=== PATIENT | male | born 1960 | race Caucasian/White ===

== ENCOUNTER 2023-12-05 14:05 | Inpatient (IN) | payer OTHER, SELFPAY ==
[2023-12-05] VITALS (11 sets, daily range): BP systolic 82–163; BP diastolic 60–145; BMI 33.0
--- NOTE | 2023-12-05 12:46 | ED.GENMED ---
History of Present Illness
General
Chief Complaint: Skin Problem
Source: patient, records and spouse
Time Seen by Provider: 12/05/23 12:28
Travel History
Have you had any contact with someone who has COVID-19?: No
Do you have any symptoms of coronavirus? Fever > 100 degrees, chills, cough, shortness of breath, sore throat, loss of taste or smell, muscle aches, or headache?: No
History of Present Illness
History of Present Illness:
63-year-old male presented to the ER via EMS from [facility] for evaluation of left wrist erythema, edema, discharge that is reportedly not responding to IV vancomycin for which patient is currently being treated for a septic joint with bacteremia.
Patient has a PICC line in the same left upper extremity as he also had infection within the right wrist but the right wrist is reportedly getting much better. Patient's Vanco trough reportedly came back at 25 today. is concerned because the
last few days patient is also started to hallucinate stating that he is oftentimes stating that he is at home and sometimes with some babbling speech. Patient has been at [facility] for over 30 days and this is not typical of him. Patient has no
concerns at this time, denying any fevers, pain or any other concerns.
Past History
Past History
ED Past Medical History: Arrthythmia, CHF, IDDM, Psychiatric (depression) and Other (chronic back pain. chronic opioid use)
ED Past Surgical History: Orthopedic and Other
Social History
Tobacco: Non-smoker
Alcohol: None
Drug: None
Personal:
Living: with family
Employment: Employed
Family History
Family History: Other (Noncontributory)
Review of Systems
Review of Systems
All Other Systems: ROS reviewed and negative except as documented in HPI and ROS
Phy Exam
Physical Exam
Physical Exam:
GENERAL: Alert , in no apparent distress
EYE: conjunctiva clear
Head: Normocephalic atraumatic
NECK: Supple,
ENT: mmm.
LUNGS: no acute respiratory distress
NEUROLOGICAL: Alert and oriented
SKIN: Warm and dry, left wrist has significant erythema along the dorsum of the hand over the metacarpals extending into the distal to mid forearm on the left. There is a small area of dehisced wound where there is blood-tinged serosanguineous
drainage. Patient has a left wrist drop and difficulty extending fingers which he reports is baseline since his surgeries.
MUSCULOSKELETAL: well perfused. Easily palpable radial pulse. Cap refill less than 2 seconds.
PSYCH: Normal and appropriate interaction.
Scores
Heart Failure Risk
Heart Failure Risk Score: Not Applicable
Heart Score for Chest Pain Patients
STEMI patient?: Not applicable
Withdrawal Assessment of Alcohol
Withdrawal Assessment Completed?: Not applicable
Course
Orders/Labs/Results
Orders:
Orders
12/05/23 12:37
Basic Metabolic Panel Urgent
Complete Blood Count/With Diff Urgent
Comprehensive Metabolic Panel Urgent
ESR [Erythrocyte Sed Rate] Urgent
CR Chest - 2 Views Urgent
Comment:
Reason For Exam: PICC placement check
12/05/23 12:40
Consult Infectious Disease [INFECTIOUS DISEASE CONSULT] Urgent
Consulting Provider: Mirian Yeager
Was physician already notified: Yes
CRP [C-Reactive Protein] Urgent
12/05/23 12:42
CR Wrist - Left Min 3 Views Urgent
Comment:
Reason For Exam: recent septic joint, worsening erythema
12/05/23 12:45
Blood Culture Q30M
JUSTIN Source: Blood/Venous
Specimen Description:
12/05/23 13:15
Blood Culture Q30M
JUSTIN Source: Blood/Venous
Specimen Description:
12/05/23 13:37
CT Head W/o Iv Contrast Urgent
Comment:
Reason For Exam: confusion
12/05/23 13:39
Admit/Transfer Patient As Directed
Co-Sign Provider:
Level of Care: Inpatient admission
Assign to:: Medical/Surgical
Physician / Group: Jack Shaw
Diagnosis: Left wrise osteomyelitis, hallucination
Reason for Hospitalization: Left wrise osteomyelitis, hallucination
Expected length of stay greater than two midnights?: Yes
ELOS- Estimated Length of Stay in days: 3
I certify the patient meets the requirements for IP care: Yes
12/05/23 13:43
Code Status As Directed
Resuscitation Status: Full Code
12/05/23 13:47
Non Vasc Upper Ext Left US [US Non Vasc UPPER Ext LT] Urgent
Comment:
Reason For Exam: possible septic joint
Vital Signs
Initial and Last Documented VS:
Initial Vital Signs
BP
102/66
12/05/23 12:10
Last Documented Vital Signs
Temp Pulse Resp BP Pulse Ox
98.5 F 66 16 114/69 96
12/05/23 12:22 12/05/23 12:22 12/05/23 12:22 12/05/23 13:00 12/05/23 12:36
MDM/Problems Addressed
Differential Diagnosis Includes:
Recurring left wrist cellulitis, septic joint, abscess, postop inflammatory changes
MDM/Problems Addressed:
Patient presenting to the emergency department for evaluation of continued and worsening left wrist erythema and edema despite being on multiple antibiotics for recent septic joint. Patient has undergone multiple surgeries with debridement and has
been on IV antibiotics for an extended period of time. He was sent to the emergency department to be evaluated by infectious disease to help facilitate further care as his current antibiotic regimen does not seem to be working. Will notify both
infectious disease as well as orthopedic team. I do anticipate need for admission.
Chronic conditions affecting care: DM
*Radiology
Radiology exam reviewed: radiology read reviewed
*Pulse Oximetry
Patient hypoxic: no
*Critical Care Note
Total Time (30-74mins, 75-104mins- exclusive of procedures): Not Applicable
Patient Management
Discussion with other providers: Hospitalist and Program Checker
Escalation/DeEscalation of care consider admission/obs:
12/05/2023 1250 PM: I spoke with both infectious disease as well as orthopedics. ID will evaluate the patient. Orthopedics is in agreement with workup thus far but is requesting us to add on an x-ray of the wrist. They will be in consult as well.
Hospitalist is aware and accepts patient for continued evaluation and treatment. I did receive another notification from orthopedics requesting an ultrasound as patient did not do well with MRIs last time he was here.
ED Attending Note
-
Portions of this chart may have been created with voice recognition software.� Occasional wrong word or��sound alike� substitutions may have occurred due to the inherent limitations of voice recognition software.
Discharge Plan
Departure
Patient Disposition: Admit
Date of Disposition: 12/05/23
Time of Disposition: 13:15
Presentation/result/management discussed w/ accepting MD/DO: Hospitalist
Discharge Problem:
Septic arthritis of wrist, left
Interventions
Interventions:
*Risk Screen - Suicide Last Done: 12/05/23 12:22
*General Assessment Last Done: 12/05/23 12:22
*Neglect/Abuse Screening Last Done: 12/05/23 12:22
ED- Fall Risk Assessment Last Done: 12/05/23 12:31
*ED COVID-19 Vaccine History Last Done: 12/05/23 12:22
ED-Skin Assessment Last Done: 12/05/23 12:31
--- NOTE | 2023-12-05 13:38 | PHANOTE ---
called [facility], no paperwork found with patient , used paperwork for patient on 11/15/23
--- NOTE | 2023-12-05 13:48 | HPS.HSE ---
Family Physician
-
Family Physician: Ck Ledezma
Chief Complaint
-
Left wrist swelling, hallucination
History of Present Illness
Patient is 64-year-old male with past medical history of chronic diastolic congestive heart failure, history of severe RA with recurrent flare, paroxysmal atrial fibrillation on Eliquis, chronic pain and narcotic dependence, essential hypertension,
hyperlipidemia, neuropathy, history of lumbar spinal surgery, MSSA bacteremia, recent bilateral wrist septic arthritis requiring washout and on IV antibiotics was sent to ER from [facility] after patient was noted to having recurrence of left
wrist swelling. Patient initially had right wrist erythema/swelling/pain which did not improve with usual steroid injections. Patient required I&D washout of the joint and concern of septic arthritis. Patient also had developed new left wrist
septic arthritis for which patient underwent washout. Postprocedure patient was maintained on IV antibiotics. Unfortunately this did not improve and patient required repeat washout on 11/15. At this point patient in rehab and on vancomycin and
Levaquin through 12/12. Unfortunately patient started having recurrent left wrist swelling, patient had an outpatient ultrasound of the area which showed possible small fluid collection. No reported fever episode.
On top of that patient started to having episodes of hallucination yesterday and was seeing kids in the room. Patient oriented to time place and person in ER. Per spouse patient nonambulatory for last 6 months, have lumbar spinal surgery in the
past and weakness from that.
Patient denies having chest pain/shortness of breath/abdominal pain/nausea/vomiting/diarrhea.
Medical History
Past Medical History
Past Medical History: Reports Other
Additional Past Medical History:
chronic diastolic congestive heart failure, history of severe RA with recurrent flare, paroxysmal atrial fibrillation on Eliquis, chronic pain and narcotic dependence, essential hypertension, hyperlipidemia, neuropathy, history of lumbar spinal
surgery, MSSA bacteremia, recent bilateral wrist septic arthritis
Past Surgical History: Reports Other
Social History
Tobacco: Former Smoker
Alcohol: None
Personal:
Living: Other ([facility])
Family History
Family History: Not pertinent
Allergies / Home Medications
Allergies reflects when Allergies were last updated in [employer].
Home Medications with original date entered in [employer]
Allergy/Medication List:
Allergies
Allergy/AdvReac Type Severity Reaction Status Date / Time
cefazolin Allergy Intermediate Rash; Verified 12/05/23 12:30
Leukocytoclastic
vasculitis
ertapenem Allergy Hives Verified 12/05/23 12:30
grass pollen Allergy Itchy Verified 12/05/23 12:30
eyes,
headaches
house dust Allergy nose gets Verified 12/05/23 12:30
stuffed
up/sinus
problems
mold Allergy nose gets Verified 12/05/23 12:30
stuffed
up/sinus
problems
levofloxacin [From Levaquin] AdvReac Pharmacy Verified 12/05/23 12:30
to Review
Home Medications
bupropion HCl 75 mg tablet 75 mg PO BID Mental Health/Anxiety 05/01/22
folic acid 1 mg tablet 2 mg PO DAILY Supplement 05/15/23
gabapentin 100 mg capsule 200 mg PO HS Pain 05/15/23
apixaban 5 mg tablet (Eliquis) 5 mg PO BID 30 days #60 tabs 05/18/23
famotidine 20 mg tablet 20 mg PO DAILY Gastrointestinal Issue 10/14/23
polyethylene glycol 3350 17 gram oral powder packet (Miralax) 17 g PO DAILY Constipation 10/15/23
bacitracin zinc 500 unit/gram topical ointment 1 applic topical DAILY #1 g 10/23/23
acetaminophen 325 mg tablet (Tylenol) 650 mg PO Q4HPRN PRN mild pain 11/14/23
amiodarone 200 mg tablet (Pacerone) 200 mg PO DAILY 11/14/23
bisacodyl 10 mg rectal suppository (Dulcolax (bisacodyl)) 10 mg WV DAILY PRN constipation 11/14/23
guaifenesin 600 mg tablet, extended release 12 hr (Mucinex) 600 mg PO BID 11/14/23
ibuprofen 600 mg tablet 600 mg PO DAILYPRN PRN moderate pain 11/14/23
insulin lispro 100 unit/mL subcutaneous pen (Humalog KwikPen (U-100) Insulin) 1 sliding scale dose SC DIRECTED 11/14/23
magnesium hydroxide 400 mg/5 mL oral suspension (Milk of Magnesia) 30 ml PO DAILY PRN if no bm by 4th day 11/14/23
melatonin 5 mg tablet 5 mg PO HS 11/14/23
sodium phosphates 19 gram-7 gram/118 mL enema (Fleet Enema) 118 ml WV DAILY PRN constipation 11/14/23
acetaminophen 500 mg tablet (Tylenol Extra Strength) 1,000 mg PO TID 12/05/23
alteplase 2 mg intra-catheter solution (Cathflo Activase) 2 mg intra-catheter DAILYPRN PRN iv use 12/05/23
furosemide 40 mg tablet (Lasix) 40 mg PO DAILY 12/05/23
levofloxacin 750 mg tablet 750 mg PO DAILY 12/05/23
metoprolol tartrate 50 mg tablet (Lopressor) 50 mg PO Q12H 12/05/23
oxycodone 5 mg tablet 5 mg PO Q8HPRN PRN moderate pain 12/05/23
prednisone 5 mg tablet 5 mg PO DAILY 12/05/23
sennosides 8.6 mg tablet (senna) 8.6 mg PO DAILY 12/05/23
venlafaxine 75 mg tablet 75 mg PO HSPRN PRN anixety 12/05/23
Review of Systems
-
A 12 point ROS was completed and negative except as noted: Yes
Physical Exam
Vital Signs
Vital Signs
Temp Pulse Resp BP Pulse Ox
98.5 F 66 16 114/69 96
12/05/23 12:22 12/05/23 12:22 12/05/23 12:22 12/05/23 13:12/05/23 12:36
Physical Exam
General: Appears in Distress
HEENT: Oxygen
Respiratory: Clear
Cardiac: S1/S2 and Regular Rhythm; No Tachycardia
GI: Soft, Non Tender, Non Distended and Normal Bowel Sounds
Musculoskeletal: No Edema and Other (Left wrist dorsal surface suture, wound dehiscence)
Neuro: AO x 3 and No Motor Deficits
Psych: Calm
Data Reviewed
-
Diagnostic Radiology: Image Personally Visualized and interpreted and Discussed with Family
Lab Data: Labs Reviewed by me and Discussed with Family
Impression/Plan
-
1. Left wrist osteomyelitis
Left wrist cellulins and soft tissue infection
-Patient have underwent I&D/washout of left wrist on 11/01 and 11/15 by orthopedic service
-Pathology was sampled from the OR showing osteomyelitis
-Patient has been maintained on IV vancomycin and Levaquin through PICC line in left arm, last dose 12/12/2023
-Left wrist erythymatous/tender to touch with minimal wound dehiscence
-Orthopedics and ID have been consulted for further help
-Further imaging based on Ortho recommendation.
-Hold on ID eval before resumption of IV abx, family concerned abx causing halluciation. Possible levaquin playing role
2. Acute TME
Hallucination episode
-Patient on multiple medication which can give encephalopathy. This includes oxycodone/gabapentin/venlafaxine/bupropion/Levaquin
-Hold oxycodone and gabapentin, provide Tylenol for pain control
-ID evaluation is requested and if need to change levaquin
-CT Head as some slurring of words
3. Parox afib
- rate controlled. hold eliquis till no surgical need
4. IDDM
- continue metformin HS, ISS added
5. Chronic diastolic CHF
- no signs of exacerbation, cotninue home dose lasix
history of severe RA with recurrent flare
Chronic steroid use
chronic pain and narcotic dependence
essential hypertension
hyperlipidemia
neuropathy
history of lumbar spinal surgery
h/o MSSA bacteremia
recent bilateral wrist septic arthritis
DVT PPX - scd
Full code
Total time spent : 78 mins
I personally saw and examined the patient.
I have reviewed all diagnostic interpretations and treatment plans as written.
Time includes patient management by me, time spent at the patients bedside, time to review lab and imaging results, discussing patient care, documentation in the medical record, and time spent with the family or caregiver and discussing care plan
with RN/Consultants.
--- NOTE | 2023-12-05 14:28 | CON.ID ---
Consultation
-
Date/Time Consultation Requested: 12/05/23 12:40
Date/Time Consultation Performed: 12/05/23 14:30
Requesting Provider: Skylar
Performing Provider: Dr Yeager
Reason for Consultation: osteomyelitis
Chief Complaint / Past History
Chief Complaint
Left wrist swelling, hallucination
History of Present Illness
Mr Camp is a 63 year old male with history of RA on remicaide/low dose prednisone, CHF who first presented here for bilateral hand pain 10/04/23 He had recently had steroid injections, he was found to be bacteremic with MSSA, had MAXX and underwent R
hand I&D 10/16, left hand I&D was recommended but refused by patient. He was discharged with a plan for 6 weeks of cefazolin. He was discharged. He signed himself out of a nursing facility and missed several doses of antibiotics subsequently he
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 He
underwent left wrist I&D first on 11/01 (culture negative) and again on 11/15 (with serratia) - notably with severe infection and new diagnosis of osteomyelitis. Given this new finding I extended the vancomycin course through 12/12. His OR culture
later resulted with Serratia which was a surprise - cefepime was added to the He was discharged to nursing facility. He then developed a relapse/progression of the nonblanching rash 11/22, mild eosinophilia with AEC 530, switched to ertapenem.
Then Dec 01 (about 1 week ago) I was in contact with the treating physician there - Latrell De Jesus - Dr Ramsey, he contacted me via tiger text and sent photos again with a nonblanching vasculitic type rash - it was not hives in my opinion - did not appear
raised, quite red and subcuticular appearing. A CBC was done and his AEC was 1.0 (eosinophilia) we switched patient to levofloxacin 750 mg and I recommended a steroid taper from pred 0.5 mg/kg/day as I thought it was a relapse of the
leukocytoclastic vasculitis. Patient fell out of bed on to the wrist. Patient refused the steroids (I wasnt notified, says he needed to complete the taper from rheum first thinks he was on pred 2.5 TID at that time), then patient began to get
combative and dose of levaquin was decreased to 500 mg however hallucination ongoing and he was referred to the ER. Increased L wrist swelling has been noted particularly today - new dehsicence/drainage. Patient denies having chest pain/shortness
of breath/abdominal pain/nausea/vomiting/diarrhea.
Since arrival here he has been afebrile, bp stable, wbc 9.1, hgb 9.7, plt 305, esr 70 down from 134, crp 118 from 85, cr 0.9, UDS pending, wrist XR: Extensive destruction and erosions within the distal forearm, wrist, and proximal hand compatible
with extensive osteomyelitis/septic arthropathy. There is extensive soft tissue edema within the dorsum of the wrist and hands with osseous debris present, including a dislocated carpal bone.
Past History
Additional Past Medical History:
chronic diastolic congestive heart failure, history of severe RA with recurrent flare, paroxysmal atrial fibrillation on Eliquis, chronic pain and narcotic dependence, essential hypertension, hyperlipidemia, neuropathy, history of lumbar spinal
surgery, MSSA bacteremia, recent bilateral wrist septic arthritis
Additional Past Surgical History:
as per hpi
Allergy History:
cefazolin Allergy (Intermediate, Verified 12/05/23 12:30)
Rash; Leukocytoclastic vasculitis
ertapenem Allergy (Verified 12/05/23 12:30)
Hives
grass pollen Allergy (Verified 12/05/23 12:30)
Itchy eyes, headaches
house dust Allergy (Verified 12/05/23 12:30)
nose gets stuffed up/sinus problems
mold Allergy (Verified 12/05/23 12:30)
nose gets stuffed up/sinus problems
Medications Reviewed: Yes
Social History
Tobacco: Former Smoker
Alcohol: None
Drug: None
Family History
Family History: Not Pertinent
Review of Systems
Review of Systems
General: Negative Fever or Chills
Vital Signs
Temp Pulse Resp BP Pulse Ox
98.5 F 66 16 114/69 96
12/05/23 12:22 12/05/23 12:22 12/05/23 12:22 12/05/23 13:00 12/05/23 12:36
Physical Exam
Physical Exam
Constitutional: No Acute Distress
Cardiovascular: Regular Rate and S1/S2; Negative Murmur or Rub
Pulmonary: Clear and Symmetric; Negative Wheezes, Rales or Rhonchi
Gastrointestinal: Soft, Non Tender, Non Distended and Normal Bowel Sounds
Skin: Warm and Dry; Negative Rash or Jaundice
Assessment / Plan
Osteomyelitis L wrist due to Serratia and possibly MSSA
Osteomyelitis R wrist due to
- osteomyelitis R wrist - MSSA - for 6 weeks of vancomycin initially planned through 12/12/23
- osteomyelitis of the L wrist - Serratia (MSSA likely as well) - for ertapenem through 01/01/24
- probable progression of L wrist osteomyelitis, possibly due to immunosuppression from remicade
- would obtain further imaging and consult Dr Carbajal
- ESR/CRP noted
- at this point can stop vancomycin
- PICC can be removed before discharge
- would start bactrim 1 DS tab BID through 01/01 - high bioavailability oral
- hold metformin while on bactrim
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
- recommend skin biopsy and pathology - ideally this would be reviewed by a dermatopathologist - probably best done by a funeral service apprentice if possible
- check Hep B/C serologies
- rheumatologic causes including uncontrolled RA can cause a small vessel vasculitis - note patient has RA and appears to have been off of treatment for some time - at least since September I believe (10/03/23?) - will also ask rheumatology to reassess
- took the liberty of ordering RF for the AM - could not locate CCP
- adverse drug therapy also a possible cause but would be very unusual for patient to react to so many diverse drug classes - likely its another cause. Note I had previously attributed this rash to cefazolin, would be unusual to also react to
ertapenem, and levofloxacin. Ongoing infection also a possible cause - note that he has been on aggressive treatment prior to this visit
- steroids also often used in these cases typically at a higher dose than patient currently on, would suggest that benefits likely outweigh the risks in this scenario, note that remicade typically given at 2 month intervals and last dose was about 2
months ago
- note that uncontrolled RA could also delay wound healing
Care Review
Plan reviewed with: Physician (Dr Shaw - history)
[2023-12-05 15:14] LABS: % Basophils 0.7 % (0-2); % Eosinophils 10.1 % (0-6); % Immature Granulocytes 0.6 % (0-0.5); % Lymphocytes 13.2 % (20.5-51.1); % Monocytes 13.3 % (1.7-9.3); % Neutrophils 62.1 % (42.2-75.2); Absolute Basophils 0.1 10^3/uL (0-0.2); Absolute Eosinophils 0.9 10^3/uL (0-0.7); Absolute Immature Granulocytes 0.1 10^3/uL (0-0.05); Absolute Lymphocytes 1.2 10^3/uL (1.2-3.4); Absolute Monocytes 1.2 10^3/uL (0.1-0.6); Absolute Neutrophils 5.6 10^3/uL (1.4-6.5); Hematocrit 30.4 % (39.0-52.0); Hemoglobin 9.7 g/dL (13.0-18.0); Mean Corp Hgb Conc. 31.9 g/dL (33.0-37.0); Mean Corpuscular Hgb 28.6 pg (27.0-31.0); Mean Corpuscular Volume 89.7 fL (80.0-94.0); Mean Platelet Volume 9.2 fL (7.4-10.4); Nucleated Red Blood Cells % 0 % (-); Platelet Count 305 10^3/uL (130-400); Red Blood Cell Count 3.39 10^6/uL (4.70-6.10); Red Cell Dist. Width 14.5 % (11.5-14.5); White Blood Cell Count 9.1 10^3/uL (4.8-10.8)
[2023-12-05 15:23] LABS: ALT (SGPT) 17 U/L (0-50); AST (SGOT) 34 U/L (17-59); Albumin 2.7 g/dl (3.5-5.0); Alkaline Phosphatase 120 U/L (38-126); Blood Urea Nitrogen 10 mg/dl (9-20); Calcium 8.2 mg/dl (8.4-10.2); Carbon Dioxide 33 mmol/L (22-30); Chloride 101 mmol/L (98-107); Estimated Creatinine Clearance 98 ml/min; Glucose 111 mg/dl (70-99); Potassium 4.1 mmol/L (3.5-5.1); Sodium 133 mmol/L (135-145); Total Bilirubin 0.5 mg/dl (0.2-1.3); Total Protein 5.6 g/dl (6.3-8.2); eGFR > 60.00
[2023-12-05 15:31] LABS: Erythrocyte Sed Rate 70 mm/hour (0-20)
[2023-12-05] MEDS: TYLENOL 1000 MG PO ×2 (17:31→21:36)
[2023-12-05] MEDS: LOPRESSOR 50 MG PO (21:36)
[2023-12-05] MEDS: EFFEXOR PO (21:39)
--- NOTE | 2023-12-05 21:43 | VATNOTE ---
PT READMITTED FROM SNF WITH 4FR SL L PICC INSERTED 10/19. DRSG INTACT. ENTIRE LUE GROSSLY SWOLLEN AND VERY RED, TENDER AND WARM TO THE TOUCH. L HAND WITH RECENT SUTURES S/P HAND SURGERY PER . PT NOT COMPLETELY ORIENTED AND INFORMATION OBTAINED
FROM AND CHART. PT SEEN BY ID TODAY. PT HAS NO CURRENT NEED FOR ANY IV ACCESS. WILL DEFER PICC REMOVAL/RD AND ANY OTHER CONSIDERATIONS TO MD IN AM. REPORTS DR JEFFERY TO SEE PT IN AM. PCN AWARE OF MY INTERVENTION AND PLAN OF CARE.
[2023-12-06] VITALS (11 sets, daily range): BP systolic 94–140; BP diastolic 56–83; BMI 33.0
[2023-12-06] MEDS: TYLENOL 650 MG PO (02:36)
[2023-12-06 04:57] LABS: Hematocrit 31.2 % (39.0-52.0); Hemoglobin 9.8 g/dL (13.0-18.0); Mean Corp Hgb Conc. 31.4 g/dL (33.0-37.0); Mean Corpuscular Hgb 28.7 pg (27.0-31.0); Mean Corpuscular Volume 91.5 fL (80.0-94.0); Mean Platelet Volume 9.4 fL (7.4-10.4); Platelet Count 285 10^3/uL (130-400); Red Blood Cell Count 3.41 10^6/uL (4.70-6.10); Red Cell Dist. Width 14.5 % (11.5-14.5); White Blood Cell Count 8.7 10^3/uL (4.8-10.8)
[2023-12-06 05:37] LABS: Blood Urea Nitrogen 9 mg/dl (9-20); Calcium 8.7 mg/dl (8.4-10.2); Carbon Dioxide 30 mmol/L (22-30); Chloride 100 mmol/L (98-107); Estimated Creatinine Clearance 111 ml/min; Glucose 101 mg/dl (70-99); Potassium 3.8 mmol/L (3.5-5.1); Sodium 135 mmol/L (135-145); eGFR > 60.00
--- NOTE | 2023-12-06 06:29 | W.PN.ADMCERT ---
Inpatient Certification Note
-
Post Hospital Care:
Post-hospital care is identified in collaboration with the attending/treatment team as well as the patient�s individual needs.
Post-hospital care determinations will be documented in the Case Management assessment and in subsequent notes.
--- NOTE | 2023-12-06 06:30 | W.PN.UPDATE ---
Update Note
Progress Note Update
Pt seen and chart reviewed
Persistent and severe infection Left wrist with changing bacteria as well
Very difficult to control
Has already had extensive bone debridement by me--the bone loss on xray is due to surgical debridement mostly
The only thing I can offer is repeat I and D procedures as needed
Recent U/S suggests another fluid collection so will take to OR today
Most likely will require wrist fusion at later date once infection is eradicated (as carpus/wrist bony anatomy compromised by infection), but amputation is still a remote possibility
Prognosis very guarded at this point
GGMD
[2023-12-06] MEDS: TYLENOL 1000 MG PO ×3 (08:57→22:35)
[2023-12-06] MEDS: LASIX 40 MG PO (08:58)
[2023-12-06] MEDS: LOPRESSOR 50 MG PO ×2 (08:58→22:45)
[2023-12-06] MEDS: PACERONE 200 MG PO (08:58)
[2023-12-06] MEDS: PEPCID 20 MG PO (08:58)
[2023-12-06] MEDS: FOLVITE 2 MG PO (08:58)
[2023-12-06] MEDS: EFFEXOR 75 MG PO (08:58)
--- NOTE | 2023-12-06 09:20 | VATNOTE ---
12/06 LEFT PICC D/C'ed PER ORDER. NEW IV START IN LEFT ARM FOR WASHOUT.
--- NOTE | 2023-12-06 10:44 | PTCARENOTE ---
pt refused prednisone this morning as well as miralax. pt is npo to go for washout this afternoon. pt restarted on wellbutrin since hallucinations have subsided.
--- NOTE | 2023-12-06 10:59 | CM ---
Reviewed the chart notes and spoke with the patient at the bedside. Per ortho, to OR today. The patient resides with his spouse in a one story home with one step to enter. The patient reports on DME is a shower seat. The patient is current with
VN. The patient has been to [facility] and [facility] in the past. The patient confirmed his pharmacy of choice is the [facility] [address]. The patient's discharge plans will depend on the patient's progress. CM continues to be available to
patient/family and is monitoring medical plan for needs at discharge.
Plan: Discharge plans will depend on the patient's progress.
[2023-12-06] MEDS: WELLBUTRIN REGULAR RELEASE 75 MG PO (11:08)
[2023-12-06] MEDS: BACTRIM DS 800 MG/160 MG 1 TABLET PO ×2 (11:08→22:45)
--- NOTE | 2023-12-06 13:09 | W.PN.HOSP.TC ---
Today's Communication/Plan
-
see note
Assessment / Plan
Assessment / Plan
1. Left wrist osteomyelitis
� � Left wrist cellulins and soft tissue infection
-Patient have underwent I&D/washout of left wrist on 11/01 and 11/15 by orthopedic service
-Pathology was sampled from the OR showing osteomyelitis
-Patient has been maintained on IV vancomycin and Levaquin through PICC line in left arm, last dose 12/12/2023
-Left wrist erythymatous/tender to touch with minimal wound dehiscence and moderate swelling.
-LUE US showing 2x0.7x1.7cm complex collection in dorsum of wrist suspicious of abscess
-Ortho planning to take patient for I&D
-ID recommended to switch to oral Bactrim therapy, PICC line has been discontinued.
2. Acute TME - improved
� � Hallucination episode
-Patient on multiple medication which can give encephalopathy.� This includes oxycodone/gabapentin/venlafaxine/bupropion/Levaquin
-Hold oxycodone and gabapentin, provide Tylenol for pain control
-ID evaluation is requested and if need to change levaquin
-CT Head as showing some cerebral atrophy
3. Parox afib
- rate controlled. hold eliquis till no surgical need
4. IDDM
- continue metformin HS, ISS added
5. Chronic diastolic CHF
- no signs of exacerbation, continue home dose lasix
6. Chronic back pain
-Toradol seems to help in the past, ordered
7. Nonblanching rash
-Involving both upper and lower extremity, very pronounced in lower extremity.
-No dermatology on-call today, general surgery gracefully will help with skin biopsy
-Patient will need to be follow-up with dermatology outpatient basis for recurrent rash
-on oral prednisone 5mg/d, to be continued
history of severe RA with recurrent flare
Chronic steroid use
chronic pain and narcotic dependence
essential hypertension
hyperlipidemia
neuropathy
history of lumbar spinal surgery
h/o MSSA bacteremia
recent bilateral wrist septic arthritis
DVT PPX - scd
Full code
Discussed care plan with GS an ID.
Total time spent : 53 mins
I personally saw and examined the patient.
I have reviewed all diagnostic interpretations and treatment plans as written.
Time includes patient management by me, time spent at the patients bedside, time to review lab and imaging results, discussing patient care, documentation in the medical record, and time spent with the family or caregiver and discussing care plan
with RN/Consultants.
Anticipated Discharge: > 48 hours
Subjective/Interval History
-
Date of Service: December 06, 2023
no complains overnight
having back pain
Objective Data
-
Labs:
Laboratory Results
12/06/23
04:34
WBC 8.7
Hgb 9.8 L
Hct 31.2 L
Plt Count 285
Sodium 135
Potassium 3.8
Chloride 100
Carbon Dioxide 30
BUN 9
Creatinine 0.8
Glucose 101 H
Calcium 8.7
Vital Signs:
Vital Signs
Temp Pulse Resp BP Pulse Ox
97.8 F 70 18 94/63 95
12/06/23 11:27 12/06/23 11:27 12/06/23 11:27 12/06/23 11:27 12/06/23 11:27
I&O
12/05/23 12/06/23 12/07/23
06:59 06:59 06:59
Intake Total 720 / 720
Balance 720 / 720
Review of Systems
-
All other systems: Reviewed and negative
Physical Exam
-
General: No Apparent Distress
HEENT: Moist Mucous Membranes
Respiratory: Clear to Auscultation
Cardiac: Regular Rhythm and S1/S2
GI: Soft and Nontender
Musculoskeletal: Other (left dorsal wrist localized swelling with tenderness)
Skin: Rash (nonblanching on bilateral LE)
Neuro: AO x 3 and No Motor Deficits
Psych: Calm
--- NOTE | 2023-12-06 13:44 | CON.GS ---
Consultation
-
Date/Time Consultation Requested: 12/06/2023 12:30 PM
Date/Time Consultation Performed: 12/06/2023
Requesting Provider: Hospitalist
Performing Provider: Stefanie
Reason for Consultation: Skin bx
Medical History
-
Chief Complaint: Left Wrist Swelling, Rash
History of Present Illness:
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
Past Medical History
Past Medical History: Other (Rheumatoid arthritis, CHF, paroxysmal atrial fibrillation, chronic pain, hypertension, hyperlipidemia, neuropathy, MSSA bacteremia, bilateral wrist septic arthritis)
Past Surgical History: Other (Lumbar spinal surgery, wrist procedures)
Social History
Tobacco: Former Smoker
Alcohol: None
Drug: None
Allergies / Home Medications
Allergy/AdvReac Type Severity Reaction Status Date / Time
cefazolin Allergy Intermediate Rash; Verified 12/05/23 12:30
Leukocytoclastic
vasculitis
ertapenem Allergy Hives Verified 12/05/23 12:30
grass pollen Allergy Itchy Verified 12/05/23 12:30
eyes,
headaches
house dust Allergy nose gets Verified 12/05/23 12:30
stuffed
up/sinus
problems
mold Allergy nose gets Verified 12/05/23 12:30
stuffed
up/sinus
problems
Medication Instructions Recorded Confirmed Type
bupropion HCl 75 mg tablet 75 mg PO BID Mental Health/Anxiety 05/01/22 12/05/23 History
folic acid 1 mg tablet 2 mg PO DAILY Supplement 05/15/23 12/05/23 History
gabapentin 100 mg capsule 200 mg PO HS Pain 05/15/23 12/05/23 History
apixaban 5 mg tablet (Eliquis) 5 mg PO BID 30 days #60 tabs 05/18/23 12/05/23 Rx
famotidine 20 mg tablet 20 mg PO DAILY Gastrointestinal 10/14/23 12/05/23 History
Issue
polyethylene glycol 3350 17 gram 17 g PO DAILY Constipation 10/15/23 12/05/23 History
oral powder packet (Miralax)
bacitracin zinc 500 unit/gram 1 applic topical DAILY #1 g 10/23/23 12/05/23 Rx
topical ointment
acetaminophen 325 mg tablet 650 mg PO Q4HPRN PRN mild pain 11/14/23 12/05/23 History
(Tylenol)
amiodarone 200 mg tablet (Pacerone) 200 mg PO DAILY 11/14/23 12/05/23 History
bisacodyl 10 mg rectal suppository 10 mg WA DAILY PRN constipation 11/14/23 12/05/23 History
(Dulcolax (bisacodyl))
guaifenesin 600 mg tablet, 600 mg PO BID 11/14/23 12/05/23 History
extended release 12 hr (Mucinex)
ibuprofen 600 mg tablet 600 mg PO DAILYPRN PRN moderate 11/14/23 12/05/23 History
pain
insulin lispro 100 unit/mL 1 sliding scale dose SC DIRECTED 11/14/23 12/05/23 History
subcutaneous pen (Humalog KwikPen
(U-100) Insulin)
magnesium hydroxide 400 mg/5 mL 30 ml PO DAILY PRN if no bm by 4th 11/14/23 12/05/23 History
oral suspension (Milk of Magnesia) day
melatonin 5 mg tablet 5 mg PO HS 11/14/23 12/05/23 History
sodium phosphates 19 gram-7 118 ml WA DAILY PRN constipation 11/14/23 12/05/23 History
gram/118 mL enema (Fleet Enema)
acetaminophen 500 mg tablet 1,000 mg PO TID Pain 12/05/23 12/05/23 History
(Tylenol Extra Strength)
alteplase 2 mg intra-catheter 2 mg intra-catheter DAILYPRN PRN 12/05/23 12/05/23 History
solution (Cathflo Activase) iv use
diphenhydramine HCl 25 mg capsule 25 mg PO BIDPRN PRN RASG 12/05/23 12/05/23 History
(Benadryl)
furosemide 40 mg tablet (Lasix) 40 mg PO DAILY 12/05/23 12/05/23 History
hydromorphone 2 mg tablet 2 mg PO Q6HPRN PRN SEVERE PAIN 12/05/23 12/05/23 History
levofloxacin 750 mg tablet 750 mg PO DAILY 12/05/23 12/05/23 History
metformin 500 mg tablet,extended 1,000 mg PO DAILY 12/05/23 12/05/23 History
release 24 hr
metoprolol tartrate 50 mg tablet 50 mg PO Q12H 12/05/23 12/05/23 History
(Lopressor)
ondansetron HCl 4 mg tablet 4 mg PO Q6HPRN PRN NAUSEA 12/05/23 12/05/23 History
oxycodone 5 mg tablet 5 mg PO Q8HPRN PRN moderate pain 12/05/23 12/05/23 History
prednisone 5 mg tablet 50 mg PO .TAPER 12/05/23 12/05/23 History
sennosides 8.6 mg tablet (senna) 8.6 mg PO DAILY 12/05/23 12/05/23 History
vancomycin 1.25 gram intravenous 1 g IV Q12H 12/05/23 12/05/23 History
solution
venlafaxine 75 mg tablet 75 mg PO BID 12/05/23 12/05/23 History
venlafaxine 75 mg tablet 75 mg PO HSPRN PRN anixety 12/05/23 12/05/23 History
Review of Systems
-
A 10 point review of systems was completed, and was negative except as per HPI.
Physical Exam
Vital Signs
Temp Pulse Resp BP Pulse Ox
97.8 F 70 18 94/63 95
12/06/23 11:27 12/06/23 11:27 12/06/23 11:27 12/06/23 11:27 12/06/23 11:27
12/05/23 12/06/23 12/07/23
06:59 06:59 06:59
Actual Weight 99.745 kg
Body Mass Index (BMI) 33.0
Lab Results
12/06/23 04:34
12/06/23 04:34
WBC 8.7 10^3/uL (4.8-10.8) 12/06/23 04:34
Hgb 9.8 g/dL (13.0-18.0) L 12/06/23 04:34
Hct 31.2 % (39.0-52.0) L 12/06/23 04:34
Plt Count 285 10^3/uL (130-400) 12/06/23 04:34
Abs Immat Gran (auto) 0.1 10^3/uL (0-0.05) H 12/05/23 14:50
Neutrophils % 62.1 % (42.2-75.2) 12/05/23 14:50
Assessment / Plan
-
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 Skin biopsy has been requested by infectious disease/hospitalist service.
Advised patient of this request. Discussed anticipated procedure in detail. Bedside punch biopsy with local anesthetic and primary closure of biopsy site. Advised regarding risk predominantly related to either bleeding, bruising and chronic wound
healing issues. Any of the patient's concerns or questions were addressed and verbal consent was provided.
At bedside the area of the right lower extremity was cleansed with alcohol swab.
3 mL 1% lidocaine was infiltrated for local field block.
Punch biopsy was obtained through full-thickness dermis into the subcutaneous fat layer.
Primary closure with interrupted 3-0 Prolene x2
Sterile gauze dressing applied
Specimen sent for routine pathology
[2023-12-06] MEDS: TORADOL 15 MG IV ×2 (14:34→21:54)
--- NOTE | 2023-12-06 15:20 | W.PN.RHM ---
Addendum entered and electronically signed by Ryder Wu MD 12/07/23 14:42:
See 12/07 encounter for my assessment and plan.
Ryder Wu MD, [facility]
[phone]
Original Note:
Today's Communication / Plan
-
Assessment/Plan
-
Recommend skin biospy, will await results.
Awaiting hepatis panel
Recommend to check ANCA panel
Dr Randall went to see patient, he was in [place] at the time so was unable to see her. She spoke with LAZARA Yeager about suspected vasculitis, she is okay with increasing prednisone.
Recommend increase to 20 mg prednisone BID.
Subjective Data
-
Pt is a 64 yo with hx of RA, CHF, afib,HTN, HLD, neuropathy, MSSA bacteremia, recent septic arthritis of b/l wrists with multiple washouts. Pt came to ER from [facility] with recurrence of left wrist swelling and pain. To review his history - pt came
to [facility] ED on 10/04 for b/l hand pain, found to be bacteremic with MSSA, underwent R hand I&D by Dr. Carbajal on 10/06, pt refused left hand I&D. He was discharged with plan of 6 weeks Cefazolin. Pt missed several doses of abx, then began to
have incerasing left wrist pain - he was evaluated by Dr. Carbajal and had washout on 11/01 culture negative and then again 11/15 (with Seeratia) and new dx of osteomyelitis. Pt on extended IV vanco course. During this time pt developed a
nonblanching rash on his extremities. Pt admitted yd due to fall onto wrist and increased pain and swelling again. Pt is to have another I&D by Dr. Carbajal this afternoon. Pt also having IV abx discontinued and is being switched to oral Bactrim.
Pupuric rash, non blanching suspected to be leukocytoclastic vasculitis.
Objective Data
-
Vital Signs
Temp Pulse Resp BP Pulse Ox
98.2 F 76 20 140/83 96
12/06/23 15:10 12/06/23 15:10 12/06/23 15:10 12/06/23 15:10 12/06/23 15:10
Microbiology Results
12/05/23 14:50 Blood/Venous Blood Culture - Preliminary
No Growth in 24 hours- Final report to follow
Laboratory Data
12/06/23 04:34
12/06/23 04:34
ESR 70 mm/hour (0-20) H 12/05/23 14:50
C-Reactive Protein 118.40 mg/L (0.0-10.00) H 12/05/23 14:50
Review of Systems
-
General: Chest Pain: No and Fatigue: Yes
Connective Tissue: Joint Pain: Yes and Joint Swelling: Yes
Crystal Arthritis: Left Wrist: Yes
Physical Exam
-
Constitutional: Alert and Oriented
Skin: Rash (Purpuric, non blanching macular rash scattered across all extremities, most notable at RLE. )
Lungs: Clear to Auscultation
Heart: Regular Rate & Rhythm
Extremities: Other (significant swelling at left wrist, with dressing intact. Tender with very limited motion)
Psych: Appropriate Behavior
--- NOTE | 2023-12-06 15:34 | W.PN.ID1 ---
Date of Service
Date of Service: December 06, 2023
Today's Communication
rheum to please consider steroids - believe dose for LCV may be helpful
doubt that antibiotics caused rash wide variety of classes has been tried and it would be very unusual for one patient to react to three disparate classes
bactrim
appreciate everyones input
Assessment / Plan
Osteomyelitis L wrist due to Serratia and possibly MSSA
Osteomyelitis R wrist due to MSSA - resolving
- osteomyelitis R wrist - MSSA - for 6 weeks of vancomycin initially planned through 12/12/23
- osteomyelitis of the L wrist - Serratia (MSSA likely as well) - for ertapenem through 01/01/24
- appreciate orthopedics input - please send cultures (aerobic and anaerobic) from the OR
- would start bactrim 1 DS tab BID through 01/01 - high bioavailability oral
- hold metformin while on bactrim
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
- recommend skin biopsy and pathology - appreciate gen surg input
- check Hep B/C serologies
- rheumatologic causes including uncontrolled RA can cause a small vessel vasculitis - note patient has RA and appears to have been off of treatment for some time - at least since September I believe (10/03/23)
- adverse drug therapy also a possible cause but would be very unusual for patient to react to so many diverse drug classes - likely its another cause. Note I had previously attributed this rash to cefazolin, would be unusual to also react to
ertapenem, and levofloxacin. Ongoing infection also a possible cause - note that he has been on aggressive treatment prior to this visit
- steroids also often used in these cases typically at a higher dose than patient currently on, would suggest that benefits likely outweigh the risks in this scenario, will defer to rheumatology
- note that uncontrolled RA could also delay wound healing
Chief Complaint
-: Other (rash, osteo)
Subjective / Review of Systems
afebrile
bp stable
rash tolerable
no leukocytosis
cr stable
no new complaints
for the OR this afternoon
Vital Signs / Physical Exam
Vital Signs
Vital Signs
Temp Pulse Resp BP Pulse Ox
98.2 F 76 20 140/83 96
12/06/23 15:10 12/06/23 15:10 12/06/23 15:10 12/06/23 15:10 12/06/23 15:10
Physical Exam
Constitutional: No Acute Distress
Cardiovascular: Regular Rate and S1/S2; Negative Murmur or Rub
Pulmonary: Clear and Symmetric; Negative Wheezes or Rales
Gastrointestinal: Soft, Non Tender, Non Distended and Normal Bowel Sounds
Skin: Warm, Dry and Rash (nonblanching); Negative Jaundice
Objective Data
Lab Data
Lab Results
12/06/23 04:34
12/06/23 04:34
ESR 70 mm/hour (0-20) H 12/05/23 14:50
Estimated Creat Clear 111 ml/min 12/06/23 04:34
Total Bilirubin 0.5 mg/dl (0.2-1.3) 12/05/23 14:50
AST 34 U/L (17-59) 12/05/23 14:50
ALT 17 U/L (0-50) 12/05/23 14:50
Alkaline Phosphatase 120 U/L (38-126) 12/05/23 14:50
C-Reactive Protein 118.40 mg/L (0.0-10.00) H 12/05/23 14:50
Most recent labs reviewed.
Micro Results:
12/05/23 14:50 Blood Culture - Preliminary
Blood/Venous No Growth in 24 hours- Final report to follow
12/05/23 18:03 MRSA Screen - Pending
Nose
12/05/23 18:03 Blood Culture - Pending
Blood/Venous
[2023-12-06 16:06] LABS: Rheumatoid Agglutinin Less Than 10 IU (<10 IU)
[2023-12-06 20:25] LABS: Hepatitis B Surface Antigen Negative (Negative)
[2023-12-06 20:43] LABS: Hepatitis B Core Ab, Total Negative (Negative); Hepatitis C Antibody Negative (Negative)
[2023-12-06 21:38] LABS: Glucose - Point of Care 113 mg/dl (70-99)
[2023-12-06] MEDS: SUBLIMAZE 25 MCG IV (21:54)
--- NOTE | 2023-12-06 22:21 | PTCARENOTE ---
Received pt from PACU. Pt AAOx3; dressing to left FA C/D/I. Pt able to move fingers without difficulty; no decreased sensation; cap refill <3 seconds. No c/o pain at this time. VSS. 100% on 2 L NC. Continuing post op vitals per protocol.
[2023-12-06] MEDS: EFFEXOR PO (22:36)
[2023-12-06] MEDS: WELLBUTRIN REGULAR RELEASE PO (22:37)
[2023-12-06 23:00] LABS: Hepatitis B Surface Antibody Indeterminate
[2023-12-07] VITALS (8 sets, daily range): BP systolic 107–129; BP diastolic 56–69; BMI 33.0
[2023-12-07] MEDS: DILAUDID 0.5 MG IV (00:22)
[2023-12-07] MEDS: TYLENOL 650 MG PO (02:37)
[2023-12-07 05:07] LABS: Hematocrit 30.3 % (39.0-52.0); Hemoglobin 9.5 g/dL (13.0-18.0); Mean Corp Hgb Conc. 31.4 g/dL (33.0-37.0); Mean Corpuscular Hgb 28.6 pg (27.0-31.0); Mean Corpuscular Volume 91.3 fL (80.0-94.0); Mean Platelet Volume 9.5 fL (7.4-10.4); Platelet Count 310 10^3/uL (130-400); Red Blood Cell Count 3.32 10^6/uL (4.70-6.10); Red Cell Dist. Width 14.6 % (11.5-14.5); White Blood Cell Count 9.9 10^3/uL (4.8-10.8)
[2023-12-07 05:31] LABS: Blood Urea Nitrogen 12 mg/dl (9-20); Calcium 8.2 mg/dl (8.4-10.2); Carbon Dioxide 30 mmol/L (22-30); Chloride 97 mmol/L (98-107); Estimated Creatinine Clearance 80 ml/min; Glucose 104 mg/dl (70-99); Potassium 3.7 mmol/L (3.5-5.1); Sodium 137 mmol/L (135-145); eGFR > 60.00
[2023-12-07] MEDS: PACERONE 200 MG PO (09:08)
[2023-12-07] MEDS: PEPCID 20 MG PO (09:08)
[2023-12-07] MEDS: EFFEXOR 75 MG PO ×2 (09:08→14:53)
[2023-12-07] MEDS: FOLVITE 2 MG PO (09:08)
[2023-12-07] MEDS: LOPRESSOR 50 MG PO ×2 (09:09→19:57)
[2023-12-07] MEDS: LASIX 40 MG PO (09:09)
[2023-12-07] MEDS: WELLBUTRIN REGULAR RELEASE 75 MG PO ×2 (09:09→14:53)
[2023-12-07] MEDS: TYLENOL 1000 MG PO ×2 (09:09→17:34)
[2023-12-07] MEDS: BACTRIM DS 800 MG/160 MG 1 TABLET PO (09:10)
--- NOTE | 2023-12-07 10:45 | CM ---
Reviewed the chart notes and spoke with the patient and his spouse at the bedside. The patient yesterday underwent extensive irrigation, debridement,and drainage by ortho. Per patient, waiting on cultures. Patient currently on po Bactrim. Will
need PT/OT evaluation for discharge planning. CM continues to be available to patient/family and is monitoring medical plan for needs at discharge.
Plan: Discharge plans will depend on the patient's progress. Back to SNF/rehab or home with VN services.
--- NOTE | 2023-12-07 13:50 | W.PN.RHM ---
Addendum entered and electronically signed by Ryder Wu MD 12/07/23 15:04:
I have seen the patient with Romi Gilbert PA-C and I agree with her assessment and plan with the following additions:
63 yo male with hx of seropositive RA, MSSA bacteremia c/b bilateral wrist septic arthritis, pAF on Eliquis, diastolic HF, HTN, HLD, lumbar spine surgery readmitted for left wrist pain/swelling c/f persistent infection. He has had washouts of both
upper extremities and has been on various antibiotic courses at his nursing facility including cefazolin, ertapenem, vancomycin and Levaquin. Currently being managed with bactrim monotherapy. Course notable for the development of LE cutaneous small
vessel vasculitis initially felt to be due to his antibiotics. He has reportedly had multiple flares of his skin despite switching drugs. Current hospital course notable for left upper extremity fluid collection for which he has been taken for
another washout. Labs notable for high inflammatory markers and eosinophilia. Rheumatology was consulted to aid with vasculitis management.
# Cutaneous Small Vessel Vasculitis
- with upper and LE involvement
- upper extremity rash in the hands and is on its own
- non-blanching palpable purpura
- currently off steroids
- differential is broad, unclear timeline but drug rxn is certainly possible, infection is also a consideration
- RF noted to be normal, low suspicion for rheumatoid vasculitis, this typically presents in patients with severe uncontrolled RA who have had the diagnosis for at least a decade or longer, also more commonly presents as a medium vessel vasculitis
although small vessel involvement is possible, also rheumatoid vasculitis is very rare
- will work up other autoimmune causes
- agree with skin biopsy, recommend sending it off for direct immunofluorescence, await results
- please send the following ANCA, CCP, C3, C4, cryoglobulins, SPEP, Immunoglobulins, repeat UA, Urine protein creatinine ratio, VÍCTOR
- no absolute indication for steroids at this time (patient also refusing)
# Septic Arthritis
- currently on bactrim
- discussed with ID, I am not opposed to reinitiation of steroids if we need to revisit one of the drug classes he has tried in order to adequately control his infection
# Eosinophilia
- non-specific, downtrending
We will continue to follow.
Ryder Wu MD, [facility]
[phone]
Original Note:
Today's Communication / Plan
-
Assessment/Plan
-
Awaiting skin bx results, performed on 12/06.
Will work up for small vessel vasculitis, less like due to rheumatoid, seems to be improving, we will await bx results.
Recommend to check ANCA panel, VÍCTOR, RF, CCP, complement3, complement 4, SPEP, immunoglobulins, cryoglobulins, urinalysis, urine protein creatinine ratio
Pt currently refusing steroids unless absolutely necessary, will hold off for now.
Continue Bactrim per ID
Subjective Data
-
Pt is a 63 yo with hx of RA, CHF, afib, HTN, HLD, neuropathy, MSSA bacteremia, recent septic arthritis of b/l wrists with multiple washouts, admitted 2 days ago due to fall onto left wrist and increased pain and swelling. He has had ongoing septic
arthritis at b/l wrists, with multiple washouts at left wrist. Pt had most recent washout at left wrist yesterday. During this time he has had waxing and waning nonblanching rash on his extremties. He had punch biopsy of rash on RLE yesterday. He is
currently on oral Bactrim, IV abx were d/c'd.
Objective Data
-
Vital Signs
Temp Pulse Resp BP Pulse Ox
98.3 F 71 19 110/56 93
12/07/23 07:16 12/07/23 07:16 12/07/23 07:16 12/07/23 07:16 12/07/23 07:16
Microbiology Results
12/06/23 20:55 Hand - Left Gram Stain - Preliminary
12/05/23 18:03 Nose MRSA Screen - Final
No Methicillin Resistant Staphylococcus aureus isolated.
12/05/23 18:03 Blood/Venous Blood Culture - Preliminary
No Growth in 24 hours- Final report to follow
12/05/23 14:50 Blood/Venous Blood Culture - Preliminary
No Growth in 24 hours- Final report to follow
Laboratory Data
12/07/23 04:01
12/07/23 04:01
ESR 70 mm/hour (0-20) H 12/05/23 14:50
C-Reactive Protein 118.40 mg/L (0.0-10.00) H 12/05/23 14:50
Rheumatoid Factor Less than 10 iu (<10 IU) 12/06/23 04:34
Review of Systems
-
General: Chest Pain: No, Shortness of Breath: No and Fatigue: Yes
Connective Tissue: Rash: Yes and Joint Pain: Yes
Physical Exam
-
Constitutional: Alert and Oriented
Skin: Rash (non blanching purpuric macular rash at all extremities, most condenses at RLE)
Lungs: Clear to Auscultation
Heart: Regular Rate & Rhythm
Psych: Appropriate Behavior
--- NOTE | 2023-12-07 14:08 | W.PN.HOSP.TC ---
Today's Communication/Plan
-
monitor hbg, recheck ordered
abx per ID
pt/family declined for steroids dose to be increased
Assessment / Plan
Assessment / Plan
1. Left wrist osteomyelitis
� � Left wrist cellulins and soft tissue infection
-Patient have underwent I&D/washout of left wrist on 11/01 and 11/15 by orthopedic service
-Pathology was sampled from the OR showing osteomyelitis
-Patient has been maintained on IV vancomycin and Levaquin through PICC line in left arm, last dose 12/12/2023
-Left wrist erythematous/tender to touch with minimal wound dehiscence and moderate swelling.
-LUE US showing 2x0.7x1.7cm complex collection in dorsum of wrist suspicious of abscess
-ID recommended to switch to oral Bactrim therapy, PICC line has been discontinued.
-s/p I&D by ortho service yesterday. Patient bumped into bed/something when getting back in bed, have bleeding from the incision site. discussed with orthopedic surgeon and who recommended continual a pressure bandage. Patient required removal of
extensor tendon and bone debridement causing a lot of oozing/bleeding underneath.
2. Acute TME - improved
� � Hallucination episode
-Patient on multiple medication which can give encephalopathy.� This includes oxycodone/gabapentin/venlafaxine/bupropion/Levaquin
-Hold oxycodone and gabapentin, provide Tylenol/tordaol for pain control
-CT Head as showing some cerebral atrophy
3. Parox afib
- rate controlled.
-hold eliquis with ongoing post op bleed
4. IDDM
- maintain on ISS
5. Chronic diastolic CHF
- no signs of exacerbation, continue home dose lasix
6. Chronic back pain
-Toradol seems to help in the past, ordered
7. Nonblanching rash
-Involving both upper and lower extremity, very pronounced in lower extremity.
-No dermatology on-call today, general surgery did beside skin biopsy.
-Patient will need to be follow-up with dermatology outpatient basis for recurrent rash
-on oral prednisone 5mg/d, rheumatology requested dose given to 20 mg twice daily although patient and family adamantly against it.
history of severe RA with recurrent flare
Chronic steroid use
chronic pain and narcotic dependence
essential hypertension
hyperlipidemia
neuropathy
history of lumbar spinal surgery
h/o MSSA bacteremia
recent bilateral wrist septic arthritis
DVT PPX - scd
Full code
Discussed care plan with ID and rheumatology
Total time spent : 53 mins
Anticipated Discharge: > 48 hours
Subjective/Interval History
-
Date of Service: December 07, 2023
bleeding through left hand incision site after possibly bumping it while moving from bathroom to bed
no other issues reported overnight
Objective Data
-
Labs:
Laboratory Results
12/07/23
04:01
WBC 9.9
Hgb 9.5 L
Hct 30.3 L
Plt Count 310
Sodium 137
Potassium 3.7
Chloride 97 L
Carbon Dioxide 30
BUN 12
Creatinine 1.1
Glucose 104 H
Calcium 8.2 L
Vital Signs:
Vital Signs
Temp Pulse Resp BP Pulse Ox
98.3 F 71 19 110/56 93
12/07/23 07:16 12/07/23 07:16 12/07/23 07:16 12/07/23 07:16 12/07/23 07:16
I&O
12/06/23 12/07/23 12/08/23
06:59 06:59 06:59
Intake Total 720 / 720 220 / 220
Output Total 250 / 250
Balance 720 / 720 -30 / -30
Review of Systems
-
All other systems: Reviewed and negative
Musculoskeletal: Denies Joint Pain, Arthralgias or Myalgias
Physical Exam
-
General: Negative Respiratory Distress or Appears in Distress
HEENT: Negative Oxygen
Musculoskeletal: Other (Left wrist dorsal surface surgical site with bleeding from the incision)
Neuro: Awake, Oriented and No Motor Deficits
--- NOTE | 2023-12-07 16:46 | W.PN.ID1 ---
Date of Service
Date of Service: December 07, 2023
Today's Communication
restart ertapenem given extent of infection and opinion that there is no need to treat vasculitis per rheum
Assessment / Plan
Osteomyelitis L wrist due to Serratia and possibly MSSA
Osteomyelitis R wrist due to MSSA - resolving
- osteomyelitis R wrist - MSSA - for 6 weeks of vancomycin initially planned through 12/12/23
- osteomyelitis of the L wrist - Serratia (MSSA likely as well) - for ertapenem through 01/01/24
- follow OR cultures
- appreciate orthopedics input
- restart ertapenem
- would start bactrim 1 DS tab BID through 01/01 - high bioavailability oral
- hold metformin while on bactrim
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
- awaiting skin biopsy
- Hep B/C serologies previously vaccinated for hep B, hep C negative
- adverse drug reaction also a possible cause but would be very unusual for patient to react to so many diverse drug classes - likely its another cause. Note I had previously attributed this rash to cefazolin, would be unusual to also react to
ertapenem, and levofloxacin. Ongoing infection also a possible cause - note that he has been on aggressive treatment prior to this visit
- appreciate rheum input
Chief Complaint
-: Other (rash, osteo)
Subjective / Review of Systems
afebrile
bp stable
extensive debridement required in the OR
fair amount of bleeding ongoing when I evaluated the patient - discussed with Dr Carbajal who is directing managment
wound cultures in progress
discussed at length with Dr Wu - vasculitis not thought to require treatment at this time - no evidence of end organ damage
Vital Signs / Physical Exam
Vital Signs
Vital Signs
Temp Pulse Resp BP Pulse Ox
98.3 F 71 19 124/67 97
12/07/23 15:34 12/07/23 15:34 12/07/23 15:34 12/07/23 15:34 12/07/23 15:34
Physical Exam
Constitutional: No Acute Distress
Cardiovascular: Regular Rate and S1/S2; Negative Murmur or Rub
Pulmonary: Clear and Symmetric; Negative Wheezes or Rales
Gastrointestinal: Soft, Non Tender, Non Distended and Normal Bowel Sounds
Extremities: Other (pressure dressing in place - there is still some bleeding ongoing)
Skin: Warm and Dry; Negative Rash or Jaundice
Objective Data
Lab Data
Lab Results
12/07/23 04:01
ESR 70 mm/hour (0-20) H 12/05/23 14:50
Estimated Creat Clear 80 ml/min 12/07/23 04:01
Total Bilirubin 0.5 mg/dl (0.2-1.3) 12/05/23 14:50
AST 34 U/L (17-59) 12/05/23 14:50
ALT 17 U/L (0-50) 12/05/23 14:50
Alkaline Phosphatase 120 U/L (38-126) 12/05/23 14:50
C-Reactive Protein 118.40 mg/L (0.0-10.00) H 12/05/23 14:50
Most recent labs reviewed.
Micro Results:
12/05/23 14:50 Blood Culture - Preliminary
Blood/Venous No Growth in 48 hours- Final report to follow
12/06/23 20:55 Wound Culture - Pending
Hand - Left Gram Stain - Preliminary
12/05/23 18:03 MRSA Screen - Final
Nose No Methicillin Resistant Staphylococcus aureus isolated.
12/06/23 20:55 Anaerobic Culture - Pending
Wound-Deep
12/05/23 18:03 Blood Culture - Preliminary
Blood/Venous No Growth in 24 hours- Final report to follow
[2023-12-07 17:12] LABS: Hematocrit 28.8 % (39.0-52.0); Hemoglobin 9.3 g/dL (13.0-18.0); Mean Corp Hgb Conc. 32.3 g/dL (33.0-37.0); Mean Corpuscular Hgb 29.3 pg (27.0-31.0); Mean Corpuscular Volume 90.9 fL (80.0-94.0); Mean Platelet Volume 9.2 fL (7.4-10.4); Platelet Count 349 10^3/uL (130-400); Red Blood Cell Count 3.17 10^6/uL (4.70-6.10); Red Cell Dist. Width 14.6 % (11.5-14.5); White Blood Cell Count 12.3 10^3/uL (4.8-10.8)
[2023-12-07] MEDS: TRANEXAMIC ACID 100 IV (17:33)
[2023-12-07] MEDS: INVANZ 60 MG IV (19:38)
--- NOTE | 2023-12-07 19:43 | PTCARENOTE ---
Pt's dressing to L arm changed multiple times during shift due to bleeding from incision site. MD and ortho aware. Arm kept elevated, Pt denies pain/discomfort. Tranexamic Acid and labs ordered.
[2023-12-07] MEDS: ZOFRAN 4 MG IV (21:16)
[2023-12-07] MEDS: TORADOL 15 MG IV (21:21)
[2023-12-07] MEDS: TYLENOL PO (22:53)
[2023-12-08] MEDS: ZOFRAN 4 MG IV ×2 (04:49→11:09)
[2023-12-08] MEDS: EFFEXOR 75 MG PO ×2 (05:00→12:43)
[2023-12-08] MEDS: WELLBUTRIN REGULAR RELEASE 75 MG PO ×2 (05:00→12:43)
[2023-12-08 06:00] VITALS: BMI 32.0
[2023-12-08 07:00] VITALS: BP 97/67
[2023-12-08 08:05] LABS: Hematocrit 25.1 % (39.0-52.0); Hemoglobin 8.1 g/dL (13.0-18.0); Mean Corp Hgb Conc. 32.3 g/dL (33.0-37.0); Mean Platelet Volume 9.6 fL (7.4-10.4); Platelet Count 298 10^3/uL (130-400); Red Blood Cell Count 2.79 10^6/uL (4.70-6.10); Red Cell Dist. Width 14.6 % (11.5-14.5); White Blood Cell Count 10.6 10^3/uL (4.8-10.8)
[2023-12-08 08:29] LABS: Blood Urea Nitrogen 16 mg/dl (9-20); Calcium 8.1 mg/dl (8.4-10.2); Carbon Dioxide 27 mmol/L (22-30); Chloride 97 mmol/L (98-107); Estimated Creatinine Clearance 73 ml/min; Glucose 98 mg/dl (70-99); Potassium 3.9 mmol/L (3.5-5.1); Sodium 133 mmol/L (135-145); eGFR > 60.00
[2023-12-08] MEDS: LASIX PO (08:54)
[2023-12-08] MEDS: PACERONE 200 MG PO (08:55)
[2023-12-08] MEDS: LOPRESSOR PO (08:55)
[2023-12-08] MEDS: TYLENOL 1000 MG PO ×3 (08:56→20:47)
[2023-12-08] MEDS: FOLVITE 2 MG PO (08:56)
[2023-12-08] MEDS: PEPCID 20 MG PO (08:56)
--- NOTE | 2023-12-08 08:58 | PTCARENOTE ---
during morning medication pass this patient refused the prednisone and lasix for his 0800 dose. per parameters metoprolol was held this morning. pt bp was 97/67. See MAR for proper documentation
--- NOTE | 2023-12-08 09:47 | W.PN.ID1 ---
Date of Service
Date of Service: December 08, 2023
Today's Communication
Continue Ertapenem.
Assessment / Plan
Osteomyelitis L wrist due to Serratia and possibly MSSA
Osteomyelitis R wrist due to MSSA - resolving
- osteomyelitis R wrist - MSSA - for 6 weeks of vancomycin initially planned through 12/12/23
- osteomyelitis of the L wrist - Serratia (MSSA likely as well) - for ertapenem through 01/01/24
- follow OR cultures - pending
- appreciate orthopedics input
- Continue ertapenem (d2)
- s/p bactrim 1 DS tab BID (12/06 to 12/07) -> held while metformin
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
- awaiting skin biopsy
- Hep B/C serologies previously vaccinated for hep B, hep C negative
- Per Dr. Yeager: adverse drug reaction also a possible cause but would be very unusual for patient to react to so many diverse drug classes - likely its another cause. Note had previously attributed this rash to cefazolin, would be unusual to
also react to ertapenem, and levofloxacin. Ongoing infection also a possible cause - note that he has been on aggressive treatment prior to this visit
- appreciate rheum input
Chief Complaint
-: Other (rash, osteo)
Subjective / Review of Systems
at bedside.
Rash much improved.
Vital Signs / Physical Exam
Vital Signs
Vital Signs
Temp Pulse Resp BP Pulse Ox
98.1 F 82 18 97/67 97
12/08/23 07:00 12/08/23 07:00 12/08/23 07:00 12/08/23 08:55 12/08/23 07:00
Physical Exam
Constitutional: No Acute Distress and Comfortable
Cardiovascular: Regular Rate and S1/S2
Pulmonary: Clear
Gastrointestinal: Soft, Non Tender and Non Distended
Skin: Rash (Few scattered red purplish lesions on BLE. No rash on posterior torso or chest)
Neurological: AO x 3
Objective Data
Lab Data
Lab Results
12/08/23 06:59
12/08/23 06:59
ESR 70 mm/hour (0-20) H 12/05/23 14:50
Estimated Creat Clear 73 ml/min 12/08/23 06:59
Total Bilirubin 0.5 mg/dl (0.2-1.3) 12/05/23 14:50
AST 34 U/L (17-59) 12/05/23 14:50
ALT 17 U/L (0-50) 12/05/23 14:50
Alkaline Phosphatase 120 U/L (38-126) 12/05/23 14:50
C-Reactive Protein 118.40 mg/L (0.0-10.00) H 12/05/23 14:50
Most recent labs reviewed.
Micro Results:
12/05/23 18:03 Blood Culture - Preliminary
Blood/Venous No Growth in 48 hours- Final report to follow
12/05/23 14:50 Blood Culture - Preliminary
Blood/Venous No Growth in 48 hours- Final report to follow
12/06/23 20:55 Wound Culture - Pending
Hand - Left Gram Stain - Preliminary
12/05/23 18:03 MRSA Screen - Final
Nose No Methicillin Resistant Staphylococcus aureus isolated.
12/06/23 20:55 Anaerobic Culture - Pending
Wound-Deep
--- NOTE | 2023-12-08 13:12 | W.PN.UPDATE ---
Update Note
Progress Note Update
Bleeding has minimized
No acute vessel bleed but mainly oozing from raw bone surfaces
Once infection eradicated my plan is to fuse his wrist with ? tendon grafting
Continue present care/antibiotics
Will see as outpt after DC
Please contact me if any questions or concerns
Thanks
GGMD
[2023-12-08 15:00] VITALS: BP 108/57
--- NOTE | 2023-12-08 16:12 | W.PN.HOSP.TC ---
Today's Communication/Plan
-
Continue device Sunday
Possible resumption of Eliquis in 24 to 48 hours
Follow-up skin pathology report
Assessment / Plan
Assessment / Plan
1. Left wrist osteomyelitis
� � Left wrist cellulins and soft tissue infection
Acute blood loss anemia
-Patient have underwent I&D/washout of left wrist on 11/01 and 11/15 by orthopedic service
-Pathology was sampled from the OR showing osteomyelitis
-Patient has been maintained on IV vancomycin and Levaquin through PICC line in left arm, last dose 12/12/2023
-Left wrist erythematous/tender to touch with minimal wound dehiscence and moderate swelling.
-LUE US showing 2x0.7x1.7cm complex collection in dorsum of wrist suspicious of abscess
12/07 s/p I&D by ortho service on 12/06. Patient bumped hand into bed/something when getting back in bed, have bleeding from the incision site. discussed with orthopedic surgeon and who recommended continual a pressure bandage. Patient required
removal of extensor tendon and bone debridement causing a lot of oozing/bleeding underneath. -Patient continued to bleed through all day. Required to be given IV tranexamic acid 1 g infusion.
12/08 hemoglobin has dropped 8.1 today from blood loss from left arm yesterday. Pressure bandage in place and bleeding is stopped at this point. Continue monitoring.
-ID also recommend initially Bactrim therapy although after discussion about finding of IntraOp, patient has been transitioned to ertapenem.
2. Acute TME - improved
� � Hallucination episode
-Patient on multiple medication which can give encephalopathy.� This includes oxycodone/gabapentin/venlafaxine/bupropion/Levaquin
-Hold oxycodone and gabapentin, provide Tylenol/tordaol for pain control
-CT Head as showing some cerebral atrophy
3. Parox afib
-rate controlled.
-Possibly can be resumed back on Eliquis in next 24 hours if no further bleeding issue
4. IDDM
- maintain on ISS
5. Chronic diastolic CHF
- no signs of exacerbation, continue home dose lasix
6. Chronic back pain
-Toradol seems to help in the past, ordered
7. Nonblanching rash
-Involving both upper and lower extremity, very pronounced in lower extremity.
-No dermatology on-call today, general surgery did beside skin biopsy.
-Patient will need to be follow-up with dermatology outpatient basis for recurrent rash
-on oral prednisone 5mg/d, rheumatology requested dose given to 20 mg twice daily although patient and family adamantly against it.
history of severe RA with recurrent flare
Chronic steroid use
chronic pain and narcotic dependence
essential hypertension
hyperlipidemia
neuropathy
history of lumbar spinal surgery
h/o MSSA bacteremia
recent bilateral wrist septic arthritis
DVT PPX - scd
Full code
Anticipated Discharge: 24 - 48 hours
Subjective/Interval History
-
Date of Service: December 08, 2023
bleeding from left wrist has stopped
not reporting any pain/discomfort in arm
Objective Data
-
Labs:
Laboratory Results
12/08/23
06:59
WBC 10.6
Hgb 8.1 L
Hct 25.1 L
Plt Count 298
Sodium 133 L
Potassium 3.9
Chloride 97 L
Carbon Dioxide 27
BUN 16
Creatinine 1.2
Glucose 98
Calcium 8.1 L
Vital Signs:
Vital Signs
Temp Pulse Resp BP Pulse Ox
98.2 F 82 16 108/57 95
12/08/23 15:00 12/08/23 15:00 12/08/23 15:00 12/08/23 15:00 12/08/23 15:00
I&O
12/07/23 12/08/23 12/09/23
06:59 06:59 06:59
Intake Total 220 / 220 1300 / 1300
Output Total 250 / 250 200 / 200
Balance -30 / -30 1100 / 1100
Review of Systems
-
Respiratory: Reports No Symptoms
Cardiac: Reports No Symptoms
Abdomen/GI: Reports No Symptoms
Physical Exam
-
General: Negative Respiratory Distress or Appears in Distress
HEENT: Negative Oxygen
Musculoskeletal: Other (Left wrist pressure dressing in place)
Neuro: Awake, Oriented and No Motor Deficits
[2023-12-08] MEDS: MIRALAX 17 GRAMS PO (16:58)
[2023-12-08] MEDS: INVANZ 60 MG IV (17:00)
--- NOTE | 2023-12-08 17:31 | PTCARENOTE ---
hand re-wrapped by this nurse at 1700. large amount of sanguinous drainage assessed on dressing. hand wrapped and carter bandage placed. see worklist for charting. pt verbalized not having a bm since 12/05. miralax given to help with BM
[2023-12-08 19:05] VITALS: BP 115/71
[2023-12-08] MEDS: LOPRESSOR 50 MG PO (20:47)
[2023-12-08 23:45] VITALS: BP 98/64
[2023-12-09] VITALS (9 sets, daily range): BP systolic 96–133; BP diastolic 55–70
[2023-12-09] MEDS: TORADOL 15 MG IV ×2 (04:03→21:33)
[2023-12-09] MEDS: WELLBUTRIN REGULAR RELEASE 75 MG PO ×2 (05:17→13:38)
[2023-12-09] MEDS: EFFEXOR 75 MG PO ×2 (05:17→13:38)
[2023-12-09 08:35] LABS: Hematocrit 23.3 % (39.0-52.0); Hemoglobin 7.3 g/dL (13.0-18.0); Mean Corp Hgb Conc. 31.3 g/dL (33.0-37.0); Mean Corpuscular Hgb 28.7 pg (27.0-31.0); Mean Corpuscular Volume 91.7 fL (80.0-94.0); Mean Platelet Volume 9.5 fL (7.4-10.4); Platelet Count 267 10^3/uL (130-400); Red Blood Cell Count 2.54 10^6/uL (4.70-6.10); Red Cell Dist. Width 14.6 % (11.5-14.5); White Blood Cell Count 9.2 10^3/uL (4.8-10.8)
[2023-12-09] MEDS: TYLENOL 1000 MG PO ×2 (08:56→20:31)
[2023-12-09] MEDS: LASIX PO (08:56)
[2023-12-09] MEDS: PEPCID 20 MG PO (08:57)
[2023-12-09] MEDS: PACERONE 200 MG PO (08:57)
[2023-12-09] MEDS: MIRALAX 17 GRAMS PO (08:57)
[2023-12-09] MEDS: FOLVITE 2 MG PO (08:57)
[2023-12-09] MEDS: LOPRESSOR 50 MG PO ×2 (08:57→20:32)
[2023-12-09 09:00] LABS: Blood Urea Nitrogen 14 mg/dl (9-20); Calcium 7.9 mg/dl (8.4-10.2); Carbon Dioxide 29 mmol/L (22-30); Chloride 99 mmol/L (98-107); Estimated Creatinine Clearance 79 ml/min; Glucose 102 mg/dl (70-99); Sodium 131 mmol/L (135-145); eGFR > 60.00
--- NOTE | 2023-12-09 10:00 | W.PN.ID1 ---
Date of Service
Date of Service: December 09, 2023
Today's Communication
Continue ertapenem.
Assessment / Plan
Osteomyelitis L wrist due to Serratia and possibly MSSA
Osteomyelitis R wrist due to MSSA - resolving
- osteomyelitis R wrist - MSSA - for 6 weeks of vancomycin initially planned through 12/12/23
- osteomyelitis of the L wrist - Serratia (MSSA likely as well) - for ertapenem through 01/01/24
- follow OR cultures - neg to date
- appreciate orthopedics input
- Continue ertapenem (d3)
- s/p bactrim 1 DS tab BID (12/06 to 12/07) -> held while metformin
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
- awaiting skin biopsy
- Hep B/C serologies previously vaccinated for hep B, hep C negative
- Per Dr. Yeager: adverse drug reaction also a possible cause but would be very unusual for patient to react to so many diverse drug classes - likely its another cause. Note had previously attributed this rash to cefazolin, would be unusual to
also react to ertapenem, and levofloxacin. Ongoing infection also a possible cause - note that he has been on aggressive treatment prior to this visit
- appreciate rheum input
Chief Complaint
-: Other (rash, osteo)
Subjective / Review of Systems
Rash continues to improve.
Vital Signs / Physical Exam
Vital Signs
Vital Signs
Temp Pulse Resp BP Pulse Ox
97.9 F 78 20 108/66 96
12/09/23 08:00 12/09/23 08:00 12/09/23 08:00 12/09/23 08:57 12/09/23 08:00
Physical Exam
Constitutional: No Acute Distress
Cardiovascular: Regular Rate and S1/S2
Pulmonary: Clear
Gastrointestinal: Soft, Non Tender and Non Distended
Skin: Rash (Resolving rash LE)
Neurological: AO x 3
Objective Data
Lab Data
Lab Results
12/09/23 07:31
12/09/23 07:31
ESR 70 mm/hour (0-20) H 12/05/23 14:50
Estimated Creat Clear 79 ml/min 12/09/23 07:31
Total Bilirubin 0.5 mg/dl (0.2-1.3) 12/05/23 14:50
AST 34 U/L (17-59) 12/05/23 14:50
ALT 17 U/L (0-50) 12/05/23 14:50
Alkaline Phosphatase 120 U/L (38-126) 12/05/23 14:50
C-Reactive Protein 118.40 mg/L (0.0-10.00) H 12/05/23 14:50
Most recent labs reviewed.
Micro Results:
12/05/23 18:03 Blood Culture - Preliminary
Blood/Venous No Growth in 72 hours- Final report to follow
12/05/23 14:50 Blood Culture - Preliminary
Blood/Venous No Growth in 72 hours- Final report to follow
12/06/23 20:55 Wound Culture - Preliminary
Hand - Left No growth
Gram Stain - Preliminary
12/06/23 20:55 Anaerobic Culture - Preliminary
Wound-Deep Culture pending. Anaerobic cultures are examined after 3
days incubation. Additional information to follow.
12/05/23 18:03 MRSA Screen - Final
Nose No Methicillin Resistant Staphylococcus aureus isolated.
--- NOTE | 2023-12-09 10:17 | PTCARENOTE ---
pt hgb dropped from 8.1 to 7.3 pt ordered blood but refused transfusion when MD made morning rounds. pt to receive IV iron this afternoon in place of blood. pt verbalizing nauseousness, prn zofran given. see MAR
[2023-12-09] MEDS: ZOFRAN 4 MG IV ×2 (10:21→17:11)
--- NOTE | 2023-12-09 13:00 | W.PN.HOSP.TC ---
Addendum entered and electronically signed by Jack Shaw MD 12/09/23 17:59:
Wound dehiscence causing bleeding at left wrist
1 more prbc ordered
urgent check for pt/inr/cbc ordered
orthopedic sercice notified
Original Note:
Today's Communication/Plan
-
1 u prbc ordered
abx per ID
resuming eliquis
Assessment / Plan
Assessment / Plan
1. Left wrist osteomyelitis
� � Left wrist cellulins and soft tissue infection
Acute blood loss anemia
-Patient have underwent I&D/washout of left wrist on 11/01 and 11/15 by orthopedic service
-Pathology was sampled from the OR showing osteomyelitis
-Maintained on IV vancomycin and Levaquin through PICC line in left arm, last dose 12/12/2023
-Left wrist erythematous/tender to touch with minimal wound dehiscence and moderate swelling.
-LUE US showing 2x0.7x1.7cm complex collection in dorsum of wrist suspicious of abscess
12/07 s/p I&D by ortho service on 12/06. Patient bumped hand into bed/something when getting back in bed, have bleeding from the incision site. discussed with orthopedic surgeon and who recommended continual a pressure bandage. Patient required
removal of extensor tendon and bone debridement causing a lot
oozing/bleeding underneath. -Patient continued to bleed through all day. Required to be given IV tranexamic acid 1 g infusion.
12/08 hemoglobin has dropped 8.1 today from blood loss from left arm yesterday. Pressure bandage in place and bleeding is stopped at this point. Continue monitoring. ID also recommend initially Bactrim therapy although after discussion about
finding of IntraOp, patient has been transitioned to ertapenem.
12/09 Hbg 7.3, giving 1 u prbc, blood consent obtained.
2. Acute TME - improved
� � Hallucination episode
-Patient on multiple medication which can give encephalopathy.� This includes oxycodone/gabapentin/venlafaxine/bupropion/Levaquin
-Hold oxycodone and gabapentin, provide Tylenol/tordaol for pain control
-CT Head as showing some cerebral atrophy
3. Paroxysmal afib
-rate controlled.
-resume eliquis
4. IDDM
- maintain on ISS
5. Chronic diastolic CHF
- no signs of exacerbation, continue home dose lasix
6. Chronic back pain
-Toradol seems to help in the past, ordered
7. Nonblanching rash - Improving
-Involving both upper and lower extremity, very pronounced in lower extremity.
-No dermatology on-call today, general surgery did beside skin biopsy.
-Patient will need to be follow-up with dermatology outpatient basis for recurrent rash
-on oral prednisone 5mg/d, rheumatology requested dose given to 20 mg twice daily although patient and family adamantly against it.
8. Hyponatremia
-new drift down, fluid restriction
history of severe RA with recurrent flare
Chronic steroid use
chronic pain and narcotic dependence
essential hypertension
hyperlipidemia
neuropathy
history of lumbar spinal surgery
h/o MSSA bacteremia
recent bilateral wrist septic arthritis
DVT PPX - scd
Full code
Anticipated Discharge: 24 - 48 hours
Subjective/Interval History
-
Date of Service: December 09, 2023
Afebrile overnight
No excessive pain in LUE
no dizziness/chest pain/sob
Objective Data
-
Labs:
Laboratory Results
12/09/23
07:31
WBC 9.2
Hgb 7.3 L
Hct 23.3 L
Plt Count 267
Sodium 131 L
Potassium 4.0
Chloride 99
Carbon Dioxide 29
BUN 14
Creatinine 1.1
Glucose 102 H
Calcium 7.9 L
Vital Signs:
Vital Signs
Temp Pulse Resp BP Pulse Ox
97.9 F 78 20 108/66 96
12/09/23 08:00 12/09/23 08:00 12/09/23 08:00 12/09/23 08:57 12/09/23 12:12
I&O
12/08/23 12/09/23 12/10/23
06:59 06:59 06:59
Intake Total 1300 / 1300 420 / 420
Output Total 200 / 200 375 / 375
Balance 1100 / 1100 45 / 45
Review of Systems
-
Respiratory: Reports No Symptoms
Cardiac: Reports No Symptoms
Abdomen/GI: Reports No Symptoms
Physical Exam
-
General: Negative Respiratory Distress or Appears in Distress
HEENT: Negative Oxygen
Musculoskeletal: Other (Left wrist pressure dressing in place)
Neuro: Awake, Oriented and No Motor Deficits
[2023-12-09] MEDS: FERRLECIT IV (13:38)
--- NOTE | 2023-12-09 14:29 | PTCARENOTE ---
Addendum entered by Maria Del Carmen Wood RN 12/09/23 17:58:
L wrist site looks like it opened a little more since yesterday. patient having copious amount of blood output from site at 1540. MD and surgeon made aware. H&H as well as coags were ordered to be drawn. site rewrapped after another episode of
blood output at 1740. MD ordered another unit of PRBC to be administered. waiting for TAR availability
Addendum entered by Maria Del Carmen Wood RN 12/09/23 14:31:
blood consent in physical patient chart.
Original Note:
1 unit of O positive blood hung by this nurse this afternoon. pt hgb declined from 8.1 to 7.3. See TAR for documentation. pt initially refused blood transfusion for and then changed his mind. IV iron held this afternoon per MD approval. See MAR.
[2023-12-09] MEDS: TYLENOL PO (15:55)
--- NOTE | 2023-12-09 16:09 | W.PN.UPDATE ---
Update Note
Progress Note Update
Notified by nursing staff of wound dehiscence Left wrist
Dressed with NS & Betadine gauze
Will return to OR for repeat washout and closure tomorrow
thanks
GGMD
[2023-12-09] MEDS: INVANZ 60 MG IV (17:11)
[2023-12-09 18:11] LABS: Hematocrit 25.2 % (39.0-52.0)
[2023-12-09 18:22] LABS: INR 1.13; PT 14.7 Sec (11.4-14.6)
[2023-12-09 18:23] LABS: APTT 48.2 Sec (23.4-35.0)
--- NOTE | 2023-12-09 19:41 | W.PN.UPDATE ---
Update Note
Progress Note Update
Called to evaluate patient at bedside. Patient had atraumatic profuse bleeding from left dorsal wrist incision earlier today that required dressing change. Wound was evaluated and there is complete dehiscence of the surgical incision. There is no
active drainage or bleeding on examination this evening. Dressing was changed to include 4 x 4 gauze, ABD Kerlix and Frantz. Did discuss with Dr. Carbajal who has plans for return to OR tomorrow for repeat wound irrigation debridement and closure.
N.p.o. at midnight
Plan for OR tomorrow for repeat irrigation debridement closure.
Dressing change as needed overnight.
Please reach out with any questions or concerns
[2023-12-09 23:24] LABS: Hematocrit 25.8 % (39.0-52.0); Hemoglobin 8.7 g/dL (13.0-18.0)
[2023-12-10] VITALS (13 sets, daily range): BP systolic 95–129; BP diastolic 54–74; BMI 31.8
--- NOTE | 2023-12-10 02:51 | PTCARENOTE ---
Pt received 2nd URBC. pt tolerated blood transfusion. No adverse reaction noted.
[2023-12-10] MEDS: EFFEXOR 75 MG PO ×2 (06:08→12:22)
[2023-12-10] MEDS: WELLBUTRIN REGULAR RELEASE 75 MG PO ×2 (06:08→12:22)
[2023-12-10] MEDS: TORADOL 15 MG IV ×2 (06:14→19:14)
[2023-12-10] MEDS: ZOFRAN 4 MG IV (06:14)
[2023-12-10 06:33] LABS: Hematocrit 27.5 % (39.0-52.0); Mean Corp Hgb Conc. 32.7 g/dL (33.0-37.0); Mean Corpuscular Hgb 29.1 pg (27.0-31.0); Mean Platelet Volume 9.2 fL (7.4-10.4); Platelet Count 312 10^3/uL (130-400); Red Blood Cell Count 3.09 10^6/uL (4.70-6.10); Red Cell Dist. Width 14.6 % (11.5-14.5)
[2023-12-10 07:09] LABS: Blood Urea Nitrogen 15 mg/dl (9-20); Calcium 8.4 mg/dl (8.4-10.2); Carbon Dioxide 30 mmol/L (22-30); Chloride 98 mmol/L (98-107); Estimated Creatinine Clearance 79 ml/min; Glucose 92 mg/dl (70-99); Potassium 4.4 mmol/L (3.5-5.1); Sodium 134 mmol/L (135-145); eGFR > 60.00
[2023-12-10] MEDS: LOPRESSOR 50 MG PO ×2 (09:22→19:17)
[2023-12-10] MEDS: PACERONE 200 MG PO (09:22)
[2023-12-10] MEDS: FOLVITE 2 MG PO (09:22)
[2023-12-10] MEDS: LASIX PO ×2 (09:22→09:26)
[2023-12-10] MEDS: PEPCID 20 MG PO (09:22)
[2023-12-10] MEDS: TYLENOL 1000 MG PO ×3 (09:22→21:16)
[2023-12-10] MEDS: MIRALAX PO (09:23)
--- NOTE | 2023-12-10 12:13 | W.PN.HOSP.TC ---
Today's Communication/Plan
-
NPO for now, clear liquids after the surgery.
Stop Eliquis
Continue antibiotics
Continue pain medications.
Monitor CBC, and blood glucose regularly.
Assessment / Plan
Assessment / Plan
Assessment -
A 63 yo M with a PMHx of CHF, RA with recurrent flares, paroxysmal Afib on eliquis, chronic pain with opioid dependance, HTN, HLD, and neuropathy admitted to the floor for toxic metabolic encephalopathy secondary to left wrist osteomyelitis.
Plan -
Left wrist osteomyelitis
�left wrist cellulitis and osteomyelitis -orthopedics and ID.
started as cellulitis on 10/04 in b/l wrists, 10/16 - right wrist I&D, cefazolin for left wrist - patient missed IV infusion appointments.
Underwent I&D of left wrist on 11/01 and 11/15 - orthopedics, sampled bone biopsy was evident for osteomyelitis, and I&D for Serratia.
Inadequate response on IV vancomycin and levaquin through PICC line in left arm, last dose 12/12/2023.
upon admission on 12/05, erythematous moderately edematous fluctuant swelling of the left wrist with minimal wound dehiscence noted.
12/05 - LUE USG findings positive for 2x0.7x1.7cm complex collection in dorsum of wrist suspicious of abscess.
12/07 s/p I&D by ortho service on 12/06. Patient required extensive removal of extensor tendon and bone debridement causing extensive oozing and bleeding. Controlled with IV Tranexamic acid and pressure dressing.
12/08 hemoglobin has dropped 8.1. bleeding stopped. Initial Bactrim therapy changed to Ertapenem after intraoperative findings.
12/09 Hbg 7.3.Had complete wound dehiscence at the surgical site in the afternoon with profuse bleeding. pressure dressing changed and repeat wound washout, debridement and closure planned 12/10.
12/10 - patient reports no pain, pressure or oozing. Pressure dressing clean and in place, will be shifted to OR for wound debridement. Continue
Acute Anemia from blood loss -
12/08 - Hb - 8.3 to 12/09 - hb - 7.3, Received 1 unit of PRBC transfusion.
12/10 - Hb - 9. Low MCHC and high RDW.
Currently on ferrous gluconate.
tongue findings - likely secondary to anemia/ vitamin deficiency.
Toxic Metabolic encephalopathy - resolved
Hallucinations on 12/05 - resolved.
Not taking gabapentin and oxycodone(held for now).
CT head - 12/07 - mild diffuse cerebellar and cortical atrophy.
Other medications - venlafaxine and bupropion can also cause altered mental status.
Non - Blanching erythematous macular rash -
LE>UE, Skin biopsy done by surgery.
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 follow up - outpatient dermatology.
On oral prednisone mg/day.
CHF and Paroxysml A fib -
On lasix, no symptoms for exacerbation. continue home dose.
Rate controlled on metoprolol.
Eliquis discontinued yesterday in view of planned wound debridement today.
IDDM -
on sliding scale insulin. continue monitoring POC glucose and ISS.
Chronic Back pain -
Opioids discontinued. given MME - 6.67, withdrawal less likely.
Monitor for withdrawal symptoms.
Currently on Toradol and acitamenophen for pain.
Hyponatremia -
Na 131(12/09) - 134(12/10)
Continue fluid restriction.
DVT prophylaxis -
Not a candidate for medical prophylaxis given surgical wound debridement context.
sequential compression device.
Other stable medical conditions -
Chronic steroid use
Chronic pain and opioid dependance
neuropathy
Hyperlipidemia
MSSA bacteremia 10/04/2023
Anticipated Discharge: > 48 hours
Subjective/Interval History
-
Date of Service: December 10, 2023
patient reports that his sutures ruptured in the noon and had an acute episode of bleeding from the surgical wound site. (Wound dehiscence)
Patient is scheduled for wound debridement and closure today.
Patient complains of small raised papular lesions on the tongue today. These lesions are present for last few months, intermittent, no aggravating or relieving factors. Patient reports no associated pain or difficulty swallowing.
Patient reports improvement in the non blanching macular rash on upper and lower extremities.
Denies pain or discomfort in the left arm.
Denies fever, chills, appetite changes.
Denies chest pain, SOB, palpitations, bowel or bladder movement changes.
Objective Data
-
Labs:
Laboratory Results
12/10/23
05:55
WBC 10.0
Hgb 9.0 L
Hct 27.5 L
Plt Count 312
Sodium 134 L
Potassium 4.4
Chloride 98
Carbon Dioxide 30
BUN 15
Creatinine 1.1
Glucose 92
Calcium 8.4
Vital Signs:
Vital Signs
Temp Pulse Resp BP Pulse Ox
97.9 F 67 16 102/63 95
12/10/23 07:40 12/10/23 09:22 12/10/23 07:40 12/10/23 09:22 12/10/23 10:37
I&O
12/09/23 12/10/23 12/11/23
06:59 06:59 06:59
Intake Total 420 / 420 2180 / 2180
Output Total 375 / 375 300 / 300
Balance 45 / 45 1880 / 1880
Review of Systems
-
History Source: Patient
Constitutional: Reports No Symptoms and Other (raised bumps on the tongue)
Respiratory: Reports No Symptoms
Cardiac: Reports No Symptoms
Abdomen/GI: Reports No Symptoms
Genitourinary: Reports No Symptoms
Musculoskeletal: Reports No Symptoms
Skin: Reports No Symptoms
Neuro: Reports No Symptoms
Endocrine: Reports No Symptoms
Hematologic / Lymphatic: Reports No Symptoms
Allergy / Immunology: Reports No Symptoms
Physical Exam
-
General: No Apparent Distress and Comfortable
HEENT: Normocephalic, Atraumatic, Moist Mucous Membranes and Other (erythematous tongue with raised papular lesions noted.)
Respiratory: Clear to Auscultation and Other (No wheezes, rales, ronchi)
Cardiac: Regular Rhythm, S1/S2 and Other (no murmur, rubs and gallops)
GI: Soft, Nontender, Nondistended and Normal Bowel Sounds
Musculoskeletal: Other (Left wrist dressing in place. No bleeding from pressure dressing noted today. )
Neuro: AO x 3
[2023-12-10] MEDS: FERRLECIT 110 MG IV (13:16)
--- NOTE | 2023-12-10 14:09 | CM ---
Reviewed the chart notes and spoke with the patient and his spouse at the bedside. The patient is waiting to go to OR today for repeat wound irrigation debridement and closure. Patient will need to be evaluated by PT/OT for discharge planning
purposes. CM continues to be available to patient/family and is monitoring medical plan for needs at discharge.
Plan: Discharge plans will depend on the patient's progress.
--- NOTE | 2023-12-10 14:17 | W.PN.HOSP.TC ---
Today's Communication/Plan
-
IV antibiotics.
Pending wound revision today.
Hold Eliquis.
Assessment / Plan
Assessment / Plan
Impression:
A 63 yo M with a PMHx of CHF, RA with recurrent flares, paroxysmal Afib on eliquis, chronic pain with opioid dependance, HTN, HLD, and neuropathy admitted to the floor for toxic metabolic encephalopathy secondary to left wrist osteomyelitis.
Left wrist osteomyelitis.
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
Toxic metabolic encephalopathy improved
Hyponatremia
Conditions prior to admission:
MSSA bacteremia with bilateral wrist septic arthropathy
Paroxysmal atrial fibrillation.
Anticoagulation with Eliquis.
IDDM.
Chronic diastolic CHF.
Chronic back pain and narcotic dependence.
Rheumatoid arthritis, immunosuppressed on Remicade last infusion September 2023
Essential hypertension.
Dyslipidemia
Neuropathy.
Plan -
Left wrist osteomyelitis
Status post multiple wound debridement
Completed course of vancomycin for MSSA.
Latest left wrist wound culture with Serratia. Antibiotics consolidated to ertapenem as per ID
Left wrist wound dehiscence with bleeding
Holding Eliquis
Plan is for wound revision on 12/10.
Acute Anemia from blood loss -
12/08 - Hb - 8.3 to 12/09 - hb - 7.3, Received 1 unit of PRBC transfusion.
12/10 - Hb - 9. Low MCHC and high RDW.
Currently on ferrous gluconate.
tongue findings - likely secondary to anemia/ vitamin deficiency.
Toxic Metabolic encephalopathy - resolved
Hallucinations on 12/05 - resolved.
Not taking gabapentin and oxycodone(held for now).
CT head - 12/07 - mild diffuse cerebellar and cortical atrophy.
Other medications - venlafaxine and bupropion can also cause altered mental status.
Non - Blanching erythematous macular rash -
LE>UE, Skin biopsy done by surgery.
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 follow up - outpatient dermatology.
Rash improved
Steroids initially weaned off to prednisone 5 mg daily, patient declined further treatment. Prednisone has been discontinued on 12/10.
CHF and Paroxysml A fib -
On lasix as needed STONE BELT SANDER. No symptoms for exacerbation. continue home dose.
Rate controlled on metoprolol.
IDDM -
on sliding scale insulin. continue monitoring POC glucose and ISS.
Chronic Back pain -narcotic dependence.
On opiates prior to admission
6. Chronic back pain
-Toradol seems to help in the past, ordered
8. Hyponatremia
-new drift down, fluid restriction
history of severe RA with recurrent flare
On Remicade STONE BELT SANDER last infusion September 2023
DVT PPX - scd
Full code
Anticipated Discharge: > 48 hours
Subjective/Interval History
-
Date of Service: December 10, 2023
Objective Data
-
Labs:
Laboratory Results
12/10/23
05:55
WBC 10.0
Hgb 9.0 L
Hct 27.5 L
Plt Count 312
Sodium 134 L
Potassium 4.4
Chloride 98
Carbon Dioxide 30
BUN 15
Creatinine 1.1
Glucose 92
Calcium 8.4
Vital Signs:
Vital Signs
Temp Pulse Resp BP Pulse Ox
97.9 F 67 16 102/63 95
12/10/23 07:40 12/10/23 09:22 12/10/23 07:40 12/10/23 09:22 12/10/23 10:37
I&O
12/09/23 12/10/23 12/11/23
06:59 06:59 06:59
Intake Total 420 / 420 2180 / 2180
Output Total 375 / 375 300 / 300
Balance 45 / 45 1880 / 1879
Physical Exam
-
General: Well Developed and No Apparent Distress
HEENT: Normocephalic, Atraumatic and Moist Mucous Membranes
Respiratory: Clear to Auscultation
Cardiac: Regular Rhythm and S1/S2; Negative Murmur, Rub or Gallop
GI: Soft, Nontender, Nondistended and Normal Bowel Sounds; Negative Organomegaly
Rectal: Deferred by Provider
Musculoskeletal: No Clubbing, No Cyanosis and No Edema
Skin: Negative Rash
Neuro: Nonfocal/Grossly Intact
--- NOTE | 2023-12-10 14:41 | W.PN.ID1 ---
Date of Service
Date of Service: December 10, 2023
Today's Communication
continue ertapenem
Assessment / Plan
Osteomyelitis L wrist due to Serratia and possibly MSSA
Osteomyelitis R wrist due to MSSA - resolving
- osteomyelitis R wrist - MSSA
- osteomyelitis of the L wrist - Serratia (MSSA likely as well)
- follow 12/06 OR cultures - neg to date
- appreciate orthopedics input
- Continue ertapenem duration pending course
- s/p bactrim 1 DS tab BID (12/06 to 12/07) -> held while metformin
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
- awaiting skin biopsy
- best assessment at this time is that rash was due to ongoing infection given resolution with washout and restarting previous antibiotics (ertapenem)
Chief Complaint
-: Other (rash, osteo)
Subjective / Review of Systems
afebrile
bp stable
without leukocytosis cr stable
eval by surgery earlier yesterday: complete dehiscence; there is plan to return to the OR tomorrow
steroids stopped by rheum/primary
Vital Signs / Physical Exam
Vital Signs
Vital Signs
Temp Pulse Resp BP Pulse Ox
97.9 F 67 16 102/63 95
12/10/23 07:40 12/10/23 09:22 12/10/23 07:40 12/10/23 09:22 12/10/23 10:37
Physical Exam
Constitutional: No Acute Distress
Cardiovascular: Regular Rate and S1/S2; Negative Murmur or Rub
Pulmonary: Clear and Symmetric; Negative Wheezes or Rales
Gastrointestinal: Soft, Non Tender, Non Distended and Normal Bowel Sounds
Skin: Warm and Dry; Negative Rash (previous rash has resolved) or Jaundice
Objective Data
Lab Data
Lab Results
12/10/23 05:55
12/10/23 05:55
ESR 70 mm/hour (0-20) H 12/05/23 14:50
PT 14.7 Sec (11.4-14.6) H 12/09/23 18:05
INR 1.13 12/09/23 18:05
APTT 48.2 Sec (23.4-35.0) H 12/09/23 18:05
Estimated Creat Clear 79 ml/min 12/10/23 05:55
Total Bilirubin 0.5 mg/dl (0.2-1.3) 12/05/23 14:50
AST 34 U/L (17-59) 12/05/23 14:50
ALT 17 U/L (0-50) 12/05/23 14:50
Alkaline Phosphatase 120 U/L (38-126) 12/05/23 14:50
C-Reactive Protein 118.40 mg/L (0.0-10.00) H 12/05/23 14:50
Most recent labs reviewed.
Micro Results:
12/06/23 20:55 Anaerobic Culture - Preliminary
Wound-Deep NO ANAEROBES ISOLATED
12/06/23 20:55 Wound Culture - Preliminary
Hand - Left No growth
Gram Stain - Preliminary
12/05/23 18:03 Blood Culture - Preliminary
Blood/Venous No Growth in 4 days- Final report to follow
12/05/23 14:50 Blood Culture - Preliminary
Blood/Venous No Growth in 4 days- Final report to follow
12/05/23 18:03 MRSA Screen - Final
Nose No Methicillin Resistant Staphylococcus aureus isolated.
[2023-12-10 15:19] LABS: Urine Albumin Trace (Neg - Trace); Urine Bilirubin 1+ (Negative); Urine Character Clear (Clear); Urine Color Yellow; Urine Glucose Negative (Negative); Urine Ketone Negative (Negative); Urine Leukocyte Trace (Negative); Urine Nitrite Negative (Negative); Urine Occult Blood 4+ (Negative); Urine Specific Gravity 1.025 (<1.030); Urine Urobilinogen Negative (Neg - 1+)
[2023-12-10 15:33] LABS: Complement C3 97 mg/dl (88-165)
[2023-12-10 15:57] LABS: Protein/creatinine Ratio 0.1; Urine Protein 11 mg/dl
[2023-12-10 16:03] LABS: Urine Hyaline Cast 0-2 /LPF (0-2); Urine Mucus Few
[2023-12-10 16:04] LABS: Urine Bacteria Moderate (Negative)
[2023-12-10] MEDS: INVANZ 60 MG IV (18:01)
--- NOTE | 2023-12-10 18:03 | OR.RPT ---
Operative Report
Operative Report
Surgeon: MIKEL Disla MD
Preoperative diagnosis: Left dorsal hand wound
Postoperative diagnosis: Same
Procedure: Negative pressure VAC application 10 x 5 cm, left dorsal wrist
Remainder per Dr. Carbajal
Complications: None
Indications for procedure: Patient is 63-year-old male with a complicated history of rheumatoid arthritis complicated by osteomyelitis requiring multiple debridements of the left dorsal wrist. Dr. Carbajal consult to plastic surgery for an operative
consultation during repeat debridement following wound dehiscence.
Procedure details: Dr. Carbajal started the case and his operative report will be dictated separately. When I entered the case the debridement had been completed and the wound was evaluated for hemostasis. On exam there was a large soft tissue
deficit over the left dorsal forearm. The extensor tendon mechanism was missing. Bony debridement included the proximal metacarpals, the carpal bones, as well as the distal radius and ulna. There is no arterial bleeding present. A wound VAC was
applied.
Plans to be made for discussion of future reconstruction options
All counts were correct at the end the case.
[2023-12-10 18:32] LABS: Glucose - Point of Care 102 mg/dl (70-99)
--- NOTE | 2023-12-10 18:50 | PTCARENOTE ---
Received patient into room 2133 after L wrist repeat washout and closure. Patient's VSS, L wrist dressing clean/dry/intact, wound vac in place with 125 mmHg continuous suction draining serosanguineous drainage. Patient states L wrist pain rated
9/10, IV toradol given. Dinner at bedside for patient, patient states no other complaints at this time.
[2023-12-11] MEDS: ULTRAM 50 MG PO (01:07)
[2023-12-11 03:38] VITALS: BP 110/59
[2023-12-11 06:00] VITALS: BMI 31.6
[2023-12-11 06:12] LABS: Hematocrit 27.1 % (39.0-52.0); Hemoglobin 8.8 g/dL (13.0-18.0); Mean Corp Hgb Conc. 32.5 g/dL (33.0-37.0); Mean Corpuscular Volume 89.4 fL (80.0-94.0); Mean Platelet Volume 9.2 fL (7.4-10.4); Platelet Count 348 10^3/uL (130-400); Red Blood Cell Count 3.03 10^6/uL (4.70-6.10); Red Cell Dist. Width 14.4 % (11.5-14.5)
[2023-12-11] MEDS: WELLBUTRIN REGULAR RELEASE 75 MG PO ×2 (06:14→12:41)
[2023-12-11] MEDS: EFFEXOR 75 MG PO ×2 (06:14→12:41)
[2023-12-11 06:43] LABS: Blood Urea Nitrogen 16 mg/dl (9-20); Carbon Dioxide 28 mmol/L (22-30); Chloride 101 mmol/L (98-107); Estimated Creatinine Clearance 79 ml/min; Glucose 163 mg/dl (70-99); Potassium 4.8 mmol/L (3.5-5.1); Sodium 132 mmol/L (135-145); eGFR > 60.00
[2023-12-11 07:40] VITALS: BP 115/65
[2023-12-11] MEDS: FOLVITE 2 MG PO (08:32)
[2023-12-11] MEDS: LASIX PO (08:33)
[2023-12-11] MEDS: PEPCID 20 MG PO (08:34)
[2023-12-11] MEDS: TYLENOL 1000 MG PO ×3 (08:34→22:05)
[2023-12-11] MEDS: MIRALAX 17 GRAMS PO (08:34)
[2023-12-11] MEDS: LOPRESSOR 50 MG PO ×2 (08:34→20:07)
[2023-12-11] MEDS: PACERONE 200 MG PO (08:35)
--- NOTE | 2023-12-11 09:43 | PN.CDI ---
CDI
- -
CDI:
Physician Documentation Request
Admit Date: 12/05/23 14:05
Dear Doctor Solomon,
Please review the following and provide your response in the progress notes.
Clinical Indicators:
- 12/06 Operation Report indicates debridement without further specificity of type
- 'Debridement of soft tissue and bone'
- 'the infected appearing tendons were debrided and it was necessary to perform bony debridement as well'
Could you provide, in the progress notes further clarification regarding the debridement.
Please specify the type of debridement performed:
1. Excisional Debridement - defined as removal by excision of devitalized tissue, necrosis or slough
2. Non-excisional debridement - defined as removal of devitalized tissue, necrosis or slough by such methods as irrigation, brushing, scrubbing or washing.
Use of terms such as suspected, likely, concern for, or probable (associated with a specific diagnosis that is being evaluated, monitored, or treated as if it exists) are acceptable and can be coded in the inpatient setting, when documented at the
time of discharge.
Thank you,
Annette Yin RN
CDI Specialist
Please use your independent medical judgment in providing your response.
[2023-12-11 11:35] VITALS: BP 113/68
--- NOTE | 2023-12-11 12:34 | CON.RHM ---
Addendum entered and electronically signed by Ryder Wu MD 12/11/23 13:23:
I have seen the patient with Romi Gilbert PA-C and I agree with her A/P with the following additions:
Doing well s/p I&D. Now with complete resolution of LCV rash. Low suspicion that this is RA vasculitis. UA notable for blood (kern?). Labs pending. Reasonable to assume LCV could be related to uncontrolled infection. Pain is controlled. Reasonable
to hold off on pred for his RA.
He will make an appointment to see me after he has completed antibiotics. We will reassess his inflammatory arthritis then.
Rheumatology will sign off. Please call with questions or if his labs come back abnormal.
Ryder Wu MD, [facility]
[phone]
Original Note:
Assessment/Plan
-
Pt rash has resolved
Workup still pending.
Continue ertapenem from ID
Will sign off
History of Present Illness
-
Pt has longstanding hx RA, recovering from multiple I&D' s of left wrist.
Over weekend pt notes his rash began to resolve. Currently feeling well aside of LUE discomfort
Review of Systems
-
Connective Tissue: Rash: No and Joint Pain: Yes
Data Reviewed
Patient Allergies
Allergy/AdvReac Type Severity Reaction Status Date / Time
grass pollen Allergy Itchy Verified 12/05/23 12:30
eyes,
headaches
house dust Allergy nose gets Verified 12/05/23 12:30
stuffed
up/sinus
problems
mold Allergy nose gets Verified 12/05/23 12:30
stuffed
up/sinus
problems
Physical Exam
-
Constitutional: Alert and Oriented
Skin: Rash (No rash ) and Other (Dressing and wound vac at left wrist )
HEENT: Normal Pupils
Psych: Appropriate Behavior
[2023-12-11] MEDS: FERRLECIT 110 MG IV (14:40)
--- NOTE | 2023-12-11 14:53 | CM ---
Reviewed the chart notes. Per ortho, for wound vac placement and eventual possible flap to the area. CM continues to be available to patient/family and is monitoring medical plan for needs at discharge.
Plan: Discharge plans will depend on the patient's progress.
--- NOTE | 2023-12-11 15:08 | W.PN.HOSP.TC ---
Addendum entered and electronically signed by Efrain Dutton MD 12/11/23 16:41:
Patient seen and examined
Discussed with resident
Impression:
Left wrist osteomyelitis with subsequent wound dehiscence
Status post washout and wound VAC placement on 12/10.
Continue IV antibiotics per
Continue wound VAC.
Hold Eliquis until cleared by surgery
Ongoing rheumatologic workup for recent episode of local classic vasculitis with pending immunology.
Original Note:
Today's Communication/Plan
-
Continue IV antibiotics
Monitor serum sodium and Hb levels.
Monitor Wound VAC drain collection.
Assessment / Plan
Assessment / Plan
Impression:
A 63 yo M with a PMHx of CHF, RA with recurrent flares, paroxysmal Afib on eliquis, chronic pain with opioid dependance, HTN, HLD, and neuropathy admitted to the floor for toxic metabolic encephalopathy secondary to left wrist osteomyelitis.
Plan -
Left wrist osteomyelitis
�left wrist cellulitis and osteomyelitis -orthopedics and ID.
started as cellulitis on 10/04 in b/l wrists, 10/16 - right wrist I&D, cefazolin for left wrist - patient missed IV infusion appointments.
Underwent I&D of left wrist on 11/01 and 11/15 - orthopedics, sampled bone biopsy was evident for osteomyelitis, and I&D for Serratia.
Inadequate response on IV vancomycin and levaquin through PICC line in left arm, last dose 12/12/2023.
upon admission on 12/05, erythematous moderately edematous fluctuant swelling of the left wrist with minimal wound dehiscence noted.
12/05 - LUE USG findings positive for 2x0.7x1.7cm complex collection in dorsum of wrist suspicious of abscess.
12/07 s/p I&D by ortho service on 12/06. Patient required extensive removal of extensor tendon and bone debridement causing extensive oozing and bleeding. Controlled with IV Tranexamic acid and pressure dressing.
12/08 hemoglobin has dropped 8.1. bleeding stopped. Initial Bactrim therapy changed to� Ertapenem after intraoperative findings.
12/09 Hbg 7.3.Had complete wound dehiscence at the surgical site in the afternoon with profuse bleeding. pressure dressing changed and repeat wound washout, debridement and closure planned 12/10.
12/10 - Wound debridement with Wound VAC and Drain.
Acute Anemia from blood loss -
12/08 - Hb - 8.3 to 12/09 - hb - 7.3, Received 1 unit of PRBC transfusion.
12/10 - Hb - 9. Low MCHC and high RDW.
12/11 - Hb - 8.8, Low Hct and MCHC, normal RDW.
Currently on ferrous gluconate.
tongue findings - likely secondary to anemia/ vitamin deficiency.
Toxic Metabolic encephalopathy - resolved
Hallucinations on 12/05 - resolved.
Not taking gabapentin and oxycodone(held for now).
CT head - 12/07 - mild diffuse cerebellar and cortical atrophy.
Other medications - venlafaxine and bupropion can also cause altered mental status.
Non - Blanching erythematous macular rash -
LE>UE, Skin biopsy done by surgery. Rash resolved.
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 follow up - outpatient dermatology.
On oral prednisone mg/day.
CHF and Paroxysml A fib -
On lasix, no symptoms for exacerbation. continue home dose.
Rate controlled on metoprolol.
Eliquis discontinued yesterday in view of planned wound debridement today.
IDDM -
on sliding scale insulin. continue monitoring POC glucose and ISS.
Chronic Back pain -
Opioids discontinued. given MME - 6.67, withdrawal less likely.
Monitor for withdrawal symptoms.
Currently on Toradol and acitamenophen for pain.
Hyponatremia -
Na 131(12/09) - 134(12/10) - 132(12/11)
Continue fluid restriction.
Monitor serum sodium levels in am.
DVT prophylaxis -
Not a candidate for medical prophylaxis given surgical wound debridement context.
sequential compression device.
Conditions prior to Admission -
Chronic steroid use
Chronic pain and opioid dependance
neuropathy
Hyperlipidemia
CHF
RA with recurrent flares
HTN
MSSA bacteremia 10/04/2023
Full code
Anticipated Discharge: > 48 hours
Subjective/Interval History
-
Date of Service: December 11, 2023
Patient has no complaints. His symptoms on tongue likely resolved.
Non blanching rash on UE and LE - resolved.
Left hand pressure dressing with wound VAC looks clean and intact.
Pain - 2/10 bearable.
Objective Data
-
Labs:
Laboratory Results
12/11/23
04:25
WBC 5.0
Hgb 8.8 L
Hct 27.1 L
Plt Count 348
Sodium 132 L
Potassium 4.8
Chloride 101
Carbon Dioxide 28
BUN 16
Creatinine 1.1
Glucose 163 H
Calcium 8.0 L
Vital Signs:
Vital Signs
Temp Pulse Resp BP Pulse Ox
97.7 F 73 18 113/68 95
12/11/23 11:35 12/11/23 11:35 12/11/23 11:35 12/11/23 11:35 12/11/23 11:35
I&O
12/10/23 12/11/23 12/12/23
06:59 06:59 06:59
Intake Total 2180 / 2180 560 / 560
Output Total 300 / 300 300 / 300
Balance 1880 / 1880 260 / 260
Review of Systems
-
History Source: Patient
All other systems: Reviewed and negative
Physical Exam
-
General: No Apparent Distress and Comfortable
HEENT: Normocephalic and Atraumatic
Respiratory: Clear to Auscultation and Other (No wheezes, rales and Ronchi)
Cardiac: Regular Rhythm, S1/S2 and Other
GI: Soft, Nontender, Nondistended and Normal Bowel Sounds
Skin: Other (Non blanching erythematous rash on UE, and LE almost resolved. Few scabs on right LE. Left upper extremity pressure dressing clean and intact. Wound VAC with intact drain noted.)
Neuro: AO x 3
[2023-12-11 15:40] VITALS: BP 110/60
[2023-12-11] MEDS: INVANZ 60 MG IV (17:11)
--- NOTE | 2023-12-11 17:21 | W.PN.ID1 ---
Date of Service
Date of Service: December 11, 2023
Today's Communication
- Continue ertapenem - through 01/01/24
Assessment / Plan
Osteomyelitis L wrist due to Serratia and possibly MSSA
Osteomyelitis R wrist due to MSSA - resolving
- osteomyelitis R wrist - MSSA
- osteomyelitis of the L wrist - Serratia (MSSA likely as well)
- follow 12/06 OR cultures - neg to date
- appreciate orthopedics input
- Continue ertapenem - through 01/01/24
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
- path consisted with early leukocytoclastic vasculitis among other differentials
- best assessment at this time is that rash was due to ongoing infection given resolution with washout and restarting previous antibiotics (ertapenem)
Chief Complaint
-: Other (rash, osteo)
Subjective / Review of Systems
afebrile
bp stable
without leukocytosis
has a wound vac now
tolerating current therapies
Vital Signs / Physical Exam
Vital Signs
Vital Signs
Temp Pulse Resp BP Pulse Ox
98.4 F 75 18 110/60 93
12/11/23 15:40 12/11/23 15:40 12/11/23 15:40 12/11/23 15:40 12/11/23 15:40
Physical Exam
Constitutional: No Acute Distress
Cardiovascular: Regular Rate and S1/S2; Negative Murmur or Rub
Pulmonary: Clear and Symmetric; Negative Wheezes or Rales
Gastrointestinal: Soft, Non Tender, Non Distended and Normal Bowel Sounds
Skin: Warm and Dry; Negative Rash (fully resolved) or Jaundice
Lines: Other (wound vac)
Objective Data
Lab Data
Lab Results
12/11/23 04:25
12/11/23 04:25
ESR 70 mm/hour (0-20) H 12/05/23 14:50
PT 14.7 Sec (11.4-14.6) H 12/09/23 18:05
INR 1.13 12/09/23 18:05
APTT 48.2 Sec (23.4-35.0) H 12/09/23 18:05
Estimated Creat Clear 79 ml/min 12/11/23 04:25
Total Bilirubin 0.5 mg/dl (0.2-1.3) 12/05/23 14:50
AST 34 U/L (17-59) 12/05/23 14:50
ALT 17 U/L (0-50) 12/05/23 14:50
Alkaline Phosphatase 120 U/L (38-126) 12/05/23 14:50
C-Reactive Protein 118.40 mg/L (0.0-10.00) H 12/05/23 14:50
Most recent labs reviewed.
Micro Results:
12/05/23 18:03 Blood Culture - Final
Blood/Venous No Growth - Final Report
12/05/23 14:50 Blood Culture - Final
Blood/Venous No Growth - Final Report
12/06/23 20:55 Anaerobic Culture - Preliminary
Wound-Deep NO ANAEROBES ISOLATED
12/06/23 20:55 Wound Culture - Preliminary
Hand - Left No growth
Gram Stain - Preliminary
12/05/23 18:03 MRSA Screen - Final
Nose No Methicillin Resistant Staphylococcus aureus isolated.
--- NOTE | 2023-12-11 18:42 | PTCARENOTE ---
pt refused picc placement tonight. agreeable for placement tomorrow morning. nightshift made aware. R AC line came out by accident per patient. R wrist line still intact. pt received IV invanz and IV iron
[2023-12-11] MEDS: TORADOL 15 MG IV (20:14)
[2023-12-11 23:39] VITALS: BP 102/50
[2023-12-12 06:00] VITALS: BMI 31.8
[2023-12-12] MEDS: EFFEXOR 75 MG PO ×2 (06:25→12:58)
[2023-12-12] MEDS: WELLBUTRIN REGULAR RELEASE 75 MG PO ×2 (06:25→12:57)
[2023-12-12 07:25] VITALS: BP 108/62
[2023-12-12] MEDS: PACERONE 200 MG PO (09:00)
[2023-12-12] MEDS: TYLENOL 1000 MG PO ×3 (09:00→21:36)
[2023-12-12] MEDS: FOLVITE 2 MG PO (09:01)
[2023-12-12] MEDS: LOPRESSOR 50 MG PO ×2 (09:01→21:36)
[2023-12-12] MEDS: LASIX PO (09:01)
[2023-12-12] MEDS: PEPCID 20 MG PO (09:01)
[2023-12-12] MEDS: MIRALAX PO (09:05)
--- NOTE | 2023-12-12 09:11 | W.PN.HOSP.TC ---
Addendum entered and electronically signed by Efrain Dutton MD 12/12/23 14:57:
Patient seen and examined.
Discussed with resident.
Agree with assessment and plan.
Left wrist osteomyelitis with wound dehiscence status post revision.
Continue wound VAC.
Continue antibiotics ertapenem through 01/01/2024.
Adjust analgesic regimen with continuation of acetaminophen in the reduction of the low-dose of oxycodone. Would avoid assisted use of NSAIDs given issue of bleeding, wound healing as well as concern for potential effect on renal function.
Original Note:
Today's Communication/Plan
-
IV toradol is relatively contraindicated as the patient is on fluid restriction from CHF and had bleeding from surgical site and NSAIDs can increase the risk of bleeding, and CELESTE.
PT and OT assessment and treatment.
Continue Antibiotics.
Pending immunology workup from Rheumatology.
Follow up labs in the am.
Assessment / Plan
Assessment / Plan
Impression:
A 63 yo M with a PMHx of CHF, RA with recurrent flares, paroxysmal Afib on eliquis, chronic pain with opioid dependance, HTN, HLD, and neuropathy admitted to the floor for toxic metabolic encephalopathy secondary to left wrist osteomyelitis.
Plan -
Left wrist osteomyelitis
�left wrist cellulitis and osteomyelitis -orthopedics and ID.
started as cellulitis on 10/04 in b/l wrists, 10/16 - right wrist I&D, cefazolin for left wrist - patient missed IV infusion appointments.
Underwent I&D of left wrist on 11/01 and 11/15 - orthopedics, sampled bone biopsy was evident for osteomyelitis, and I&D for Serratia.
Inadequate response on IV vancomycin and levaquin through PICC line in left arm, last dose 12/12/2023.
upon admission on 12/05, erythematous moderately edematous fluctuant swelling of the left wrist with minimal wound dehiscence noted.
12/05 - LUE USG findings positive for 2x0.7x1.7cm complex collection in dorsum of wrist suspicious of abscess.
12/07 s/p I&D by ortho service on 12/06. Patient required extensive removal of extensor tendon and bone debridement causing extensive oozing and bleeding. Controlled with IV Tranexamic acid and pressure dressing.
12/08 hemoglobin has dropped 8.1. bleeding stopped. Initial Bactrim therapy changed to� Ertapenem after intraoperative findings.
12/09 Hbg 7.3.Had complete wound dehiscence at the surgical site in the afternoon with profuse bleeding. pressure dressing changed and repeat wound washout, debridement and closure planned 12/10.
12/10 - Wound debridement with Wound VAC and Drain.
12/11 - patient had an episode of severe pain in the left hand in the night, received IV toradol.
Acute Anemia from blood loss -
12/08 - Hb - 8.3 to 12/09 - hb - 7.3, Received 1 unit of PRBC transfusion.
12/10 - Hb - 9. Low MCHC and high RDW.
12/11 - Hb - 8.8, Low Hct and MCHC, normal RDW.
Currently on ferrous gluconate.
tongue findings -Normal.
Toxic Metabolic encephalopathy - resolved
Hallucinations on 12/05 - resolved.
Not taking gabapentin and oxycodone(held for now).
CT head - 12/07 - mild diffuse cerebellar and cortical atrophy.
Other medications - venlafaxine and bupropion can also cause altered mental status.
Non - Blanching erythematous macular rash - subsided
LE>UE, Skin biopsy done by surgery. Rash resolved.
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 follow up - outpatient dermatology.
Rheumatology evaluation, Immunology panel pending.
On oral prednisone mg/day.
CHF and Paroxysml A fib -
On lasix, no symptoms for exacerbation. Continue home dose.
Rate controlled on metoprolol.
Eliquis discontinued on Sunday for revision surgery on Sunday.
IDDM -
on sliding scale insulin. continue monitoring POC glucose and ISS.
Chronic Back pain -
Opioids discontinued. given MME - 6.67, withdrawal less likely.
Monitor for withdrawal symptoms.
Currently on acitamenophen and Oxycodone as needed for pain.
Hyponatremia -
Na 131(12/09) - 134(12/10) - 132(12/11)
Continue fluid restriction.
Monitor serum sodium levels in am.
Monitor Inputs and outputs
DVT prophylaxis -
Not a candidate for medical prophylaxis given surgical wound debridement context.
sequential compression device.
Early mobility out of bed -
PT and OT assessment and therapy.
Conditions prior to Admission -
Chronic steroid use
Chronic pain and opioid dependance
neuropathy
Hyperlipidemia
CHF
RA with recurrent flares
HTN
MSSA bacteremia 10/04/2023
Full code
Anticipated Discharge: > 48 hours
Subjective/Interval History
-
Date of Service: December 12, 2023
Pain 5-6/10 yesterday night. Patient reports that he doesn't want to take narcotics for pain. Patient took Toradol yesterday night, wants to know if he can get toradol instead of oxycodone.
Patient also reports difficulty in walking to the bedside commode from prolonged lying down in the bed.
Able to wiggle fingers, denies tingling and numbness reports only pain in the left hand
Objective Data
-
Vital Signs:
Vital Signs
Temp Pulse Resp BP Pulse Ox
97.6 F 72 16 108/62 98
12/12/23 07:25 12/12/23 09:01 12/12/23 07:25 12/12/23 09:01 12/12/23 07:25
I&O
12/11/23 12/12/23 12/13/23
06:59 06:59 06:59
Intake Total 560 / 560 1670 / 1670
Output Total 300 / 300 1100 / 1100
Balance 260 / 260 570 / 570
Review of Systems
-
History Source: Patient
Constitutional: Reports Fatigue and Weakness
Respiratory: Reports Cough
Physical Exam
-
General: No Apparent Distress and Comfortable
HEENT: Normocephalic, Atraumatic and Moist Mucous Membranes
Respiratory: Clear to Auscultation and Other (No wheezing, rales, and ronchi.)
Cardiac: Regular Rhythm, S1/S2 and Other (no murmurs, rubs gallops)
GI: Soft, Nontender, Nondistended and Normal Bowel Sounds
Skin: Other (left arm pressure dressing clean and intact, wound VAC present)
Neuro: AO x 3
Psych: Calm
[2023-12-12] MEDS: FERRLECIT 110 MG IV (13:00)
--- NOTE | 2023-12-12 14:38 | CM ---
Reviewed the chart note. PT and OT evaluate and treat order placed. Awaiting evaluations for determination for discharge. Wound vac in place on L wrist. Per ID, continue ertapenem - through 01/01/24. CM continues to be available to patient/family
and is monitoring medical plan for needs at discharge.
Plan: Discharge plans will depend on the patient's progress.
--- NOTE | 2023-12-12 15:06 | W.PN.ID1 ---
Date of Service
Date of Service: December 12, 2023
Today's Communication
shares that tomorrow is the anniversary of his daughters which is understandably challenging
- Continue ertapenem - through 01/01/24; will likely continue bactrim 1 DS tab BID another several months in the outpatient setting - decisions pending course including inflammatory markers and healing
Assessment / Plan
Osteomyelitis L wrist due to Serratia and possibly MSSA
Osteomyelitis R wrist due to MSSA - resolving
- osteomyelitis R wrist - MSSA
- osteomyelitis of the L wrist - Serratia (MSSA likely as well)
- follow 12/06 OR cultures - neg to date
- appreciate orthopedics input
- Continue ertapenem - through 01/01/24; will likely continue bactrim 1 DS tab BID another several months in the outpatient setting - decisions pending course including inflammatory markers and healing
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
Chief Complaint
-: Other (rash, osteo)
Subjective / Review of Systems
afebrile
bp stable
hgb stable
12/07 pathology: Acute osteomyelitis and partial osteonecrosis
tolerating current therapies
visibly upset, shares its a difficult time for him.
Vital Signs / Physical Exam
Vital Signs
Vital Signs
Temp Pulse Resp BP Pulse Ox
97.6 F 72 16 108/62 98
12/12/23 07:25 12/12/23 09:01 12/12/23 07:25 12/12/23 09:01 12/12/23 12:04
Physical Exam
Constitutional: No Acute Distress
Cardiovascular: Regular Rate and S1/S2; Negative Murmur or Rub
Pulmonary: Clear and Symmetric; Negative Wheezes or Rales
Gastrointestinal: Soft, Non Tender, Non Distended and Normal Bowel Sounds
Skin: Warm and Dry; Negative Rash or Jaundice
Lines: Other (wound vac)
Objective Data
Lab Data
Lab Results
12/11/23 04:25
12/11/23 04:25
ESR 70 mm/hour (0-20) H 12/05/23 14:50
PT 14.7 Sec (11.4-14.6) H 12/09/23 18:05
INR 1.13 12/09/23 18:05
APTT 48.2 Sec (23.4-35.0) H 12/09/23 18:05
Estimated Creat Clear 79 ml/min 12/11/23 04:25
Total Bilirubin 0.5 mg/dl (0.2-1.3) 12/05/23 14:50
AST 34 U/L (17-59) 12/05/23 14:50
ALT 17 U/L (0-50) 12/05/23 14:50
Alkaline Phosphatase 120 U/L (38-126) 12/05/23 14:50
C-Reactive Protein 118.40 mg/L (0.0-10.00) H 12/05/23 14:50
Most recent labs reviewed.
Micro Results:
12/06/23 20:55 Wound Culture - Final
Hand - Left No growth
Gram Stain - Final
12/06/23 20:55 Anaerobic Culture - Final
Wound-Deep NO ANAEROBES ISOLATED
12/05/23 18:03 Blood Culture - Final
Blood/Venous No Growth - Final Report
12/05/23 14:50 Blood Culture - Final
Blood/Venous No Growth - Final Report
12/05/23 18:03 MRSA Screen - Final
Nose No Methicillin Resistant Staphylococcus aureus isolated.
[2023-12-12 15:25] VITALS: PULSE 67; O2SAT 97
[2023-12-12 15:34] VITALS: PULSE 67; O2SAT 97
[2023-12-12 15:52] VITALS: BP 159/84
[2023-12-12] MEDS: INVANZ 60 MG IV (17:00)
[2023-12-12 23:56] VITALS: BP 135/74
[2023-12-13] MEDS: TYLENOL 650 MG PO (02:21)
[2023-12-13] MEDS: EFFEXOR 75 MG PO ×2 (06:08→13:05)
[2023-12-13] MEDS: WELLBUTRIN REGULAR RELEASE 75 MG PO ×2 (06:09→13:05)
[2023-12-13 07:25] VITALS: BP 144/73
[2023-12-13 08:15] LABS: % Basophils 0.8 % (0-2); % Eosinophils 8.4 % (0-6); % Immature Granulocytes 1.6 % (0-0.5); % Lymphocytes 24.3 % (20.5-51.1); % Monocytes 12.6 % (1.7-9.3); % Neutrophils 52.3 % (42.2-75.2); Absolute Basophils 0.1 10^3/uL (0-0.2); Absolute Eosinophils 0.8 10^3/uL (0-0.7); Absolute Immature Granulocytes 0.2 10^3/uL (0-0.05); Absolute Lymphocytes 2.4 10^3/uL (1.2-3.4); Absolute Monocytes 1.3 10^3/uL (0.1-0.6); Absolute Neutrophils 5.2 10^3/uL (1.4-6.5); Hematocrit 26.6 % (39.0-52.0); Hemoglobin 8.4 g/dL (13.0-18.0); Mean Corp Hgb Conc. 31.6 g/dL (33.0-37.0); Mean Corpuscular Hgb 29.3 pg (27.0-31.0); Mean Corpuscular Volume 92.7 fL (80.0-94.0); Mean Platelet Volume 8.6 fL (7.4-10.4); Nucleated Red Blood Cells % 0 % (-); Platelet Count 330 10^3/uL (130-400); Red Blood Cell Count 2.87 10^6/uL (4.70-6.10); Red Cell Dist. Width 15.3 % (11.5-14.5)
[2023-12-13] MEDS: PACERONE 200 MG PO (08:34)
[2023-12-13] MEDS: TYLENOL 1000 MG PO ×3 (08:34→21:16)
[2023-12-13] MEDS: FOLVITE 2 MG PO (08:34)
[2023-12-13] MEDS: PEPCID 20 MG PO (08:35)
[2023-12-13] MEDS: LOPRESSOR 50 MG PO ×2 (08:35→21:17)
[2023-12-13] MEDS: LASIX PO (08:37)
[2023-12-13] MEDS: MIRALAX PO (08:37)
[2023-12-13 08:42] LABS: Blood Urea Nitrogen 15 mg/dl (9-20); Calcium 8.4 mg/dl (8.4-10.2); Carbon Dioxide 31 mmol/L (22-30); Chloride 106 mmol/L (98-107); Estimated Creatinine Clearance 97 ml/min; Glucose 105 mg/dl (70-99); Potassium 4.6 mmol/L (3.5-5.1); Sodium 137 mmol/L (135-145); eGFR > 60.00
[2023-12-13 09:18] LABS: CCP Antibody IgG/IgA 26 Units (0-19)
[2023-12-13 11:08] VITALS: BP 160/79; PULSE 70; O2SAT 96
[2023-12-13 12:00] VITALS: BMI 33.2
[2023-12-13] MEDS: FERRLECIT 110 MG IV (13:05)
--- NOTE | 2023-12-13 14:00 | W.PN.HOSP.TC ---
Today's Communication/Plan
-
Continue IV antibiotics
Continue wound VAC
Off Eliquis pending further surgical intervention on 12/14
Reported COVID exposure. Will check COVID antigen
Assessment / Plan
Assessment / Plan
Impression:
A 63 yo M with a PMHx of CHF, RA with recurrent flares, paroxysmal Afib on eliquis, chronic pain with opioid dependance, HTN, HLD, and neuropathy admitted to the floor for toxic metabolic encephalopathy secondary to left wrist osteomyelitis.
Left wrist osteomyelitis.
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
Toxic metabolic encephalopathy improved
Hyponatremia
Conditions prior to admission:
MSSA bacteremia with bilateral wrist septic arthropathy
Paroxysmal atrial fibrillation.
Anticoagulation with Eliquis.
IDDM.
Chronic diastolic CHF.
Chronic back pain and narcotic dependence.
Rheumatoid arthritis, immunosuppressed on Remicade last infusion September 2023
Essential hypertension.
Dyslipidemia
Neuropathy.
Plan -
Left wrist osteomyelitis
Status post multiple wound debridement
Completed course of vancomycin for MSSA.
Latest left wrist wound culture with Serratia.� Antibiotics consolidated to ertapenem as per ID
Left wrist wound dehiscence with bleeding
Holding Eliquis
Status post wound revision on 12/10
Continue wound VAC.
Discussed with plastic surgery.
Wound VAC to be continued
Another wound washout on 12/14 following with skin flap on 12/18 with later elective fusion by orthopedics
Acute Anemia from blood loss -
12/08 - Hb - 8.3 to 12/09 - hb - 7.3, Received 1 unit of PRBC transfusion.
12/10 - Hb - 9. Low MCHC and high RDW.
Currently on ferrous gluconate.
tongue findings - likely secondary to anemia/ vitamin deficiency.
Toxic Metabolic encephalopathy - resolved
Hallucinations on 12/05 - resolved.
Not taking gabapentin and oxycodone(held for now).
CT head - 12/07 - mild diffuse cerebellar and cortical atrophy.
Other medications - venlafaxine and bupropion can also cause altered mental status.
Non - Blanching erythematous macular rash -
LE>UE, Skin biopsy done by surgery.
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 follow up - outpatient dermatology.
Rash improved
Steroids initially weaned off to prednisone 5 mg daily, patient declined further treatment.� Prednisone has been discontinued on 12/10.
CHF and Paroxysml A fib -
On lasix as needed [employer].� No symptoms for exacerbation. continue home dose.
Rate controlled on metoprolol.
IDDM -
on sliding scale insulin. continue monitoring POC glucose and ISS.
Chronic Back pain -narcotic dependence.
On opiates prior to admission
6. Chronic back pain
-Toradol seems to help in the past, ordered
8. Hyponatremia
-new drift down, fluid restriction
history of severe RA with recurrent flare
On Remicade [employer] last infusion September 2023
DVT PPX - scd
Full code
Anticipated Discharge: 24 - 48 hours
Subjective/Interval History
-
Date of Service: December 13, 2023
Objective Data
-
Labs:
Laboratory Results
12/13/23
07:58
WBC 10.0
Hgb 8.4 L
Hct 26.6 L
Plt Count 330
Sodium 137
Potassium 4.6
Chloride 106
Carbon Dioxide 31 H
BUN 15
Creatinine 0.9
Glucose 105 H
Calcium 8.4
Vital Signs:
Vital Signs
Temp Pulse Resp BP Pulse Ox
97.6 F 68 14 144/73 96
12/13/23 07:25 12/13/23 08:35 12/13/23 07:25 12/13/23 08:35 01/18/24 12:15
I&O
12/12/23 12/13/23 12/14/23
06:59 06:59 06:59
Intake Total 1670 / 1670 1140 / 1140
Output Total 1100 / 1100
Balance 570 / 570 1140 / 1140
Physical Exam
-
General: Well Developed and No Apparent Distress
HEENT: Normocephalic, Atraumatic and Moist Mucous Membranes
Respiratory: Clear to Auscultation
Cardiac: Regular Rhythm and S1/S2; Negative Murmur, Rub or Gallop
GI: Soft, Nontender, Nondistended and Normal Bowel Sounds; Negative Organomegaly
Rectal: Deferred by Provider
Musculoskeletal: No Clubbing, No Cyanosis and No Edema
Skin: Negative Rash
Neuro: Nonfocal/Grossly Intact
[2023-12-13 14:25] LABS: COVID-19 Antigen Negative (Negative)
--- NOTE | 2023-12-13 15:40 | PTCARENOTE ---
Patient with L upper extremity restriction due to wound vac, R upper extremity restriction due to PICC line. Per , okay to get blood pressures in R forearm despite RUE restriction.
[2023-12-13 15:45] VITALS: BP 121/65
--- NOTE | 2023-12-13 15:46 | CM ---
Reviewed the chart notes and spoke with the patient and his spouse at the bedside. Per patient, OR tomorrow with wound vac change and either Sunday or Sunday for plastic surgery. PT recommending SNF. Patient would like referral to [facility] as that
was where he was prior to hospitalization. CM continues to be available to patient/family and is monitoring medical plan for needs at discharge.
Plan: Discharge to SNF/rehab when medically stable. [facility] would be first choice.
--- NOTE | 2023-12-13 16:01 | W.PN.ID1 ---
Date of Service
Date of Service: December 13, 2023
Today's Communication
continue ertapenem
Assessment / Plan
Osteomyelitis L wrist due to Serratia and possibly MSSA
Osteomyelitis R wrist due to MSSA - resolving
- osteomyelitis R wrist - MSSA
- osteomyelitis of the L wrist - Serratia (MSSA likely as well)
- follow 12/06 OR cultures - neg to date
- appreciate orthopedics input
- Continue ertapenem - through 01/01/24; will likely continue bactrim 1 DS tab BID another several months in the outpatient setting - decisions pending course including inflammatory markers and healing
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
Chief Complaint
-: Other (rash, osteo)
Subjective / Review of Systems
afebrile
bp stable
no leukocytosis
cr stable
for OR tomorrow with vac change
Vital Signs / Physical Exam
Vital Signs
Vital Signs
Temp Pulse Resp BP Pulse Ox
97.6 F 68 14 144/73 96
12/13/23 07:25 12/13/23 08:35 12/13/23 07:25 12/13/23 08:35 12/13/23 12:15
Physical Exam
Constitutional: No Acute Distress
Cardiovascular: Regular Rate and S1/S2; Negative Murmur or Rub
Pulmonary: Clear and Symmetric; Negative Wheezes or Rales
Gastrointestinal: Soft, Non Tender, Non Distended and Normal Bowel Sounds
Skin: Warm and Dry; Negative Rash or Jaundice
Lines: PICC
Objective Data
Lab Data
Lab Results
12/13/23 07:58
12/13/23 07:58
ESR 70 mm/hour (0-20) H 12/05/23 14:50
PT 14.7 Sec (11.4-14.6) H 12/09/23 18:05
INR 1.13 12/09/23 18:05
APTT 48.2 Sec (23.4-35.0) H 12/09/23 18:05
Estimated Creat Clear 97 ml/min 12/13/23 07:58
Total Bilirubin 0.5 mg/dl (0.2-1.3) 12/05/23 14:50
AST 34 U/L (17-59) 12/05/23 14:50
ALT 17 U/L (0-50) 12/05/23 14:50
Alkaline Phosphatase 120 U/L (38-126) 12/05/23 14:50
C-Reactive Protein 118.40 mg/L (0.0-10.00) H 12/05/23 14:50
Most recent labs reviewed.
Micro Results:
12/06/23 20:55 Wound Culture - Final
Hand - Left No growth
Gram Stain - Final
12/06/23 20:55 Anaerobic Culture - Final
Wound-Deep NO ANAEROBES ISOLATED
12/05/23 18:03 Blood Culture - Final
Blood/Venous No Growth - Final Report
12/05/23 14:50 Blood Culture - Final
Blood/Venous No Growth - Final Report
12/05/23 18:03 MRSA Screen - Final
Nose No Methicillin Resistant Staphylococcus aureus isolated.
[2023-12-13] MEDS: ULTRAM 25 MG PO (16:32)
[2023-12-13] MEDS: INVANZ 60 MG IV (17:01)
[2023-12-13 23:30] VITALS: BP 115/63
[2023-12-13 23:41] LABS: Albumin 2.34 g/dL (3.75-5.01); Alpha 1 Globulin 0.42 g/dL (0.19-0.46); Alpha 2 Globulin 0.77 g/dL (0.48-1.05); Free Kappa Light Chains,Quant 61.46 mg/L (3.30-19.40); Free Lambda Light Chains,Quant 59.77 mg/L (5.71-26.30); IgA 591 mg/dL (68-408); IgG 698 mg/dL (768-1632); IgM 27 mg/dL (35-263); Immunofixation Electrophoresis IFE Done; Kappa/Lambda Fr Light Ratio 1.03 (0.26-1.65); Total Protein-Electrophoresis 5.2 g/dL (6.3-8.2)
[2023-12-13 23:58] LABS: Myeloperoxidase Antibody 5 AU/mL (0-19); Serine Protease-3, IgG 4 AU/mL (0-19)
[2023-12-14] VITALS (9 sets, daily range): BP systolic 109–173; BP diastolic 58–98; BMI 31.6
[2023-12-14] MEDS: WELLBUTRIN REGULAR RELEASE 75 MG PO ×2 (05:59→14:00)
[2023-12-14] MEDS: EFFEXOR 75 MG PO ×2 (05:59→14:00)
[2023-12-14 07:22] LABS: Blood Urea Nitrogen 14 mg/dl (9-20); Calcium 8.5 mg/dl (8.4-10.2); Carbon Dioxide 30 mmol/L (22-30); Chloride 107 mmol/L (98-107); Estimated Creatinine Clearance 96 ml/min; Glucose 96 mg/dl (70-99); Potassium 4.6 mmol/L (3.5-5.1); Sodium 137 mmol/L (135-145); eGFR > 60.00
[2023-12-14 08:02] LABS: Hematocrit 26.4 % (39.0-52.0); Hemoglobin 8.4 g/dL (13.0-18.0); Mean Corp Hgb Conc. 31.8 g/dL (33.0-37.0); Mean Corpuscular Hgb 29.4 pg (27.0-31.0); Mean Corpuscular Volume 92.3 fL (80.0-94.0); Platelet Count 327 10^3/uL (130-400); Red Blood Cell Count 2.86 10^6/uL (4.70-6.10); Red Cell Dist. Width 15.5 % (11.5-14.5); White Blood Cell Count 10.2 10^3/uL (4.8-10.8)
[2023-12-14] MEDS: LASIX PO (08:23)
[2023-12-14] MEDS: LOPRESSOR 50 MG PO ×2 (08:23→21:07)
[2023-12-14] MEDS: MIRALAX PO (08:24)
[2023-12-14] MEDS: TYLENOL 1000 MG PO ×2 (08:24→21:06)
[2023-12-14] MEDS: PACERONE 200 MG PO (08:24)
[2023-12-14] MEDS: PEPCID 20 MG PO (08:24)
[2023-12-14] MEDS: FOLVITE 2 MG PO (08:24)
--- NOTE | 2023-12-14 08:41 | CON.PS ---
Consultation - Plastic Surgery
Consultation Request
Performing Provider: MIKEL Disla MD
Reason for Consultation: Dorsal hand wound
Medical History
-
Chief Complaint: Dorsal hand wound
History of Present Illness:
63-year-old male with a longstanding history of rheumatoid arthritis on TNF alpha and steroid therapy. He suffered bouts of bilateral acute osteomyelitis of the wrists. Both were washed out and infectious disease was consulted for directed IV
antibiotic therapy. The left dorsal wrist suffered recurrent bouts of infection requiring repeat trips to the OR. Dr. Carbajal from orthopedic surgery performed debridements which included the extensor mechanism, proximal metacarpals, carpus, and
distal radius and ulna. Most recently the patient suffered a wound dehiscence requiring return to OR for washout of hematoma.
I was present in this case and placed a wound VAC to temporize the defect.
Patient is left with soft tissue deficit as well as bony or tendon loss. Has been discussed with the patient at the wrist and hand are threatened by this recurrent infection and that he has a complicated reconstructive course.
Past Medical History
Past Medical History: CHF and Other
Past Surgical History: Orthopedic
Family History
Family History: Reviewed & Not Pertinent
Allergies / Home Medications
Allergy/AdvReac Type Severity Reaction Status Date / Time
grass pollen Allergy Itchy Verified 12/05/23 12:30
eyes,
headaches
house dust Allergy nose gets Verified 12/05/23 12:30
stuffed
up/sinus
problems
mold Allergy nose gets Verified 12/05/23 12:30
stuffed
up/sinus
problems
Medication Instructions Recorded Confirmed Type
bupropion HCl 75 mg tablet 75 mg PO BID Mental Health/Anxiety 05/01/22 12/05/23 History
folic acid 1 mg tablet 2 mg PO DAILY Supplement 05/15/23 12/05/23 History
gabapentin 100 mg capsule 200 mg PO HS Pain 05/15/23 12/05/23 History
apixaban 5 mg tablet (Eliquis) 5 mg PO BID 30 days #60 tabs 05/18/23 12/05/23 Rx
famotidine 20 mg tablet 20 mg PO DAILY Gastrointestinal 10/14/23 12/05/23 History
Issue
polyethylene glycol 3350 17 gram 17 g PO DAILY Constipation 10/15/23 12/05/23 History
oral powder packet (Miralax)
bacitracin zinc 500 unit/gram 1 applic topical DAILY #1 g 10/23/23 12/05/23 Rx
topical ointment
acetaminophen 325 mg tablet 650 mg PO Q4HPRN PRN mild pain 11/14/23 12/05/23 History
(Tylenol)
amiodarone 200 mg tablet (Pacerone) 200 mg PO DAILY 11/14/23 12/05/23 History
bisacodyl 10 mg rectal suppository 10 mg DC DAILY PRN constipation 11/14/23 12/05/23 History
(Dulcolax (bisacodyl))
guaifenesin 600 mg tablet, 600 mg PO BID 11/14/23 12/05/23 History
extended release 12 hr (Mucinex)
ibuprofen 600 mg tablet 600 mg PO DAILYPRN PRN moderate 11/14/23 12/05/23 History
pain
insulin lispro 100 unit/mL 1 sliding scale dose SC DIRECTED 11/14/23 12/05/23 History
subcutaneous pen (Humalog KwikPen
(U-100) Insulin)
magnesium hydroxide 400 mg/5 mL 30 ml PO DAILY PRN if no bm by 4th 11/14/23 12/05/23 History
oral suspension (Milk of Magnesia) day
melatonin 5 mg tablet 5 mg PO HS 11/14/23 12/05/23 History
sodium phosphates 19 gram-7 118 ml DC DAILY PRN constipation 11/14/23 12/05/23 History
gram/118 mL enema (Fleet Enema)
acetaminophen 500 mg tablet 1,000 mg PO TID Pain 12/05/23 12/05/23 History
(Tylenol Extra Strength)
alteplase 2 mg intra-catheter 2 mg intra-catheter DAILYPRN PRN 12/05/23 12/05/23 History
solution (Cathflo Activase) iv use
diphenhydramine HCl 25 mg capsule 25 mg PO BIDPRN PRN RASG 12/05/23 12/05/23 History
(Benadryl)
furosemide 40 mg tablet (Lasix) 40 mg PO DAILY 12/05/23 12/05/23 History
hydromorphone 2 mg tablet 2 mg PO Q6HPRN PRN SEVERE PAIN 12/05/23 12/05/23 History
levofloxacin 750 mg tablet 750 mg PO DAILY 12/05/23 12/05/23 History
metformin 500 mg tablet,extended 1,000 mg PO DAILY 12/05/23 12/05/23 History
release 24 hr
metoprolol tartrate 50 mg tablet 50 mg PO Q12H 12/05/23 12/05/23 History
(Lopressor)
ondansetron HCl 4 mg tablet 4 mg PO Q6HPRN PRN NAUSEA 12/05/23 12/05/23 History
oxycodone 5 mg tablet 5 mg PO Q8HPRN PRN moderate pain 12/05/23 12/05/23 History
prednisone 5 mg tablet 50 mg PO .TAPER 12/05/23 12/05/23 History
sennosides 8.6 mg tablet (senna) 8.6 mg PO DAILY 12/05/23 12/05/23 History
vancomycin 1.25 gram intravenous 1 g IV Q12H 12/05/23 12/05/23 History
solution
venlafaxine 75 mg tablet 75 mg PO BID 12/05/23 12/05/23 History
venlafaxine 75 mg tablet 75 mg PO HSPRN PRN anixety 12/05/23 12/05/23 History
Review of Systems
-
History Source: Patient
Musculoskeletal: Other
Skin: Other
Physical Exam
Vital Signs
Temp 97.9 F 12/14/23 08:22
Temp route: Oral 12/14/23 08:22
Pulse 73 12/14/23 08:23
Resp Rate 16 12/14/23 08:22
Blood pressure 136/70 12/14/23 08:24
Blood pressure extremity used: Right forearm 12/14/23 08:22
Position: Lying 12/14/23 08:22
MAP (cuff-Eliezer Monitor) 87 12/10/23 18:30
MAP 90 12/05/23 12:22
SaO2 96 12/14/23 08:22
Nasal Cannula flow liters per minute 2 12/07/23 00:00
Oxygen Mode of Delivery Room air 12/14/23 08:22
Oxygen Mode of Delivery: Room air 12/10/23 18:35
Flow liters per minute # 10 12/10/23 18:05
Pulse Ox at Rest 96 12/13/23 11:08
Can the patient verbally communicate their pain? Yes 12/13/23 19:55
Pain scale ratin 12/13/23 17:32
Actual Weight 210 lb 8 oz 12/14/23 06:00
Body Mass Index (BMI) 31.6 12/14/23 06:00
Supine- Blood Pressure 160/79 12/13/23 11:08
Supine- Pulse 70 12/13/23 11:08
Physical exam:
No acute distress
No increased work of breathing
Left dorsal wrist with large soft tissue deficit
No extensor function of the left wrist or fingers
Palpable radial ulnar pulses
No evidence of ongoing vascular compromise
Large bony defect from mid level of the metacarpals to the distal radius and ulna
No evidence of necrotic tissue or purulence
Lab Results
12/14/23 06:42
12/14/23 06:42
Assessment / Plan
-
Complicated left dorsal wrist soft tissue defect with loss of extensors as well as bony carpus including the proximal metacarpals and distal radius and ulna.
With a very honest discussion about the long road to recovery and functional outcome for him given the defect. The for step is getting soft tissue coverage. This will allow for future operations should he need fixation, bone grafting, tendon
grafting.
Local options are limited given the paucity of skin and extensive debridement. Secondary intention is unlikely to succeed given the bony exposure. Regional options include reverse radial forearm flap. This is a well-described option for wounds of
this nature but it does require harvest of the radial artery. As such we will undergo CTA to ensure the patency of the palmar arch. We will also perform Alejandro's test to ensure viability of the radial digits with the radial artery occluded. We
discussed that it is very real possibility that he could lose digits or parts of his hand, potentially resulting in amputation.
Backup options include free tissue transfer. Should this be pursued could be paired with bony vascularized tissue. This would require referral to the orthoplastic team at [facility].
Orthopedics plan at present is to return to the OR at some future date for potential bone grafting and tendon transfers.
Patient is present at bedside. Risks of the procedure including venous congestion, flap failure, vascular compromise to the hand, sensory changes were discussed at length. We also discussed the need for split-thickness skin grafting to cover
the donor site of the proximal volar forearm. This will be harvested from the ipsilateral thigh.
All questions were answered
Will undergo washout on 12/14/2023 with VAC change to ensure appropriateness for flap coverage
CTA in the interim
Plan for flap coverage on 12/18/2023
Data Reviewed
-
Diagnostic Radiology: Image Personally Visualized and interpreted
CT Scan: Image Personally Visualized and interpreted
--- NOTE | 2023-12-14 09:22 | CM ---
Reviewed the chart notes. Patient is scheduled for washout and wound vac change today. Per plastic surgeon note, plan for flap coverage on 12/18/2023. CM continues to be available to patient/family and is monitoring medical plan for needs at
discharge.
Plan: Discharge to SNF/rehab once medically stable and bed available. [facility] is first choice.
--- NOTE | 2023-12-14 10:00 | W.SUR.PREOP ---
Pre-Operative Surgical Note
-
I have examined this patient prior to the performance of the scheduled procedure.
The patient's condition is unchanged from the time of the current History and
Physical and the patient is able to undergo the scheduled procedure.
--- NOTE | 2023-12-14 10:25 | PTCARENOTE ---
Patient with L upper extremity restriction due to wound vac, R upper extremity restriction due to PICC line. pt refused lasix and miralax for this nurse this AM. pt to go this afternoon for a washout
--- NOTE | 2023-12-14 10:32 | W.PN.HOSP.TC ---
Addendum entered and electronically signed by Efrain Dutton MD 12/14/23 13:57:
Patient seen and examined
Discussed with resident
Discussed with plastic surgery
Left wrist osteomyelitis with wound dehiscence.
For OR revision today.
Off Eliquis.
Wound VAC postoperatively.
For skin flap next week.
CT angiogram of upper extremity prior to skin flap
Original Note:
Today's Communication/Plan
-
-Continue antibiotics
-Revision surgery today with planned change in wound VAC.
-NPO for now, resume diet in the night.
-Hold off eliquis
-negative for COVID, repeat test on day 3 and day 5.
Assessment / Plan
Assessment / Plan
IMPRESSION:
A 63 yo M with a PMHx of CHF, RA with recurrent flares, paroxysmal Afib on eliquis, chronic pain with opioid dependance, HTN, HLD, and neuropathy admitted to the floor for toxic metabolic encephalopathy secondary to left wrist osteomyelitis.
Left wrist osteomyelitis.
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
Toxic metabolic encephalopathy improved
Hyponatremia
Conditions prior to admission:
MSSA bacteremia with bilateral wrist septic arthropathy
Paroxysmal atrial fibrillation.
Anticoagulation with Eliquis.
IDDM.
Chronic diastolic CHF.
Chronic back pain and narcotic dependence.
Rheumatoid arthritis, immunosuppressed on Remicade last infusion September 2023
Essential hypertension.
Dyslipidemia
Neuropathy.
Plan -
Left wrist osteomyelitis
Status post multiple wound debridement
Completed course of vancomycin for MSSA.
Latest left wrist wound culture with Serratia.� Antibiotics consolidated to ertapenem as per ID
Left wrist wound dehiscence with bleeding
Holding Eliquis
Status post wound revision on 12/10
Continue wound VAC.
Discussed with plastic surgery.
Wound VAC to be continued
Wound washout(3rd revision) with a new wound VAC placement
Will be followed by skin flap on 12/18 with later elective fusion by orthopedics
Acute Anemia from blood loss -
12/08 - Hb - 8.3 to 12/09 - hb - 7.3, Received 1 unit of PRBC transfusion.
12/10 - Hb - 9. Low MCHC and high RDW.
12/13 - Hb -8.4, 12/14 - Hb 8.4 currently stable
Currently on ferrous gluconate.
tongue findings - likely secondary to anemia/ vitamin deficiency.
Toxic Metabolic encephalopathy - resolved
Hallucinations on 12/05 - resolved.
Not taking gabapentin and oxycodone(held for now).
CT head - 12/07 - mild diffuse cerebellar and cortical atrophy.
Other medications - venlafaxine and bupropion can also cause altered mental status.
Non - Blanching erythematous macular rash -
LE>UE, Skin biopsy done by surgery.
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 follow up - outpatient dermatology.
Rash resolved.
Steroids initially weaned off to prednisone 5 mg daily, patient declined further treatment.� Prednisone has been discontinued on 12/10.
CHF and Paroxysml A fib -
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 continue home dose.
Rate controlled on metoprolol.
IDDM -
on sliding scale insulin. continue monitoring POC glucose and ISS.
Chronic Back pain -narcotic dependence.
On opiates prior to admission
6. Chronic back pain
-Toradol seems to help in the past, ordered
8. Hyponatremia
-new drift down, fluid restriction
history of severe RA with recurrent flare
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
DVT PPX - scd
Full code
Anticipated Discharge: > 48 hours
Subjective/Interval History
-
Date of Service: December 14, 2023
Patient has revision surgery planned today.
Patient reports 3/10 pain in the left hand.
Objective Data
-
Labs:
Laboratory Results
12/14/23
06:42
WBC 10.2
Hgb 8.4 L
Hct 26.4 L
Plt Count 327
Sodium 137
Potassium 4.6
Chloride 107
Carbon Dioxide 30
BUN 14
Creatinine 0.9
Glucose 96
Calcium 8.5
Vital Signs:
Vital Signs
Temp Pulse Resp BP Pulse Ox
97.9 F 73 16 136/70 96
12/14/23 08:22 12/14/23 08:23 12/14/23 08:22 12/14/23 08:24 12/14/23 08:22
I&O
12/13/23 12/14/23 12/15/23
06:59 06:59 06:59
Intake Total 1140 / 1140 1680 / 1680
Output Total 600 / 600
Balance 1140 / 1140 1080 / 1080
Review of Systems
-
History Source: Patient
All other systems: Reviewed and negative
Physical Exam
-
General: No Apparent Distress and Comfortable
HEENT: Normocephalic, Atraumatic and Moist Mucous Membranes
Respiratory: Clear to Auscultation and Other (no wheezes, rales and ronchi)
Cardiac: S1/S2 and Other (no murmur, rubs and gallops)
GI: Soft, Nontender, Nondistended and Normal Bowel Sounds
Neuro: AO x 3 and Nonfocal/Grossly Intact
Psych: Calm
[2023-12-14 12:29] LABS: Absolute Neutrophils -Man Diff 5.8 10^3/uL (1.4-6.5); Band Neutrophils 0 % (0-3); Eosinophils 5 % (0-6); Lymphocytes 27 % (20-51); Monocytes 11 % (2-9); Normal RBC Morphology Yes; Platelets Checked Yes; Segmented Neutrophils 57 % (42-75); Total Cells Counted 100
--- NOTE | 2023-12-14 15:32 | OR.RPT ---
Operative Report
Operative Report
Surgeon: MIKEL Disla MD
Preoperative diagnosis: Left dorsal wrist wound, septic arthritis
Postoperative diagnosis: Same
Procedure:
1. Debridement to fascia, left dorsal wrist, 9 x 4 cm
2. Negative pressure wound VAC application
Anesthesia: General
Complications: None
EBL: Minimal
Indications for procedure: Patient is a 63-year-old male with a longstanding history of rheumatoid arthritis who recently underwent multiple debridements for bilateral septic arthritis of the wrist joint. He subsequently healed on the right but had
recurrent infections on the left. He is maintained on IV antibiotics followed by ID. Dr. Carbajal performed debridements which included removal of the extensor mechanism, distal radius and ulna, dorsal aspect of the carpal bones, proximal aspect of
the metacarpal bones. He is left with an unstable wrist with a large soft tissue defect and exposed bone. Plan was made for repeat debridement and wound VAC change under anesthesia prior to flap reconstruction. He understood the risk the
procedure desired to proceed. Consents were signed accordingly
Procedure in detail: Patient was identified preoperatively and the surgical site was confirmed to be the left wrist. Consents were confirmed and all questions were answered. In patient was taken back to the operating placed supine table. Hand
table was placed in the left upper extremity was prepped and draped in the usual sterile fashion using Betadine solution. The previous wound VAC dressing was removed and the wound bed inspected. An excisional debridement was performed down to the
fascial level over an area of 9 x 4 cm. A 3 L bag of normal saline was used to irrigate the wound. There was no gross purulence or persistent necrotic tissue. Hemostasis was ensured and a negative pressure wound VAC was applied over the same
area, 9 x 4 cm. Patient tolerated the procedure well was performed out complication all counts were correct at the end the case
--- NOTE | 2023-12-14 15:33 | W.IMMPOSTOP ---
Surgical Immed Post Op Note
-
Primary Surgeon: MIKEL Disla MD
Assisting Surgeon:
Pre-op Diagnosis: Left dorsal wrist wound
Post-op Diagnosis: Same
Procedure Performed: Washout, debridement and wound vac placement left dorsal wrist
Anesthesia Type: GA
Specimen / Cultures: None
Estimated Blood Loss: Minimal
Complications: None
Operative Findings: No purulence or necrotic tissue, intraoperative Alejandro's test with doppler confirmed palmar arch flow with radial artery occluded
[2023-12-14 15:48] LABS: Glucose - Point of Care 86 mg/dl (70-99)
[2023-12-14] MEDS: DILAUDID 0.5 MG IV ×2 (15:51→16:38)
[2023-12-14] MEDS: TYLENOL PO (16:07)
[2023-12-14] MEDS: INVANZ 60 MG IV (17:13)
[2023-12-15 05:28] VITALS: BMI 31.3
[2023-12-15] MEDS: EFFEXOR 75 MG PO ×2 (06:37→12:26)
[2023-12-15] MEDS: WELLBUTRIN REGULAR RELEASE 75 MG PO ×2 (06:37→12:26)
[2023-12-15 08:19] VITALS: BP 107/55
[2023-12-15] MEDS: FOLVITE 2 MG PO (09:30)
[2023-12-15] MEDS: PACERONE 200 MG PO (09:30)
[2023-12-15] MEDS: TYLENOL 1000 MG PO ×3 (09:30→20:57)
[2023-12-15] MEDS: MIRALAX PO ×2 (09:30→09:37)
[2023-12-15] MEDS: LASIX PO ×2 (09:30→09:38)
[2023-12-15] MEDS: PEPCID 20 MG PO (09:31)
[2023-12-15] MEDS: LOPRESSOR 50 MG PO ×2 (09:32→20:58)
--- NOTE | 2023-12-15 09:38 | PTCARENOTE ---
patient refused lasix and mirlax
--- NOTE | 2023-12-15 14:04 | W.PN.HOSP.TC ---
Today's Communication/Plan
-
see A/P
Assessment / Plan
Assessment / Plan
IMPRESSION:
A 63 yo M with a PMHx of CHF, RA with recurrent flares, paroxysmal Afib on Eliquis, chronic pain with opioid dependance, HTN, HLD, and neuropathy admitted to the floor for toxic metabolic encephalopathy secondary to left wrist osteomyelitis.
Left wrist osteomyelitis.
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
Toxic metabolic encephalopathy improved
Hyponatremia
Conditions prior to admission:
MSSA bacteremia with bilateral wrist septic arthropathy
Paroxysmal atrial fibrillation.
Anticoagulation with Eliquis.
IDDM.
Chronic diastolic CHF.
Chronic back pain and narcotic dependence.
Rheumatoid arthritis, immunosuppressed on Remicade last infusion September 2023
Essential hypertension.
Dyslipidemia
Neuropathy.
Plan
Left wrist osteomyelitis
Status post multiple wound debridement
Completed course of vancomycin for MSSA.
Latest left wrist wound culture with Serratia.� Antibiotics consolidated to ertapenem as per ID
Left wrist wound dehiscence with bleeding
Holding Eliquis
Status post wound revision on 12/10
Continue wound VAC.
Discussed with plastic surgery.
Wound VAC to be continued
Wound washout (3rd revision) with a new wound VAC placement 12/14
Will be followed by skin flap on 12/18 with later elective fusion by orthopedics
Acute Anemia from blood loss -
12/08 - Hb - 8.3 to 12/09 - hb - 7.3, Received 1 unit of PRBC transfusion.
12/10 - Hb - 9. Low MCHC and high RDW.
12/13 - Hb -8.4, 12/14 - Hb 8.4 currently stable
Currently on ferrous gluconate.
tongue findings - likely secondary to anemia/ vitamin deficiency.
Toxic Metabolic encephalopathy - resolved
Hallucinations on 12/05 - resolved.
Not taking gabapentin and oxycodone (held for now).
CT head - 12/07 - mild diffuse cerebellar and cortical atrophy.
Other medications - venlafaxine and bupropion can also cause altered mental status.
Non - Blanching erythematous macular rash -
LE>UE, Skin biopsy done by surgery.
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 Follow up - outpatient dermatology.
Rash resolved.
Steroids initially weaned off to prednisone 5 mg daily, patient declined further treatment.�Prednisone discontinued on 12/10.
CHF and Paroxysml A fib -
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 continue home dose.
Rate controlled on metoprolol.
IDDM -
on sliding scale insulin. continue monitoring POC glucose and ISS.
Chronic Back pain -narcotic dependence.
On opiates prior to admission
Toradol seems to help in the past, ordered
Hyponatremia
new drift down, fluid restriction
history of severe RA with recurrent flare
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
DVT PPX - scd
Full code
Anticipated Discharge: > 48 hours
Subjective/Interval History
-
Date of Service: December 15, 2023
Objective Data
-
Vital Signs:
Vital Signs
Temp Pulse Resp BP Pulse Ox
36.9 C 75 16 107/55 93
12/15/23 08:19 12/15/23 09:32 12/15/23 08:19 12/15/23 09:32 12/15/23 08:19
I&O
12/14/23 12/15/23 12/16/23
06:59 06:59 06:59
Intake Total 1680 / 1680 760 / 760
Output Total 600 / 600 1750 / 1750
Balance 1080 / 1080 -990 / -990
Review of Systems
-
History Source: Patient
All other systems: Reviewed and negative
Physical Exam
-
General: Well Developed, Well Nourished, No Apparent Distress and Comfortable
HEENT: Normocephalic, Atraumatic and Moist Mucous Membranes
Respiratory: Clear to Auscultation and Non Labored Respirations; Negative Accessory Resp Muscle Use
Cardiac: Regular Rhythm and S1/S2
GI: Soft, Nontender, Nondistended and Normal Bowel Sounds
Skin: Other (RUE in wound dressing, connected to wound vac )
Neuro: Awake
Psych: Calm and Intact Judgement/Insight
Data Reviewed
-
Labs: Labs Reviewed by me
[2023-12-15 15:25] VITALS: BP 134/66
[2023-12-15] MEDS: INVANZ 60 MG IV (17:51)
[2023-12-15 20:56] VITALS: BP 111/54
[2023-12-15] MEDS: ULTRAM 25 MG PO (21:00)
[2023-12-15 23:15] VITALS: BP 135/74
[2023-12-16] MEDS: EFFEXOR 75 MG PO ×2 (05:56→12:30)
[2023-12-16] MEDS: WELLBUTRIN REGULAR RELEASE 75 MG PO ×2 (05:56→12:29)
[2023-12-16 06:00] VITALS: BMI 31.2
[2023-12-16 07:25] VITALS: BP 136/92
[2023-12-16 08:15] LABS: Hematocrit 27.7 % (39.0-52.0); Hemoglobin 8.8 g/dL (13.0-18.0); Mean Corp Hgb Conc. 31.8 g/dL (33.0-37.0); Mean Corpuscular Hgb 29.6 pg (27.0-31.0); Mean Corpuscular Volume 93.3 fL (80.0-94.0); Mean Platelet Volume 8.8 fL (7.4-10.4); Platelet Count 313 10^3/uL (130-400); Red Blood Cell Count 2.97 10^6/uL (4.70-6.10); Red Cell Dist. Width 15.9 % (11.5-14.5); White Blood Cell Count 9.9 10^3/uL (4.8-10.8)
[2023-12-16] MEDS: LASIX PO (08:22)
[2023-12-16] MEDS: MIRALAX PO (08:22)
[2023-12-16] MEDS: PEPCID 20 MG PO (08:23)
[2023-12-16] MEDS: FOLVITE 2 MG PO (08:23)
[2023-12-16] MEDS: LOPRESSOR 50 MG PO ×3 (08:23→20:43)
[2023-12-16] MEDS: TYLENOL 1000 MG PO ×3 (08:23→22:05)
[2023-12-16] MEDS: PACERONE 200 MG PO (08:24)
[2023-12-16 09:09] LABS: Blood Urea Nitrogen 11 mg/dl (9-20); Calcium 8.9 mg/dl (8.4-10.2); Carbon Dioxide 30 mmol/L (22-30); Chloride 102 mmol/L (98-107); Estimated Creatinine Clearance 108 ml/min; Glucose 102 mg/dl (70-99); Potassium 4.1 mmol/L (3.5-5.1); Sodium 137 mmol/L (135-145); eGFR > 60.00
--- NOTE | 2023-12-16 13:55 | W.PN.HOSP.TC ---
Today's Communication/Plan
-
see A/P
Assessment / Plan
Assessment / Plan
IMPRESSION:
A 63 yo M with a PMHx of CHF, RA with recurrent flares, paroxysmal Afib on Eliquis, chronic pain with opioid dependance, HTN, HLD, and neuropathy admitted to the floor for toxic metabolic encephalopathy secondary to left wrist osteomyelitis.
Left wrist osteomyelitis.
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
Toxic metabolic encephalopathy improved
Hyponatremia
Conditions prior to admission:
MSSA bacteremia with bilateral wrist septic arthropathy
Paroxysmal atrial fibrillation.
Anticoagulation with Eliquis.
IDDM.
Chronic diastolic CHF.
Chronic back pain and narcotic dependence.
Rheumatoid arthritis, immunosuppressed on Remicade last infusion September 2023
Essential hypertension.
Dyslipidemia
Neuropathy.
Plan
Left wrist osteomyelitis
Status post multiple wound debridement
Completed course of vancomycin for MSSA.
Latest left wrist wound culture with Serratia.� Antibiotics consolidated to ertapenem as per ID
Left wrist wound dehiscence with bleeding
Holding Eliquis
Status post wound revision on 12/10
Continue wound VAC.
Discussed with plastic surgery.
Wound VAC to be continued
Wound washout (3rd revision) with a new wound VAC placement 12/14
Will be followed by skin flap on 12/18 with later elective fusion by orthopedics
Acute Anemia from blood loss -
12/08 - Hb - 8.3 to 12/09 - hb - 7.3, Received 1 unit of PRBC transfusion.
12/10 - Hb - 9. Low MCHC and high RDW.
12/13 - Hb -8.4, 12/14 - Hb 8.4 currently stable
Currently on ferrous gluconate.
tongue findings - likely secondary to anemia/ vitamin deficiency.
Toxic Metabolic encephalopathy - resolved
Hallucinations on 12/05 - resolved.
Not taking gabapentin and oxycodone (held for now).
CT head - 12/07 - mild diffuse cerebellar and cortical atrophy.
Other medications - venlafaxine and bupropion can also cause altered mental status.
Non - Blanching erythematous macular rash -
LE>UE, Skin biopsy done by surgery.
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 Follow up - outpatient dermatology.
Rash resolved.
Steroids initially weaned off to prednisone 5 mg daily, patient declined further treatment.�Prednisone discontinued on 12/10.
CHF and Paroxysml A fib -
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 continue home dose.
Rate controlled on metoprolol.
IDDM -
on sliding scale insulin. continue monitoring POC glucose and ISS.
Chronic Back pain -narcotic dependence.
On opiates prior to admission
Toradol seems to help in the past, ordered
Hyponatremia
new drift down, fluid restriction
history of severe RA with recurrent flare
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
DVT PPX - scd
Full code
Anticipated Discharge: > 48 hours
Subjective/Interval History
-
Date of Service: December 16, 2023
Objective Data
-
Labs:
Laboratory Results
12/16/23
08:01
WBC 9.9
Hgb 8.8 L
Hct 27.7 L
Plt Count 313
Sodium 137
Potassium 4.1
Chloride 102
Carbon Dioxide 30
BUN 11
Creatinine 0.8
Glucose 102 H
Calcium 8.9
Vital Signs:
Vital Signs
Temp Pulse Resp BP Pulse Ox
36.9 C 79 16 136/92 96
12/16/23 07:25 12/16/23 08:24 12/16/23 07:25 12/16/23 08:24 12/16/23 08:38
I&O
12/15/23 12/16/23 12/17/23
06:59 06:59 06:59
Intake Total 760 / 760 1350 / 1350
Output Total 1750 / 1750 1000 / 1000
Balance -990 / -990 350 / 350
Review of Systems
-
History Source: Patient
All other systems: Reviewed and negative
Physical Exam
-
General: Well Developed, Well Nourished, No Apparent Distress and Comfortable
HEENT: Normocephalic, Atraumatic and Moist Mucous Membranes
Respiratory: Clear to Auscultation and Non Labored Respirations; Negative Accessory Resp Muscle Use
Cardiac: Regular Rhythm and S1/S2
GI: Soft, Nontender, Nondistended and Normal Bowel Sounds
Skin: Other (RUE in wound dressing, connected to wound vac )
Neuro: Awake
Psych: Calm and Intact Judgement/Insight
Data Reviewed
-
Labs: Labs Reviewed by me
[2023-12-16 15:14] VITALS: BP 131/90
[2023-12-16] MEDS: INVANZ 60 MG IV (17:02)
[2023-12-16 22:57] VITALS: BP 131/74
[2023-12-17 03:34] LABS: Cryoglobulin NEG 72Hour (NEG 72Hour)
[2023-12-17 06:00] VITALS: BMI 31.4
[2023-12-17] MEDS: EFFEXOR 75 MG PO ×2 (06:01→14:20)
[2023-12-17] MEDS: WELLBUTRIN REGULAR RELEASE 75 MG PO ×2 (06:01→14:20)
[2023-12-17 06:15] LABS: Hemoglobin 8.7 g/dL (13.0-18.0); Mean Corp Hgb Conc. 31.1 g/dL (33.0-37.0); Mean Corpuscular Volume 93.3 fL (80.0-94.0); Mean Platelet Volume 9.1 fL (7.4-10.4); Platelet Count 307 10^3/uL (130-400); Red Cell Dist. Width 15.8 % (11.5-14.5)
[2023-12-17 06:28] LABS: Blood Urea Nitrogen 10 mg/dl (9-20); Calcium 8.5 mg/dl (8.4-10.2); Carbon Dioxide 30 mmol/L (22-30); Chloride 108 mmol/L (98-107); Estimated Creatinine Clearance 96 ml/min; Glucose 93 mg/dl (70-99); Potassium 4.1 mmol/L (3.5-5.1); Sodium 138 mmol/L (135-145); eGFR > 60.00
[2023-12-17 07:55] VITALS: BP 142/73
[2023-12-17] MEDS: TYLENOL 1000 MG PO ×3 (10:14→22:18)
[2023-12-17] MEDS: FOLVITE 2 MG PO (10:14)
[2023-12-17] MEDS: PEPCID 20 MG PO (10:15)
[2023-12-17] MEDS: PACERONE 200 MG PO (10:16)
[2023-12-17] MEDS: LOPRESSOR 50 MG PO ×2 (10:16→20:43)
[2023-12-17] MEDS: LASIX PO (10:21)
[2023-12-17] MEDS: MIRALAX PO (10:21)
--- NOTE | 2023-12-17 14:28 | W.PN.ID1 ---
Date of Service
Date of Service: December 17, 2023
Today's Communication
stable for dc from ID perspective
Assessment / Plan
Osteomyelitis L wrist due to Serratia and possibly MSSA
Osteomyelitis R wrist due to MSSA - resolving
- osteomyelitis R wrist - MSSA
- osteomyelitis of the L wrist - Serratia (MSSA likely as well)
- follow 12/06 OR cultures - neg to date
- appreciate orthopedics & plastics
- has PICC
- ESR and CRP in the AM for baseline
- Continue ertapenem - through 01/01/24; will likely continue bactrim 1 DS tab BID another several months in the outpatient setting - decisions pending course including inflammatory markers and healing
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
Chief Complaint
-: Other (rash, osteo)
Subjective / Review of Systems
afebrile
bp stable
without leukocytosis
cr stable
Vital Signs / Physical Exam
Vital Signs
Vital Signs
Temp Pulse Resp BP Pulse Ox
98.2 F 80 16 142/73 94
12/17/23 07:55 12/17/23 10:16 12/17/23 07:55 12/17/23 10:16 12/17/23 07:55
Physical Exam
Constitutional: No Acute Distress
Cardiovascular: Regular Rate
Pulmonary: Symmetric and Non Labored
Gastrointestinal: Non Tender
Skin: Dry; Negative Rash or Jaundice
Lines: PICC
Objective Data
Lab Data
Lab Results
12/17/23 05:42
12/17/23 05:42
ESR 70 mm/hour (0-20) H 12/05/23 14:50
PT 14.7 Sec (11.4-14.6) H 12/09/23 18:05
INR 1.13 12/09/23 18:05
APTT 48.2 Sec (23.4-35.0) H 12/09/23 18:05
Estimated Creat Clear 96 ml/min 12/17/23 05:42
Total Bilirubin 0.5 mg/dl (0.2-1.3) 12/05/23 14:50
AST 34 U/L (17-59) 12/05/23 14:50
ALT 17 U/L (0-50) 12/05/23 14:50
Alkaline Phosphatase 120 U/L (38-126) 12/05/23 14:50
C-Reactive Protein 118.40 mg/L (0.0-10.00) H 12/05/23 14:50
Most recent labs reviewed.
Micro Results:
12/06/23 20:55 Wound Culture - Final
Hand - Left No growth
Gram Stain - Final
12/06/23 20:55 Anaerobic Culture - Final
Wound-Deep NO ANAEROBES ISOLATED
12/05/23 18:03 Blood Culture - Final
Blood/Venous No Growth - Final Report
12/05/23 14:50 Blood Culture - Final
Blood/Venous No Growth - Final Report
12/05/23 18:03 MRSA Screen - Final
Nose No Methicillin Resistant Staphylococcus aureus isolated.
--- NOTE | 2023-12-17 14:34 | W.PN.HOSP.TC ---
Addendum entered and electronically signed by Efrain Dutton MD 12/17/23 16:11:
Patient seen and examined
Agree with resident assessment
Continue wound VAC.
For skin flap tomorrow.
Has been off anticoagulation with Eliquis.
Continue IV antibiotics
Original Note:
Today's Communication/Plan
-
- Continue Ertapenem
- NPO after 10pm for surgery
- Hold Eliquis
- Advance diet following surgery
Assessment / Plan
Assessment / Plan
IMPRESSION:
A 63 yo M with a PMHx of CHF, RA with recurrent flares, paroxysmal Afib on Eliquis, chronic pain with opioid dependance, HTN, HLD, and neuropathy admitted to the floor for toxic metabolic encephalopathy secondary to left wrist osteomyelitis.
Left wrist osteomyelitis.
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
Toxic metabolic encephalopathy improved
Hyponatremia
Conditions prior to admission:
MSSA bacteremia with bilateral wrist septic arthropathy
Paroxysmal atrial fibrillation.
Anticoagulation with Eliquis.
IDDM.
Chronic diastolic CHF.
Chronic back pain and narcotic dependence.
Rheumatoid arthritis, immunosuppressed on Remicade last infusion September 2023
Essential hypertension.
Dyslipidemia
Neuropathy.
Plan
Left wrist osteomyelitis
Status post multiple wound debridement
Completed course of vancomycin for MSSA.
Latest left wrist wound culture with Serratia.� Antibiotics consolidated to ertapenem as per ID
Left wrist wound dehiscence with bleeding
Holding Eliquis
Status post wound revision on 12/10
Continue wound VAC.
Discussed with plastic surgery.
Wound VAC to be continued
Wound washout (3rd revision) with a new wound VAC placement 12/14
Will be followed by skin flap on 12/18 with later elective fusion by orthopedics
Acute Anemia from blood loss -
12/08 - Hb - 8.3 to 1/14 - hb - 7.3, Received 1 unit of PRBC transfusion.
12/10 - Hb - 9. Low MCHC and high RDW.
12/13 - Hb -8.4, 12/14 - Hb 8.4
12/17 - Hb - 8.7 currently stable
Currently on ferrous gluconate.
tongue findings - likely secondary to anemia/ vitamin deficiency - resolved.
Toxic Metabolic encephalopathy - resolved
Hallucinations on 12/05 - resolved.
Not taking gabapentin and oxycodone (held for now).
CT head - 12/07 - mild diffuse cerebellar and cortical atrophy.
Other medications - venlafaxine and bupropion can also cause altered mental status.
Non - Blanching erythematous macular rash - Resolved.
LE>UE, Skin biopsy done by surgery.
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 Follow up - outpatient dermatology.
Steroids initially weaned off to prednisone 5 mg daily, patient declined further treatment.�Prednisone discontinued on 12/10.
CHF and Paroxysml A fib -
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 continue home dose.
Rate controlled on metoprolol.
IDDM -
on sliding scale insulin. continue monitoring POC glucose and ISS.
Chronic Back pain -narcotic dependence.
On opiates prior to admission
Toradol seems to help in the past, ordered
Hyponatremia
new drift down, fluid restriction
history of severe RA with recurrent flare
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
DVT PPX - scd
Full code
Anticipated Discharge: > 48 hours
Subjective/Interval History
-
Date of Service: December 17, 2023
- Reports no significant pain today.
- Denies CP, SOB, Swelling of feet.
Objective Data
-
Labs:
Laboratory Results
12/17/23
05:42
WBC 9.0
Hgb 8.7 L
Hct 28.0 L
Plt Count 307
Sodium 138
Potassium 4.1
Chloride 108 H
Carbon Dioxide 30
BUN 10
Creatinine 0.9
Glucose 93
Calcium 8.5
Vital Signs:
Vital Signs
Temp Pulse Resp BP Pulse Ox
98.2 F 80 16 142/73 94
12/17/23 07:55 12/17/23 10:16 12/17/23 07:55 12/17/23 10:16 12/17/23 07:55
I&O
12/16/23 12/17/23 12/18/23
06:59 06:59 06:59
Intake Total 1350 / 1350 1320 / 1320
Output Total 1000 / 1000 300 / 300
Balance 350 / 350 1020 / 1020
Review of Systems
-
History Source: Patient
All other systems: Reviewed and negative
Physical Exam
-
General: No Apparent Distress and Comfortable
HEENT: Normocephalic and Atraumatic
Respiratory: Clear to Auscultation and Other (no wheezes, rales and ronchi)
Cardiac: Regular Rhythm and S1/S2
GI: Soft, Nontender, Nondistended and Normal Bowel Sounds
Musculoskeletal: No Edema and Other (right upper extremity, wound dressing clean and intact with wound VAC in place. )
Skin: Warm
Neuro: AO x 3
Psych: Calm
[2023-12-17 14:55] VITALS: BP 144/89; PULSE 73; O2SAT 97
--- NOTE | 2023-12-17 15:37 | CM ---
Patient for planned surgery tomorrow per chart review. Following surgery patient will benefit from PT/OT assessment and SNF referral. CM will follow for discharge planning needs.
Plan; SNF referral following surgery
[2023-12-17 15:55] VITALS: BP 124/70
[2023-12-17] MEDS: INVANZ 60 MG IV (18:08)
[2023-12-17 23:16] VITALS: BP 121/70
[2023-12-18] VITALS (11 sets, daily range): BP systolic 117–150; BP diastolic 59–90; BMI 30.1
--- NOTE | 2023-12-18 03:50 | PTCARENOTE ---
PT straight cath this morning for >800 cc retention with 900 cc output of clear yellow urine, Pt absolutely refuses kern cath despite being straight cath every shift, educated on risk of infection from frequent straight cath, continues to refuse.
[2023-12-18 05:40] LABS: % Basophils 0.5 % (0-2); % Eosinophils 6.5 % (0-6); % Immature Granulocytes 0.9 % (0-0.5); % Lymphocytes 18.5 % (20.5-51.1); % Monocytes 12.7 % (1.7-9.3); % Neutrophils 60.9 % (42.2-75.2); Absolute Basophils 0.1 10^3/uL (0-0.2); Absolute Eosinophils 0.6 10^3/uL (0-0.7); Absolute Immature Granulocytes 0.1 10^3/uL (0-0.05); Absolute Lymphocytes 1.7 10^3/uL (1.2-3.4); Absolute Monocytes 1.2 10^3/uL (0.1-0.6); Absolute Neutrophils 5.6 10^3/uL (1.4-6.5); Hemoglobin 8.7 g/dL (13.0-18.0); Mean Corp Hgb Conc. 32.2 g/dL (33.0-37.0); Mean Corpuscular Hgb 29.6 pg (27.0-31.0); Mean Corpuscular Volume 91.8 fL (80.0-94.0); Mean Platelet Volume 8.9 fL (7.4-10.4); Nucleated Red Blood Cells % 0 % (-); Platelet Count 296 10^3/uL (130-400); Red Blood Cell Count 2.94 10^6/uL (4.70-6.10); Red Cell Dist. Width 15.9 % (11.5-14.5); White Blood Cell Count 9.2 10^3/uL (4.8-10.8)
[2023-12-18] MEDS: WELLBUTRIN REGULAR RELEASE PO (05:40)
[2023-12-18] MEDS: EFFEXOR PO (05:40)
[2023-12-18 06:04] LABS: Blood Urea Nitrogen 13 mg/dl (9-20); Calcium 8.4 mg/dl (8.4-10.2); Carbon Dioxide 28 mmol/L (22-30); Chloride 108 mmol/L (98-107); Estimated Creatinine Clearance 86 ml/min; Glucose 93 mg/dl (70-99); Potassium 4.1 mmol/L (3.5-5.1); Sodium 138 mmol/L (135-145); eGFR > 60.00
[2023-12-18 06:22] LABS: Erythrocyte Sed Rate 73 mm/hour (0-20)
[2023-12-18] MEDS: WELLBUTRIN REGULAR RELEASE 75 MG PO ×2 (06:30→14:33)
[2023-12-18] MEDS: EFFEXOR 75 MG PO ×2 (06:30→14:34)
[2023-12-18] MEDS: ZOFRAN 4 MG IV ×2 (06:31→18:15)
--- NOTE | 2023-12-18 06:48 | PTCARENOTE ---
Pt transferring to OR for a scheduled skin flap to left FA, report called to OR nurse. 0600 meds given with small sips of clear despite the NPO order d/t patient and pt's request, MACARIO an call made aware.
--- NOTE | 2023-12-18 07:30 | OR.RPT ---
Operative Report
Operative Report
Surgeon: MIKEL Disla MD
Preoperative diagnosis: Left dorsal wrist wound, septic arthritis
Postoperative diagnosis: Same
Procedure:
1. Reverse radial forearm adipofascial pricing clerk flap, left
2. Split-thickness skin grafting to the left dorsal hand 13 x 5 cm
3. Excisional debridement to bone, 9 x 4 cm, left dorsal wrist
Anesthesia: General
Complications: None
EBL: 30 cc
Indications for procedure: Patient is a 63-year-old male known to me having undergone multiple I&D's of the left dorsal wrist for septic arthritis. He was left with bony loss as well as soft tissue loss over the joint space on the dorsum of his
left wrist. He is maintained on IV antibiotics and followed by infectious disease. Severity of the defect was reviewed at length including the potential for amputation as well as poor residual hand function. Given the extent of the soft tissue
loss of the dorsum of the wrist local options are limited in the healing by secondary intent is not feasible. As such I reviewed local flap options as well as microsurgical free flap options for reconstruction. Patient underwent a preoperative CTA
to confirm the patency of the palmar arch and was found that the radial artery was occluded at the level of the wrist. As such a plan was made for a pricing clerk based flap from the radial artery utilizing reverse flow. This would be taken as an
adipose and fascial flap only, sparing the radial artery. The necessity of skin grafting the donor site as well as the flaps recipient site was reviewed at length. Donor site would be right groin full-thickness and right thigh if
partial-thickness. Patient is at the bedside for all communications. They understand the risks of the procedure including flap failure, infection, graft failure, sensory changes as well as compromise to the perfusion of the hand. Partial
complete digital necrosis was a real possibility but unlikely given that he was ulnar dominant and had a prior radial artery occlusion.
Procedure in detail:
Patient was identified in the preoperative area and the surgical site was confirmed to be the left wrist and right groin or thigh. Consents were confirmed and all questions were answered. Patient was taken back to the operating placed upon the
table. A hand table was affixed to the left side of the table. Care was taken to identify the course of the radial artery as well as associated perforators along the forearm and these were marked out accordingly. The relative positions of the
brachial radialis flexor carpi radialis were also demarcated as well as a 4 cm with flap planned along the length of the radial artery. The described anatomical distribution of perforators was marked out an area 2 to 6 mm years proximal to the
radial styloid on the volar aspect of the wrist overlying the radial artery. A brachial arm tourniquet was placed and set to 250. Patient's hand was prepped and draped in usual sterile fashion using Betadine solution. Timeout for for patient
safety was performed was confirmed preoperative antibiotics have been administered and bilateral SCDs were placed the procedure began by making a curvilinear incision with a 15 blade along the length of the radial artery to the antecubital fossa.
Thin skin flaps were raised ensuring to maintain the subdermal plexus. Approximately large superficial veins were ligated to allow the cephalic vein to be harvested along with lateral antebrachial cutaneous nerve as part of the flap. The radial
artery and venae comitantes were identified proximally underneath the right brachial radialis. The fascia was incised being sure to keep the FCR and brachioradialis peritenon intact. The adipose fascial flap was raised even the radial artery down
in the radial artery perforators were identified and proximal to distal along the intermuscular septum dissection continued subfascially from proximal to distal until an appropriate arc of rotation been achieved for full coverage of the wound. This
left intact healthy flap base without skeletonizing the known location of the distal radial artery perforators. Doppler was used to confirm arterial inflow into the flap upon elevation as well as with translocation into the dorsal hand wound. An
incision was made to connect the dorsal hand wound with the volar aspect. Upon raising the flap flow through the ulnar artery was confirmed with the tourniquet down ensuring perfusion remained to the hand. Meticulous hemostasis was ensured and a
Levi drain was left in the donor site. An excisional debridement down to bone using the rongeur was performed and the 9 x 4 cm wound of the left dorsal wrist. Punctate bleeding was identified and bone stock had good integrity a Lavalette was placed
in the deep space and the fascial flap was inset into the dorsal hand. This was sutured in place with a series of running 4-0 plain gut. This was done under no tension. After inset, Doppler signal was again confirmed. The donor site was closed
with a series of 3-0 Vicryl followed by 4-0 Monocryl. The flap base was not tunneled and was left exposed to be skin graft along with the dorsum of the wrist. This area was marked out and measured to be 13 x 5 cm. An equivalent area was marked
out over the right side. 1% lidocaine with epinephrine, 30 cc, was injected into the right thigh prior to harvest. Split-thickness skin graft was harvested from the right thigh without complication. This was then affixed to the fascial flap with
a series of 4-0 plain gut sutures. A series of pie crusting incisions were made in the graft to allow for fluid effusion. Xeroform with antibiotic ointment and dry gauze bolster was applied with a lightly compressive soft dressing and volar
splint. Tourniquet time was less than 60 minutes in total. Both the flap and the hand had evidence of good perfusion at the conclusion of the surgery all counts were correct. The surgery was performed without complication the patient tolerated
well. He was extubated taken the PACU for further care. All counts were correct at the end the case
[2023-12-18 11:04] LABS: Glucose - Point of Care 163 mg/dl (70-99)
[2023-12-18] MEDS: DILAUDID 0.5 MG IV (12:08)
--- NOTE | 2023-12-18 12:32 | PTCARENOTE ---
Patient had been in OR for surgery since this morning. Report received from PACU (reversed radial forearm flap performed with BART drain). AM meds not given. at bedside, updated. Awaiting patient.
--- NOTE | 2023-12-18 13:15 | W.PN.HOSP.TC ---
Addendum entered and electronically signed by Efrain Dutton MD 12/18/23 17:01:
Patient seen and examined
Discussed with resident
Status post skin flap.
BART P drain in place.
Wound VAC off.
Continue monitoring.
Off anticoagulation
Continue antibiotics as per ID
Monitor hemoglobin
Original Note:
Today's Communication/Plan
-
- Continue IV antibiotics
- Pain medications
- PT/OT assessment
- Advance diet as tolerated
Continue hold on eliquis under further treatment.
Assessment / Plan
Assessment / Plan
IMPRESSION:
A 63 yo M with a PMHx of CHF, RA with recurrent flares, paroxysmal Afib on Eliquis, chronic pain with opioid dependance, HTN, HLD, and neuropathy admitted to the floor for toxic metabolic encephalopathy secondary to left wrist osteomyelitis.
Left wrist osteomyelitis.
Rash secondary to local classic vasculitis, resolved.
Toxic metabolic encephalopathy resolved
Hyponatremia - resolved
Conditions prior to admission:
MSSA bacteremia with bilateral wrist septic arthropathy
Paroxysmal atrial fibrillation.
Anticoagulation with Eliquis.
IDDM.
Chronic diastolic CHF.
Chronic back pain and narcotic dependence.
Rheumatoid arthritis, immunosuppressed on Remicade last infusion September 2023
Essential hypertension.
Dyslipidemia
Neuropathy.
Plan
Left wrist osteomyelitis
Status post multiple wound debridement
Completed course of vancomycin for MSSA.
Latest left wrist wound culture with Serratia.
Stable to discharge from ID perspective. Continue ertapenem - through 01/01/24; will likely continue bactrim 1 DS tab BID another several months in the outpatient setting - decisions pending course including inflammatory markers and healing.
Left wrist wound dehiscence with bleeding
Holding Eliquis until further information from plastic surgery.
Status post wound revision on 12/10
Discussed with plastic surgery.
Wound washout (3rd revision) with a new wound VAC placement 12/14
skin flap done today with BART drain- 12/18. Wound VAC removed.
later elective fusion by orthopedics.
Plan discharge based on ortho/Plastic surgeon's plan.
Acute Anemia from blood loss -
12/08 - Hb - 8.3 to 12/09 - hb - 7.3, Received 1 unit of PRBC transfusion.
12/10 - Hb - 9. Low MCHC and high RDW.
12/13 - Hb -8.4, 12/14 - Hb 8.4
12/17 - Hb - 8.7 currently stable
Currently on ferrous gluconate.
tongue findings - likely secondary to anemia/ vitamin deficiency - resolved.
Toxic Metabolic encephalopathy - resolved
Hallucinations on 12/05 - resolved.
Not taking gabapentin and oxycodone (held for now).
CT head - 12/07 - mild diffuse cerebellar and cortical atrophy.
Other medications - venlafaxine and bupropion can also cause altered mental status.
Non - Blanching erythematous macular rash - Resolved.
LE>UE, Skin biopsy done by surgery.
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 Follow up - outpatient dermatology.
Steroids initially weaned off to prednisone 5 mg daily, patient declined further treatment.�Prednisone discontinued on 12/10.
CHF and Paroxysml A fib -
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 continue home dose.
Rate controlled on metoprolol.
IDDM -
on sliding scale insulin. continue monitoring POC glucose and ISS.
Chronic Back pain -narcotic dependence.
On opiates prior to admission
Toradol seems to help in the past, ordered
Hyponatremia - resolved.
Serum sodium - 12/18 - 138.
history of severe RA with recurrent flare
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
DVT PPX - scd
PT/OT assessment
Full code
Anticipated Discharge: 24 - 48 hours
Subjective/Interval History
-
Date of Service: December 18, 2023
Patient reports feeling tired.
pain 2/10.
On 3l Nasal cannula flow
Objective Data
-
Labs:
Laboratory Results
12/18/23
05:24
WBC 9.2
Hgb 8.7 L
Hct 27.0 L
Plt Count 296
Sodium 138
Potassium 4.1
Chloride 108 H
Carbon Dioxide 28
BUN 13
Creatinine 1.0
Glucose 93
Calcium 8.4
Vital Signs:
Vital Signs
Temp Pulse Resp BP Pulse Ox
98.5 F 86 16 143/64 97
12/18/23 12:43 12/18/23 12:43 12/18/23 12:43 12/18/23 12:43 12/18/23 12:43
I&O
12/17/23 12/18/23 12/19/23
06:59 06:59 06:59
Intake Total 1320 / 1320 150 / 150
Output Total 300 / 300
Balance 1020 / 1020 150 / 150
Review of Systems
-
History Source: Patient
All other systems: Reviewed and negative
Physical Exam
-
General: No Apparent Distress and Comfortable
HEENT: Normocephalic and Atraumatic
Respiratory: Clear to Auscultation and Other (No wheezes, rales and ronchi)
Cardiac: Regular Rhythm and S1/S2
GI: Soft, Nontender, Nondistended and Normal Bowel Sounds
Musculoskeletal: Other (Left arm, dressing intact, with a new BART drain. Collection - sero sanginous.)
Skin: Warm
Neuro: AO x 3
--- NOTE | 2023-12-18 13:29 | W.IMMPOSTOP ---
Surgical Immed Post Op Note
-
Primary Surgeon: MIKEL Disla MD
Assisting Surgeon:
Pre-op Diagnosis: Left dorsal wrist wound
Post-op Diagnosis: Left dorsal wrist wound status post flap reconstruction
Procedure Performed: Left reverse radial artery Adipost fascial client application support specialist flap, debridement of bone, split-thickness skin graft
Anesthesia Type: General
Specimen / Cultures: None
Estimated Blood Loss: 30 cc
Complications: None
Operative Findings: Well-perfused hand and flap at the conclusion of the case
[2023-12-18] MEDS: FOLVITE 2 MG PO (14:33)
[2023-12-18] MEDS: PEPCID 20 MG PO (14:33)
[2023-12-18] MEDS: PACERONE 200 MG PO (14:34)
[2023-12-18] MEDS: LOPRESSOR 50 MG PO (14:35)
[2023-12-18] MEDS: TYLENOL 1000 MG PO ×2 (14:36→21:30)
[2023-12-18] MEDS: MIRALAX PO (14:37)
[2023-12-18] MEDS: LASIX PO (14:37)
--- NOTE | 2023-12-18 15:31 | W.PN.ID1 ---
Date of Service
Date of Service: December 18, 2023
Today's Communication
Continue ertapenem - through 01/01/24; will likely continue bactrim 1 DS tab BID another several months in the outpatient setting - decisions pending course including inflammatory markers and healing
Assessment / Plan
Osteomyelitis L wrist due to Serratia and possibly MSSA
Osteomyelitis R wrist due to MSSA - resolving
- osteomyelitis R wrist - MSSA
- osteomyelitis of the L wrist - Serratia (MSSA likely as well)
- follow 12/06 OR cultures - neg to date
- appreciate orthopedics & plastics
- has PICC
- ESR and CRP in the AM for baseline
- Continue ertapenem - through 01/01/24; will likely continue bactrim 1 DS tab BID another several months in the outpatient setting - decisions pending course including inflammatory markers and healing
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
Chief Complaint
-: Other (rash, osteo)
Subjective / Review of Systems
afebrile
bp stable
wbc nomral, cr stable
post op note reviewed
Vital Signs / Physical Exam
Vital Signs
Vital Signs
Temp Pulse Resp BP Pulse Ox
98.7 F 77 18 143/73 97
12/18/23 14:56 12/18/23 14:56 12/18/23 14:56 12/18/23 14:56 12/18/23 14:56
Physical Exam
Constitutional: No Acute Distress
Cardiovascular: Regular Rate and S1/S2; Negative Murmur or Rub
Pulmonary: Clear and Symmetric; Negative Wheezes or Rales
Gastrointestinal: Soft, Non Tender, Non Distended and Normal Bowel Sounds
Skin: Warm and Dry; Negative Rash or Jaundice
Objective Data
Lab Data
Lab Results
12/18/23 05:24
12/18/23 05:24
ESR 73 mm/hour (0-20) H 12/18/23 05:24
PT 14.7 Sec (11.4-14.6) H 12/09/23 18:05
INR 1.13 12/09/23 18:05
APTT 48.2 Sec (23.4-35.0) H 12/09/23 18:05
Estimated Creat Clear 86 ml/min 12/18/23 05:24
Total Bilirubin 0.5 mg/dl (0.2-1.3) 12/05/23 14:50
AST 34 U/L (17-59) 12/05/23 14:50
ALT 17 U/L (0-50) 12/05/23 14:50
Alkaline Phosphatase 120 U/L (38-126) 12/05/23 14:50
C-Reactive Protein 39.10 mg/L (0.0-10.00) H 12/18/23 05:24
Most recent labs reviewed.
Micro Results:
12/06/23 20:55 Wound Culture - Final
Hand - Left No growth
Gram Stain - Final
12/06/23 20:55 Anaerobic Culture - Final
Wound-Deep NO ANAEROBES ISOLATED
12/05/23 18:03 Blood Culture - Final
Blood/Venous No Growth - Final Report
12/05/23 14:50 Blood Culture - Final
Blood/Venous No Growth - Final Report
12/05/23 18:03 MRSA Screen - Final
Nose No Methicillin Resistant Staphylococcus aureus isolated.
--- NOTE | 2023-12-18 16:05 | CM ---
Reviewed the chart notes. Patient to OR today for left reverse radial artery Adipost fascial medication coordinator flap, debridement of bone, split-thickness skin graft. Per ID, Continue ertapenem - through 01/01/24; will likely continue bactrim 1 DS tab BID
another several months in the outpatient setting. CM continues to be available to patient/family and is monitoring medical plan for needs at discharge.
Plan: Discharge to SNF/rehab when medically stable. Precert will be required. [facility] first choice.
[2023-12-18] MEDS: TYLENOL PO (17:53)
[2023-12-18] MEDS: INVANZ 60 MG IV (17:53)
[2023-12-19] MEDS: LOPRESSOR 50 MG PO ×3 (00:13→20:38)
[2023-12-19 05:26] LABS: % Basophils 0.2 % (0-2); % Immature Granulocytes 0.8 % (0-0.5); % Lymphocytes 11.4 % (20.5-51.1); % Monocytes 10.3 % (1.7-9.3); % Neutrophils 77.3 % (42.2-75.2); Absolute Immature Granulocytes 0.1 10^3/uL (0-0.05); Absolute Lymphocytes 1.1 10^3/uL (1.2-3.4); Absolute Neutrophils 7.8 10^3/uL (1.4-6.5); Hematocrit 27.2 % (39.0-52.0); Hemoglobin 8.7 g/dL (13.0-18.0); Mean Corpuscular Hgb 29.4 pg (27.0-31.0); Mean Corpuscular Volume 91.9 fL (80.0-94.0); Mean Platelet Volume 9.2 fL (7.4-10.4); Nucleated Red Blood Cells % 0 % (-); Platelet Count 311 10^3/uL (130-400); Red Blood Cell Count 2.96 10^6/uL (4.70-6.10); Red Cell Dist. Width 15.9 % (11.5-14.5)
[2023-12-19] MEDS: EFFEXOR 75 MG PO ×2 (05:48→13:02)
[2023-12-19] MEDS: WELLBUTRIN REGULAR RELEASE 75 MG PO ×2 (05:48→13:02)
[2023-12-19 05:56] LABS: Blood Urea Nitrogen 16 mg/dl (9-20); Calcium 8.3 mg/dl (8.4-10.2); Carbon Dioxide 27 mmol/L (22-30); Chloride 104 mmol/L (98-107); Estimated Creatinine Clearance 94 ml/min; Glucose 139 mg/dl (70-99); Potassium 4.2 mmol/L (3.5-5.1); Sodium 140 mmol/L (135-145); eGFR > 60.00
[2023-12-19 06:00] VITALS: BMI 30.2
[2023-12-19 07:17] VITALS: BP 108/64
--- NOTE | 2023-12-19 07:35 | WOUNDNOTE ---
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 t/c Spoke with Char Cotton who will make sure the [facility] vac pump is placed in the soiled utility room
for picker machine operator. Char confirmed patient's vac is off and in patient's room.
[2023-12-19] MEDS: PACERONE 200 MG PO (09:12)
[2023-12-19] MEDS: PEPCID 20 MG PO (09:12)
[2023-12-19] MEDS: FOLVITE 2 MG PO (09:12)
[2023-12-19] MEDS: TYLENOL 1000 MG PO ×3 (09:12→21:59)
[2023-12-19] MEDS: MIRALAX PO (09:13)
[2023-12-19] MEDS: LASIX PO (09:13)
[2023-12-19] MEDS: ZOFRAN 4 MG IV (09:14)
--- NOTE | 2023-12-19 09:39 | W.PN.HOSP.TC ---
Addendum entered and electronically signed by Efrain Dutton MD 12/19/23 17:59:
Patient seen and examined
Discussed with resident
Discussed with surgery
Continue wound care (BART drain remains in place
Continue antibiotics.
Off anticoagulation
Physical therapy evaluation
Original Note:
Today's Communication/Plan
-
- Continue PT and OT
- Assess for pain periodically,
- Tramadol PRN as indicated.
Assessment / Plan
Assessment / Plan
IMPRESSION:
A 63 yo M with a PMHx of CHF, RA with recurrent flares, paroxysmal Afib on Eliquis, chronic pain with opioid dependance, HTN, HLD, and neuropathy admitted to the floor for toxic metabolic encephalopathy secondary to left wrist osteomyelitis.
Left wrist osteomyelitis.
Rash secondary to local classic vasculitis, resolved.
Toxic metabolic encephalopathy resolved
Hyponatremia - resolved
Conditions prior to admission:
MSSA bacteremia with bilateral wrist septic arthropathy
Paroxysmal atrial fibrillation.
Anticoagulation with Eliquis.
IDDM.
Chronic diastolic CHF.
Chronic back pain and narcotic dependence.
Rheumatoid arthritis, immunosuppressed on Remicade last infusion September 2023
Essential hypertension.
Dyslipidemia
Neuropathy.
Plan
Left wrist osteomyelitis
Status post multiple wound debridement
Completed course of vancomycin for MSSA.
Latest left wrist wound culture with Serratia.
Stable to discharge from ID perspective. Continue ertapenem - through 01/01/24; will likely continue bactrim 1 DS tab BID another several months in the outpatient setting - decisions pending course including inflammatory markers and healing.
Left wrist wound dehiscence with bleeding
Holding Eliquis until further information from plastic surgery.
Status post wound revision on 12/10
Discussed with plastic surgery.
Wound washout (3rd revision) with a new wound VAC placement 12/14
skin flap done today with BART drain- 12/18. Wound VAC removed.
later elective fusion by orthopedics.
Plan discharge based on ortho/Plastic surgeon's plan.
Acute Anemia from blood loss -
12/08 - Hb - 8.3 to 12/09 - hb - 7.3, Received 1 unit of PRBC transfusion.
12/10 - Hb - 9. Low MCHC and high RDW.
12/13 - Hb -8.4, 12/14 - Hb 8.4
12/17 - Hb - 8.7 currently stable
Currently on ferrous gluconate.
tongue findings - likely secondary to anemia/ vitamin deficiency - resolved.
Toxic Metabolic encephalopathy - resolved
Hallucinations on 12/05 - resolved.
Not taking gabapentin and oxycodone (held for now).
CT head - 12/07 - mild diffuse cerebellar and cortical atrophy.
Other medications - venlafaxine and bupropion can also cause altered mental status.
Non - Blanching erythematous macular rash - Resolved.
LE>UE, Skin biopsy done by surgery.
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 Follow up - outpatient dermatology.
Steroids initially weaned off to prednisone 5 mg daily, patient declined further treatment.�Prednisone discontinued on 12/10.
CHF and Paroxysml A fib -
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 continue home dose.
Rate controlled on metoprolol.
IDDM -
on sliding scale insulin. continue monitoring POC glucose and ISS.
Chronic Back pain -narcotic dependence.
On opiates prior to admission
Toradol seems to help in the past, ordered
Hyponatremia - resolved.
Serum sodium - 12/18 - 138.
history of severe RA with recurrent flare
On Remicade STEPDOWN NURSE last infusion September 2023
DVT PPX - scd
PT/OT assessment
Full code
Anticipated Discharge: > 48 hours
Subjective/Interval History
-
Date of Service: December 19, 2023
- Pain much worse today, at the site of BART drain suture.
- BART drain intact.
Objective Data
-
Labs:
Laboratory Results
12/19/23
05:07
WBC 10.0
Hgb 8.7 L
Hct 27.2 L
Plt Count 311
Sodium 140
Potassium 4.2
Chloride 104
Carbon Dioxide 27
BUN 16
Creatinine 0.9
Glucose 139 H
Calcium 8.3 L
Vital Signs:
Vital Signs
Temp Pulse Resp BP Pulse Ox
98.1 F 79 16 108/64 95
12/19/23 07:17 12/19/23 09:13 12/19/23 07:17 12/19/23 09:13 12/19/23 07:17
I&O
12/18/23 12/19/23 12/20/23
06:59 06:59 06:59
Intake Total 870 / 870
Output Total
Balance 850 / 850
Review of Systems
-
History Source: Patient
Constitutional: Reports Fatigue and Other (pain)
Respiratory: Reports No Symptoms
Cardiac: Reports No Symptoms
Genitourinary: Reports No Symptoms
Musculoskeletal: Reports No Symptoms
Neuro: Reports No Symptoms
Hematologic / Lymphatic: Reports No Symptoms
Physical Exam
-
General: No Apparent Distress and Comfortable
HEENT: Normocephalic, Atraumatic and Moist Mucous Membranes
Respiratory: Clear to Auscultation and Other (No wheezes, rales and ronchi)
Cardiac: Regular Rhythm, S1/S2 and Other (No murmur, rubs and gallops)
GI: Soft, Nontender, Nondistended and Normal Bowel Sounds
Musculoskeletal: Other (Left arm dressing clean and intact, BART drain present)
Skin: Warm
Neuro: AO x 3 and Nonfocal/Grossly Intact
Psych: Calm
[2023-12-19 12:11] VITALS: BP 163/87; PULSE 70; O2SAT 99
[2023-12-19 15:20] VITALS: BP 148/81
--- NOTE | 2023-12-19 16:15 | CM ---
Reviewed the chart notes and spoke with the patient and his spouse at the bedside. Patient has a BART drain to LUE from surgery. The patient anticipates being discharged to SNF/rehab prior to patient returning to home. CM continues to be available
to patient/family and is monitoring medical plan for needs at discharge.
Plan: Discharge to SNF/rehab prior to transitioning back to home when medically stable. First choice is [facility]. Precert required.
--- NOTE | 2023-12-19 17:22 | W.PN.PLAS ---
Today's Communication
-
Dressing change at bedside
Next dressing change on Sunday
Progress Note
Subjective Data
Doing well
Objective Data
Vital Signs
Temp Pulse Resp BP Pulse Ox
98.1 F 71 16 148/81 95
12/19/23 15:20 12/19/23 15:20 12/19/23 15:20 12/19/23 15:20 12/19/23 15:20
Intake and Output
12/18/23 12/19/23 12/20/23
06:59 06:59 06:59
Intake Total 870 / 870
Output Total
Balance 850 / 850
Intake:
Oral fluids 720 / 720
IV fluids (Total) 150 / 150
normosol 150 / 150
Output:
Drain Output (Total)
Left Upper David-Vega
Other:
Number of approximated MODERATE 3 3
amounts of urine
Physical exam:
Flap well-perfused with Doppler signal intact
Incisions intact
BART drain serosanguineous
No purulence or necrotic tissue
Lab Results
12/19/23 05:07
12/19/23 05:07
Wound Documentation
12/19/23 07:35 (created 12/19/23 16:59) Wound Note by Isaura Porras
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 t/c Spoke with Char Cotton who will make sure the [facility] vac pump is placed in the soiled utility room
for continuous pickling line pickler helper. Char confirmed patient's vac is off and in patient's room.
Initialized on 12/19/23 16:59 - END OF NOTE
Assessment / Plan
63-year-old male with history of rheumatoid arthritis and septic left wrist status post multiple debridements that left him with a large dorsal wrist wound with exposed bone.
Underwent complex flap reconstruction of dorsal hand with radial artery central office mechanic flap
[2023-12-19] MEDS: INVANZ 60 MG IV (18:19)
[2023-12-19 23:19] VITALS: BP 166/66
[2023-12-20] MEDS: EFFEXOR 75 MG PO ×2 (05:57→13:57)
[2023-12-20] MEDS: WELLBUTRIN REGULAR RELEASE 75 MG PO ×2 (05:57→13:57)
[2023-12-20 06:00] VITALS: BMI 30.1
[2023-12-20 07:00] VITALS: BP 149/80
[2023-12-20] MEDS: FOLVITE 2 MG PO (08:57)
[2023-12-20] MEDS: TYLENOL 1000 MG PO ×3 (08:57→23:00)
[2023-12-20] MEDS: PACERONE 200 MG PO (08:58)
[2023-12-20] MEDS: PEPCID 20 MG PO (08:58)
[2023-12-20] MEDS: LOPRESSOR 50 MG PO ×2 (08:59→20:06)
[2023-12-20] MEDS: LASIX PO (08:59)
[2023-12-20] MEDS: MIRALAX PO (08:59)
--- NOTE | 2023-12-20 10:30 | CM ---
Reviewed the chart notes and spoke with the patient's spouse at the bedside. Patient getting closer to discharged. Referral sent to [facility]. Patient will be on IV ertapenem through 01/01/24 and Bactrim DS BID for several months. CM continues to be
available to patient/family and is monitoring medical plan for needs at discharge.
Plan: Discharge to SNF/rehab when medically stable. Precert will be required.
--- NOTE | 2023-12-20 14:39 | W.PN.HOSP.TC ---
Today's Communication/Plan
-
Wound care per
Hold Eliquis
IV antibiotics
Analgesic regimen has been adequate.
Assessment / Plan
Assessment / Plan
IMPRESSION:
A 63 yo M with a PMHx of CHF, RA with recurrent flares, paroxysmal Afib on Eliquis, chronic pain with opioid dependance, HTN, HLD, and neuropathy admitted to the floor for toxic metabolic encephalopathy secondary to left wrist osteomyelitis.
Left wrist osteomyelitis.
Rash secondary to local classic vasculitis, resolved.
Toxic metabolic encephalopathy resolved
Hyponatremia - resolved
Conditions prior to admission:
MSSA bacteremia with bilateral wrist septic arthropathy
Paroxysmal atrial fibrillation.
Anticoagulation with Eliquis.
IDDM.
Chronic diastolic CHF.
Chronic back pain and narcotic dependence.
Rheumatoid arthritis, immunosuppressed on Remicade last infusion September 2023
Essential hypertension.
Dyslipidemia
Neuropathy.
Plan
Left wrist osteomyelitis
Status post multiple wound debridement
Completed course of vancomycin for MSSA.
Latest left wrist wound culture with Serratia.
Stable to discharge from ID perspective. Continue ertapenem - through 01/01/24; will likely continue bactrim 1 DS tab BID another several months in the outpatient setting - decisions pending course including inflammatory markers and healing.
Left wrist wound dehiscence with bleeding
Holding Eliquis until further information from plastic surgery.
Status post wound revision on 12/10
Discussed with plastic surgery.
Wound washout (3rd revision) with a new wound VAC placement 12/14
skin flap done today with BART drain- 12/18. Wound VAC removed.
later elective fusion by orthopedics.
Plan discharge based on ortho/Plastic surgeon's plan.
Acute Anemia from blood loss -
12/08 - Hb - 8.3 to 12/09 - hb - 7.3, Received 1 unit of PRBC transfusion.
12/10 - Hb - 9. Low MCHC and high RDW.
12/13 - Hb -8.4, 12/14 - Hb 8.4
12/17 - Hb - 8.7 currently stable
Currently on ferrous gluconate.
tongue findings - likely secondary to anemia/ vitamin deficiency - resolved.
Toxic Metabolic encephalopathy - resolved
Hallucinations on 12/05 - resolved.
Not taking gabapentin and oxycodone (held for now).
CT head - 12/07 - mild diffuse cerebellar and cortical atrophy.
Other medications - venlafaxine and bupropion can also cause altered mental status.
Non - Blanching erythematous macular rash - Resolved.
LE>UE, Skin biopsy done by surgery.
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 Follow up - outpatient dermatology.
Steroids initially weaned off to prednisone 5 mg daily, patient declined further treatment.�Prednisone discontinued on 12/10.
CHF and Paroxysml A fib -
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 continue home dose.
Rate controlled on metoprolol.
IDDM -
on sliding scale insulin. continue monitoring POC glucose and ISS.
Chronic Back pain -narcotic dependence.
On opiates prior to admission
Toradol seems to help in the past, ordered
Hyponatremia - resolved.
Serum sodium - 12/18 - 138.
history of severe RA with recurrent flare
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
DVT PPX - scd
PT/OT assessment
Full code
Anticipated Discharge: > 48 hours
Subjective/Interval History
-
Date of Service: December 20, 2023
Objective Data
-
Vital Signs:
Vital Signs
Temp Pulse Resp BP Pulse Ox
98.3 F 69 16 149/80 95
12/20/23 07:00 12/20/23 08:59 12/20/23 07:00 12/20/23 08:59 12/20/23 07:00
I&O
12/19/23 12/20/23 12/21/23
06:59 06:59 06:59
Intake Total 870 / 870 1240 / 1240
Output Total 265 / 265
Balance 850 / 850 975 / 975
Physical Exam
-
General: Well Developed and No Apparent Distress
HEENT: Normocephalic, Atraumatic and Moist Mucous Membranes
Respiratory: Clear to Auscultation
Cardiac: Regular Rhythm and S1/S2; Negative Murmur, Rub or Gallop
GI: Soft, Nontender, Nondistended and Normal Bowel Sounds; Negative Organomegaly
Rectal: Deferred by Provider
Musculoskeletal: No Clubbing, No Cyanosis and No Edema
Skin: Negative Rash
Neuro: Nonfocal/Grossly Intact
[2023-12-20 15:00] VITALS: BP 132/70
[2023-12-20] MEDS: INVANZ 60 MG IV (17:17)
[2023-12-20 23:30] VITALS: BP 160/74
[2023-12-21] MEDS: EFFEXOR 75 MG PO ×2 (05:55→12:59)
[2023-12-21] MEDS: WELLBUTRIN REGULAR RELEASE 75 MG PO ×2 (05:56→12:59)
[2023-12-21 06:00] VITALS: BMI 30.4
[2023-12-21 07:25] VITALS: BP 155/74
[2023-12-21] MEDS: LASIX PO (09:30)
[2023-12-21] MEDS: MIRALAX PO (09:30)
[2023-12-21] MEDS: FOLVITE 2 MG PO (09:31)
[2023-12-21] MEDS: TYLENOL 1000 MG PO ×3 (09:31→21:03)
[2023-12-21] MEDS: PEPCID 20 MG PO (09:32)
[2023-12-21] MEDS: LOPRESSOR 50 MG PO ×2 (09:32→21:03)
[2023-12-21] MEDS: PACERONE 200 MG PO (09:32)
--- NOTE | 2023-12-21 10:26 | W.PN.HOSP.TC ---
Addendum entered and electronically signed by Efrain Dutton MD 12/21/23 16:34:
Patient seen and examined
Discussed with resident
Discussed with plastic surgery.
Plan for the weekend:
Resume Eliquis
Monitor wound/flap closely with resumption of anticoagulation.
Continue IV antibiotics.
Physical therapy.
Hopefully ready for rehab early next week.
Original Note:
Today's Communication/Plan
-
- Wound care
- continue IV antibiotics
- Resuming Eliquis
- Monitor drain output for bleeding.
Assessment / Plan
Assessment / Plan
IMPRESSION:
A 63 yo M with a PMHx of CHF, RA with recurrent flares, paroxysmal Afib on Eliquis, chronic pain with opioid dependance, HTN, HLD, and neuropathy admitted to the floor for toxic metabolic encephalopathy secondary to left wrist osteomyelitis.
Left wrist osteomyelitis.
Rash secondary to local classic vasculitis, resolved.
Toxic metabolic encephalopathy resolved
Hyponatremia - resolved
Conditions prior to admission:
MSSA bacteremia with bilateral wrist septic arthropathy
Paroxysmal atrial fibrillation.
Anticoagulation with Eliquis.
IDDM.
Chronic diastolic CHF.
Chronic back pain and narcotic dependence.
Rheumatoid arthritis, immunosuppressed on Remicade last infusion September 2023
Essential hypertension.
Dyslipidemia
Neuropathy.
Plan
Left wrist osteomyelitis
Status post multiple wound debridement
Completed course of vancomycin for MSSA.
Latest left wrist wound culture with Serratia.
Stable to discharge from ID perspective. Continue ertapenem - through 01/01/24; will likely continue bactrim 1 DS tab BID another several months in the outpatient setting - decisions pending course including inflammatory markers and healing.
Left wrist wound dehiscence with bleeding, Eliquis on hold.
Status post wound revision on 12/10
Discussed with plastic surgery.
Wound washout (3rd revision) with a new wound VAC placement 12/14
skin flap done today with BART drain- 12/18. Wound VAC removed.
later elective fusion by orthopedics.
Plan discharge based on ortho/Plastic surgeon's plan. Consulted plastic surgeon
Resuming eliquis today.
Monitor BART drain for bleeding.
Acute Anemia from blood loss -
12/08 - Hb - 8.3 to 12/09 - hb - 7.3, Received 1 unit of PRBC transfusion.
12/10 - Hb - 9. Low MCHC and high RDW.
12/13 - Hb -8.4, 12/14 - Hb 8.4
12/17 - Hb - 8.7 currently stable
Currently on ferrous gluconate.
tongue findings - likely secondary to anemia/ vitamin deficiency - resolved.
Toxic Metabolic encephalopathy - resolved
Hallucinations on 12/05 - resolved.
Not taking gabapentin and oxycodone (held for now).
CT head - 12/07 - mild diffuse cerebellar and cortical atrophy.
Other medications - venlafaxine and bupropion can also cause altered mental status.
Non - Blanching erythematous macular rash - Resolved.
LE>UE, Skin biopsy done by surgery.
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 Follow up - outpatient dermatology.
Steroids initially weaned off to prednisone 5 mg daily, patient declined further treatment.�Prednisone discontinued on 12/10.
CHF and Paroxysml A fib -
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 continue home dose.
Rate controlled on metoprolol.
IDDM -
on sliding scale insulin. continue monitoring POC glucose and ISS.
Chronic Back pain -narcotic dependence.
On opiates prior to admission
Toradol seems to help in the past, ordered
Hyponatremia - resolved.
Serum sodium - 12/18 - 138.
history of severe RA with recurrent flare
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
DVT PPX - scd
PT/OT assessment
Full code
Anticipated Discharge: > 48 hours
Subjective/Interval History
-
Date of Service: December 21, 2023
- reports improved pain
- Adequate pain control
Objective Data
-
Vital Signs:
Vital Signs
Temp Pulse Resp BP Pulse Ox
99.0 F 65 18 155/74 95
12/21/23 07:25 12/21/23 09:32 12/21/23 07:25 12/21/23 09:32 12/21/23 07:25
I&O
12/20/23 12/21/23 12/22/23
06:59 06:59 06:59
Intake Total 1240 / 1240 750 / 750
Output Total 265 / 265 8 / 8
Balance 975 / 975 742 / 742
Review of Systems
-
History Source: Patient
All other systems: Reviewed and negative
Physical Exam
-
General: No Apparent Distress and Comfortable
HEENT: Normocephalic, Atraumatic and Moist Mucous Membranes
Respiratory: Clear to Auscultation and Other (No wheezes, rales and ronchi)
Cardiac: Regular Rhythm, S1/S2 and Other (No murmur, rubs or gallops)
GI: Soft, Nontender, Nondistended and Normal Bowel Sounds
Musculoskeletal: No Edema and Other (Dressing clean and intact in the left arm with BART drain in position. right hand dressing intact.)
Skin: Warm
Neuro: AO x 3 and Nonfocal/Grossly Intact
Psych: Calm
[2023-12-21] MEDS: ELIQUIS 5 MG PO ×2 (12:15→21:03)
[2023-12-21 12:52] VITALS: BP 171/88; PULSE 62; O2SAT 96
[2023-12-21 12:53] VITALS: BP 171/89; PULSE 63; O2SAT 95
--- NOTE | 2023-12-21 14:56 | CM ---
Spoke with pt and at bedside
[facility] with Maame at [facility] to review referral
Per MD possible d/c early next week
Plan: Discharge to SNF/rehab when medically stable. Precert will be required.
[2023-12-21 15:25] VITALS: BP 138/70
--- NOTE | 2023-12-21 17:28 | W.PN.PLAS ---
Today's Communication
-
Dressing changed today, next resting change on Sunday
Will plan for drain removal on Sunday
Okay to restart anticoagulation
Plan for discharge to rehab facility Sunday
Progress Note
Subjective Data
Doing well
Objective Data
Vital Signs
Temp Pulse Resp BP Pulse Ox
98.7 F 61 16 138/70 95
12/21/23 15:25 12/21/23 15:25 12/21/23 15:25 12/21/23 15:25 12/21/23 15:25
Intake and Output
12/20/23 12/21/23 12/22/23
06:59 06:59 06:59
Intake Total 1240 / 1240 750 / 750
Output Total 265 / 265
Balance 975 / 975 737 / 737
Intake:
Oral fluids 1240 / 1240 750 / 750
Output:
Drain Output (Total)
Left Upper David-Vega
Urine, Voided 250 / 250
Other:
Number of approximated MODERATE 3 3
amounts of urine
Number of approximated LARGE 1
amounts of urine
Physical exam:
No acute distress
No increased work of breathing
Flap continues to appear well-perfused
Some fluid under skin graft
No necrosis or purulence
BART drain serosanguineous
Some kareen-incisional erythema
Lab Results
12/19/23 05:07
12/19/23 05:07
Wound Documentation
12/19/23 07:35 (created 12/19/23 16:59) Wound Note by Isaura Porras
[facility] RN Note: notified [employer] via [employer] re: stop rental vac ulta pump bill date as of 12/18/23 and command post superintendent in 2N soiled utility room. t/c Spoke with Char Cotton who will make sure the [facility] vac pump is placed in the soiled utility room
for command post superintendent. Char confirmed patient's vac is off and in patient's room.
Initialized on 12/19/23 16:59 - END OF NOTE
Assessment / Plan
63-year-old male with history of rheumatoid arthritis and septic left wrist status post multiple debridements that left him with a large dorsal wrist wound with exposed bone.
Underwent complex flap reconstruction of dorsal hand with radial artery news technical director flap
[2023-12-21] MEDS: INVANZ 60 MG IV (17:44)
[2023-12-21 23:50] VITALS: BP 151/95
--- NOTE | 2023-12-22 | PTCARENOTE ---
Patient accidently removed splint/wound care of left wrist in his sleep. When asked what happened he stated, 'I'm not sure, I think I was dreaming'. Wound care done. See documentation. Patient has no further complaints. Resting comfortably in bed.
Call crowell within reach.
[2023-12-22] MEDS: EFFEXOR 75 MG PO ×2 (05:54→14:00)
[2023-12-22] MEDS: WELLBUTRIN REGULAR RELEASE 75 MG PO ×2 (05:54→14:00)
[2023-12-22 06:00] VITALS: BMI 29.4
[2023-12-22 08:10] VITALS: BP 140/99
[2023-12-22] MEDS: TYLENOL 1000 MG PO ×3 (09:09→22:00)
[2023-12-22] MEDS: LASIX PO (09:09)
[2023-12-22] MEDS: LOPRESSOR 50 MG PO ×2 (09:09→20:09)
[2023-12-22] MEDS: ELIQUIS 5 MG PO ×2 (09:09→20:09)
[2023-12-22] MEDS: PEPCID 20 MG PO (09:10)
[2023-12-22] MEDS: PACERONE 200 MG PO (09:10)
[2023-12-22] MEDS: MIRALAX PO (09:10)
[2023-12-22] MEDS: FOLVITE 2 MG PO (09:10)
--- NOTE | 2023-12-22 09:42 | W.PN.HOSP.TC ---
Today's Communication/Plan
-
Continue current care
Assessment / Plan
Assessment / Plan
Gen-AAOx3, NAD
HEENT-NC, AT, anicteric, clear oral mm
Neck-supple
CV-reg, no M, +S1/S2
Lungs-clear B/L
Abd-soft, NT, ND
Ext-no edema
Musculoskeletal-no cyanosis, clubbing, left wrist immobilizer
Skin-warm and dry
Neuro-grossly non-focal
Psych-calm, cooperative
IMPRESSION:
A 63 yo M with a PMHx of CHF, RA with recurrent flares, paroxysmal Afib on Eliquis, chronic pain with opioid dependance, HTN, HLD, and neuropathy admitted to the floor for toxic metabolic encephalopathy secondary to left wrist osteomyelitis.
Left wrist osteomyelitis.
Rash secondary to local classic vasculitis, resolved.
Toxic metabolic encephalopathy resolved
Hyponatremia - resolved
Conditions prior to admission:
MSSA bacteremia with bilateral wrist septic arthropathy
Paroxysmal atrial fibrillation.
Anticoagulation with Eliquis.
IDDM.
Chronic diastolic CHF.
Chronic back pain and narcotic dependence.
Rheumatoid arthritis, immunosuppressed on Remicade last infusion September 2023
Essential hypertension.
Dyslipidemia
Neuropathy.
Plan
Left wrist osteomyelitis
Status post multiple wound debridement
Completed course of vancomycin for MSSA.
Latest left wrist wound culture with Serratia.
Stable to discharge from ID perspective. Continue ertapenem - through 01/01/24; will likely continue bactrim 1 DS tab BID another several months in the outpatient setting - decisions pending course including inflammatory markers and healing.
Left wrist wound dehiscence with bleeding, Eliquis on hold.
Status post wound revision on 12/10
Discussed with plastic surgery.
Wound washout (3rd revision) with a new wound VAC placement 12/14
skin flap done today with BART drain- 12/18. Wound VAC removed.
later elective fusion by orthopedics.
Plan discharge based on ortho/Plastic surgeon's plan. Consulted plastic surgeon
Resuming eliquis
Monitor BART drain for bleeding.
Acute Anemia from blood loss -
12/08 - Hb - 8.3 to 12/09 - hb - 7.3, Received 1 unit of PRBC transfusion.
12/10 - Hb - 9. Low MCHC and high RDW.
12/13 - Hb -8.4, 12/14 - Hb 8.4
12/17 - Hb - 8.7 currently stable
Currently on ferrous gluconate.
tongue findings - likely secondary to anemia/ vitamin deficiency - resolved.
Toxic Metabolic encephalopathy - resolved
Hallucinations on 12/05 - resolved.
Not taking gabapentin and oxycodone (held for now).
CT head - 12/07 - mild diffuse cerebellar and cortical atrophy.
Other medications - venlafaxine and bupropion can also cause altered mental status.
Non - Blanching erythematous macular rash - Resolved.
LE>UE, Skin biopsy done by surgery.
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 Follow up - outpatient dermatology.
Steroids initially weaned off to prednisone 5 mg daily, patient declined further treatment.�Prednisone discontinued on 12/10.
CHF and Paroxysml A fib -Eliquis resumed.
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 continue home dose.
Rate controlled on metoprolol.
IDDM -
on sliding scale insulin. continue monitoring POC glucose and ISS.
Chronic Back pain -narcotic dependence.
On opiates prior to admission
Toradol seems to help in the past, ordered
Hyponatremia - resolved.
Serum sodium - 12/18 - 138.
history of severe RA with recurrent flare
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
DVT PPX - scd
PT/OT assessment
Full code
Dispo -anticipate discharge to SNF on Sunday if stable.
Anticipated Discharge: > 48 hours
Subjective/Interval History
-
Date of Service: December 22, 2023
Patient seen and examined. No complaints.
Objective Data
-
Vital Signs:
Vital Signs
Temp Pulse Resp BP Pulse Ox
98.4 F 76 16 140/99 97
12/22/23 08:10 12/22/23 09:10 12/22/23 08:10 12/22/23 09:10 12/22/23 08:10
I&O
12/21/23 12/22/23 12/23/23
06:59 06:59 06:59
Intake Total 750 / 750 780 / 780
Output Total 250 / 250
Balance 737 / 737 530 / 530
Review of Systems
-
History Source: Patient
All other systems: Reviewed and negative
[2023-12-22 16:15] VITALS: BP 113/81
[2023-12-22] MEDS: INVANZ 60 MG IV (18:20)
[2023-12-22 23:11] VITALS: BP 101/50
[2023-12-23] MEDS: WELLBUTRIN REGULAR RELEASE 75 MG PO ×2 (05:54→12:34)
[2023-12-23] MEDS: EFFEXOR 75 MG PO ×2 (05:54→12:34)
[2023-12-23 06:00] VITALS: BMI 29.4
[2023-12-23 07:45] VITALS: BP 156/84
[2023-12-23 08:28] LABS: % Basophils 0.3 % (0-2); % Eosinophils 6.4 % (0-6); % Immature Granulocytes 0.5 % (0-0.5); % Lymphocytes 16.3 % (20.5-51.1); % Monocytes 10.7 % (1.7-9.3); % Neutrophils 65.8 % (42.2-75.2); Absolute Eosinophils 0.6 10^3/uL (0-0.7); Absolute Immature Granulocytes 0.1 10^3/uL (0-0.05); Absolute Lymphocytes 1.5 10^3/uL (1.2-3.4); Absolute Neutrophils 6.1 10^3/uL (1.4-6.5); Hematocrit 29.3 % (39.0-52.0); Hemoglobin 9.5 g/dL (13.0-18.0); Mean Corp Hgb Conc. 32.4 g/dL (33.0-37.0); Mean Corpuscular Hgb 29.1 pg (27.0-31.0); Mean Corpuscular Volume 89.9 fL (80.0-94.0); Mean Platelet Volume 9.6 fL (7.4-10.4); Nucleated Red Blood Cells % 0 % (-); Platelet Count 273 10^3/uL (130-400); Red Blood Cell Count 3.26 10^6/uL (4.70-6.10); Red Cell Dist. Width 15.5 % (11.5-14.5); White Blood Cell Count 9.2 10^3/uL (4.8-10.8)
[2023-12-23] MEDS: ELIQUIS 5 MG PO ×2 (08:45→21:03)
[2023-12-23] MEDS: TYLENOL 1000 MG PO ×3 (08:45→23:08)
[2023-12-23] MEDS: PEPCID 20 MG PO (08:45)
[2023-12-23] MEDS: FOLVITE 2 MG PO (08:45)
[2023-12-23] MEDS: LASIX PO (08:45)
[2023-12-23] MEDS: MIRALAX PO (08:45)
[2023-12-23] MEDS: PACERONE 200 MG PO (08:46)
[2023-12-23] MEDS: LOPRESSOR 50 MG PO ×2 (08:46→21:03)
--- NOTE | 2023-12-23 11:26 | W.PN.HOSP.TC ---
Today's Communication/Plan
-
Add melatonin
Assessment / Plan
Assessment / Plan
Gen-AAOx3, NAD
HEENT-NC, AT, anicteric, clear oral mm
Neck-supple
CV-reg, no M, +S1/S2
Lungs-clear B/L
Abd-soft, NT, ND
Ext-no edema
Musculoskeletal-no cyanosis, clubbing, left wrist immobilizer
Skin-warm and dry
Neuro-grossly non-focal
Psych-calm, cooperative
IMPRESSION:
A 63 yo M with a PMHx of CHF, RA with recurrent flares, paroxysmal Afib on Eliquis, chronic pain with opioid dependance, HTN, HLD, and neuropathy admitted to the floor for toxic metabolic encephalopathy secondary to left wrist osteomyelitis.
Left wrist osteomyelitis.
Rash secondary to local classic vasculitis, resolved.
Toxic metabolic encephalopathy resolved
Hyponatremia - resolved
Conditions prior to admission:
MSSA bacteremia with bilateral wrist septic arthropathy
Paroxysmal atrial fibrillation.
Anticoagulation with Eliquis.
IDDM.
Chronic diastolic CHF.
Chronic back pain and narcotic dependence.
Rheumatoid arthritis, immunosuppressed on Remicade last infusion September 2023
Essential hypertension.
Dyslipidemia
Neuropathy.
Plan
Left wrist osteomyelitis
Status post multiple wound debridement
Completed course of vancomycin for MSSA.
Latest left wrist wound culture with Serratia.
Stable to discharge from ID perspective. Continue ertapenem - through 01/01/24; will likely continue bactrim 1 DS tab BID another several months in the outpatient setting - decisions pending course including inflammatory markers and healing.
Left wrist wound dehiscence with bleeding, Eliquis on hold.
Status post wound revision on 12/10
Discussed with plastic surgery.
Wound washout (3rd revision) with a new wound VAC placement 12/14
skin flap done today with BART drain- 12/18. Wound VAC removed.
later elective fusion by orthopedics.
Plan discharge based on ortho/Plastic surgeon's plan. Consulted plastic surgeon
Continue Eliquis
Monitor BART drain for bleeding.
Acute Anemia from blood loss -
12/08 - Hb - 8.3 to 12/09 - hb - 7.3, Received 1 unit of PRBC transfusion.
12/10 - Hb - 9. Low MCHC and high RDW.
12/13 - Hb -8.4, 12/14 - Hb 8.4
12/17 - Hb - 8.7 currently stable
Currently on ferrous gluconate.
tongue findings - likely secondary to anemia/ vitamin deficiency - resolved.
Toxic Metabolic encephalopathy - resolved
Hallucinations on 12/05 - resolved.
Not taking gabapentin and oxycodone (held for now).
CT head - 12/07 - mild diffuse cerebellar and cortical atrophy.
Other medications - venlafaxine and bupropion can also cause altered mental status.
Non - Blanching erythematous macular rash - Resolved.
LE>UE, Skin biopsy done by surgery.
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 Follow up - outpatient dermatology.
Steroids initially weaned off to prednisone 5 mg daily, patient declined further treatment.�Prednisone discontinued on 12/10.
CHF and Paroxysml A fib -Eliquis resumed.
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 continue home dose.
Rate controlled on metoprolol.
IDDM -
on sliding scale insulin. continue monitoring POC glucose and ISS.
Chronic Back pain -narcotic dependence.
On opiates prior to admission
Toradol seems to help in the past, ordered
Hyponatremia - resolved.
Serum sodium - 12/18 - 138.
history of severe RA with recurrent flare
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
DVT PPX - scd
PT/OT assessment
Full code
Dispo -anticipate discharge to SNF on Sunday if stable.
Anticipated Discharge: Within 24 hours
Subjective/Interval History
-
Date of Service: December 23, 2023
Patient seen and examined. Complaining of insomnia. Denies pain.
Objective Data
-
Labs:
Laboratory Results
12/23/23
07:22
WBC 9.2
Hgb 9.5 L
Hct 29.3 L
Plt Count 273
Vital Signs:
Vital Signs
Temp Pulse Resp BP Pulse Ox
98.5 F 76 12 156/84 98
12/23/23 07:45 12/23/23 08:46 12/23/23 07:45 12/23/23 08:46 12/23/23 07:45
I&O
12/22/23 12/23/23 12/24/23
06:59 06:59 06:59
Intake Total 780 / 780 480 / 480
Output Total 260 / 260 5 / 5
Balance 520 / 520 -5 / -5 480 / 480
Review of Systems
-
History Source: Patient
All other systems: Reviewed and negative
[2023-12-23 15:30] VITALS: BP 133/84
[2023-12-23] MEDS: INVANZ 60 MG IV (17:02)
[2023-12-23 22:55] VITALS: BP 114/62
[2023-12-23] MEDS: MELATONIN 5 MG PO (23:08)
[2023-12-24] MEDS: ULTRAM 25 MG PO ×3 (03:38→23:51)
[2023-12-24] MEDS: ZOFRAN 4 MG IV ×3 (04:42→23:50)
[2023-12-24] MEDS: EFFEXOR 75 MG PO ×2 (04:43→12:42)
[2023-12-24] MEDS: WELLBUTRIN REGULAR RELEASE 75 MG PO ×2 (06:07→12:42)
--- NOTE | 2023-12-24 06:54 | W.PN.UPDATE ---
Update Note
Progress Note Update
Please have F/U with me after flap has healed
Will need wrist fusion once infection eradicated and flap has full take
thanks
GGMD
[2023-12-24 07:17] VITALS: BP 144/78
[2023-12-24] MEDS: FOLVITE 2 MG PO (08:15)
[2023-12-24] MEDS: TYLENOL 1000 MG PO ×3 (08:15→21:28)
[2023-12-24] MEDS: PACERONE 200 MG PO (08:15)
[2023-12-24] MEDS: LOPRESSOR 50 MG PO ×2 (08:16→20:24)
[2023-12-24] MEDS: PEPCID 20 MG PO (08:16)
[2023-12-24] MEDS: ELIQUIS 5 MG PO ×2 (08:16→20:24)
[2023-12-24] MEDS: MIRALAX PO (08:17)
[2023-12-24] MEDS: LASIX PO (08:17)
--- NOTE | 2023-12-24 13:16 | CM ---
Reviewed the chart notes and spoke with the patient's spouse. Updated referral sent to [facility]. IV abx until 01/01/24. CM continues to be available to patient/family and is monitoring medical plan for needs at discharge.
Plan: Discharge to SNF/rehab (hopefully [facility]). Precert will be required.
[2023-12-24 15:09] VITALS: BP 122/76; PULSE 70
[2023-12-24 15:13] VITALS: BP 122/76; PULSE 76
[2023-12-24 15:16] VITALS: BP 106/66
--- NOTE | 2023-12-24 16:48 | W.PN.HOSP.TC ---
Addendum entered and electronically signed by Efrain Dutton MD 12/24/23 18:09:
Patient seen and examined
Discussed with resident.
Stable hemoglobin with no evidence of hemorrhagic complication in the wound area since reintroduction of anticoagulation with Eliquis.
Wound drain to be removed today.
[facility]ing to [facility] facility.
Original Note:
Today's Communication/Plan
-
- Tylenol for pain
- Continue to monitor for BART drain output
- Plan for discharge to SNF tomorrow.
Assessment / Plan
Assessment / Plan
IMPRESSION:
A 63 yo M with a PMHx of CHF, RA with recurrent flares, paroxysmal Afib on Eliquis, chronic pain with opioid dependance, HTN, HLD, and neuropathy admitted to the floor for toxic metabolic encephalopathy secondary to left wrist osteomyelitis.
Left wrist osteomyelitis.
Rash secondary to local classic vasculitis, resolved.
Toxic metabolic encephalopathy resolved
Hyponatremia - resolved
Plan
Left wrist osteomyelitis
Status post multiple wound debridement
Completed course of vancomycin for MSSA.
Latest left wrist wound culture with Serratia.
Stable to discharge from ID perspective. Continue ertapenem - through 01/01/24; will likely continue bactrim 1 DS tab BID another several months in the outpatient setting - decisions pending course including inflammatory markers and healing.
Left wrist wound dehiscence with bleeding, Eliquis on hold.
Status post wound revision on 12/10
Discussed with plastic surgery.
Wound washout (3rd revision) with a new wound VAC placement 12/14
skin flap done today with BART drain- 12/18. Wound VAC removed.
later elective fusion by orthopedics.
Plan discharge based on ortho/Plastic surgeon's plan. Consulted plastic surgeon
Continue Eliquis
Monitor BART drain for bleeding.
Acute Anemia from blood loss -
12/08 - Hb - 8.3 to 12/09 - hb - 7.3, Received 1 unit of PRBC transfusion.
12/10 - Hb - 9. Low MCHC and high RDW.
12/13 - Hb -8.4, 12/14 - Hb 8.4
12/17 - Hb - 8.7 currently stable
Currently on ferrous gluconate.
tongue findings - likely secondary to anemia/ vitamin deficiency - resolved.
Toxic Metabolic encephalopathy - resolved
Hallucinations on 12/05 - resolved.
Not taking gabapentin and oxycodone (held for now).
CT head - 12/07 - mild diffuse cerebellar and cortical atrophy.
Other medications - venlafaxine and bupropion can also cause altered mental status.
Non - Blanching erythematous macular rash - Resolved.
LE>UE, Skin biopsy done by surgery.
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 Follow up - outpatient dermatology.
Steroids initially weaned off to prednisone 5 mg daily, patient declined further treatment.�Prednisone discontinued on 12/10.
CHF and Paroxysml A fib -Eliquis resumed.
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 continue home dose.
Rate controlled on metoprolol.
IDDM -
on sliding scale insulin. continue monitoring POC glucose and ISS.
Chronic Back pain -narcotic dependence.
On opiates prior to admission
Toradol seems to help in the past, ordered
Hyponatremia - resolved.
Serum sodium - 12/18 - 138.
history of severe RA with recurrent flare
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
DVT PPX
On eliquis
PT/OT assessment
Full code
Plan to SNF discharge today
Conditions prior to admission:
MSSA bacteremia with bilateral wrist septic arthropathy
Paroxysmal atrial fibrillation.
Anticoagulation with Eliquis.
IDDM.
Chronic diastolic CHF.
Chronic back pain and narcotic dependence.
Rheumatoid arthritis, immunosuppressed on Remicade last infusion September 2023
Essential hypertension.
Dyslipidemia
Neuropathy.
Anticipated Discharge: Within 24 hours
Subjective/Interval History
-
Date of Service: December 24, 2023
Pain - well controlled
Wound dressing intact
No bleeding on eliquis
Complains of headaches, and stomach-aches most likely secondary to tramadol.
Objective Data
-
Vital Signs:
Vital Signs
Temp Pulse Resp BP Pulse Ox
98.3 F 68 16 106/66 100
12/24/23 15:16 12/24/23 15:16 12/24/23 15:16 12/24/23 15:16 12/24/23 15:16
I&O
12/23/23 12/24/23 12/25/23
06:59 06:59 06:59
Intake Total 2059
Output Total
Balance - / -2054
Review of Systems
-
History Source: Patient
All other systems: Reviewed and negative
Physical Exam
-
General: No Apparent Distress and Comfortable
HEENT: Normocephalic, Atraumatic and Moist Mucous Membranes
Respiratory: Clear to Auscultation and Other (No wheezing, ronchi and rales)
Cardiac: Regular Rhythm, S1/S2 and Other (No murmur, rubs and gallops)
GI: Soft, Nontender, Nondistended and Normal Bowel Sounds
Musculoskeletal: No Edema
Neuro: AO x 3 and Nonfocal/Grossly Intact
Psych: Calm
[2023-12-24] MEDS: INVANZ 60 MG IV (17:09)
--- NOTE | 2023-12-24 18:14 | W.PN.PLAS ---
Today's Communication
-
Please see wound care instructions in today's note
Progress Note
Subjective Data
Doing well.
Objective Data
Vital Signs
Temp Pulse Resp BP Pulse Ox
98.3 F 68 16 106/66 100
12/24/23 15:16 12/24/23 15:16 12/24/23 15:16 12/24/23 15:16 12/24/23 15:16
Intake and Output
12/23/23 12/24/23 12/25/23
06:59 06:59 06:59
Intake Total 2059 / 2059 1230 / 1230
Output Total / 5 / 400 / 400
Balance -5 / -5 2054 / 2054 830 / 830
Intake:
Oral fluids 1969 / 1969 1140 / 1140
IV fluids (Total) 30 / 30
IV piggybacks 60 / 60 60 / 60
Output:
Drain Output (Total) 5 / 5 5 / 5
Left [place] / 5 / 5
Urine, Voided 400 / 400
Other:
Number of approximated MODERATE 3
amounts of urine
Physical exam:
No acute distress
Increased work of breathing
Left dorsal wrist flap well-perfused with greater than 60% split-thickness skin graft take
No purulence
Slight area of medial wound dehiscence, subcentimeter
Drain serosanguineous
Lab Results
12/23/23 07:22
12/19/23 05:07
Wound Documentation
12/19/23 07:35 (created 12/19/23 16:59) Wound Note by Isaura Porras
WOC RN Note: notified [employer] via [employer] re: stop rental vac ulta pump bill date as of 12/18/23 and merchandise pickup/receiving associate in [address] soiled utility room. t/c Spoke with Char Cotton who will make sure the [facility] vac pump is placed in the soiled utility room
for merchandise pickup/receiving associate. Char confirmed patient's vac is off and in patient's room.
Initialized on 12/19/23 16:59 - END OF NOTE
Assessment / Plan
63-year-old male with history of rheumatoid arthritis and septic left wrist status post multiple debridements that left him with a large dorsal wrist wound with exposed bone.
Underwent complex flap reconstruction of dorsal hand with radial artery getterer flap
Dressing change at bedside today
Flap healthy and well-perfused with skin graft overlying
Appropriate for discharge with follow-up in 1 week
Wound care instruction as follows:
No flexion or extension of the wrist at any time, must be maintained in a splint. Dressing changes to be performed with wrist in a neutral position.
Petroleum gauze to skin grafted areas of the flap
ABD over petroleum gauze
Curlex wrap to hold ABD in place
Splint placed over Curlex
Frantz wrap to hold splint and stabilize wrist joint
[2023-12-24] MEDS: MELATONIN 5 MG PO (21:28)
[2023-12-24 23:21] VITALS: BP 122/53
[2023-12-25 00:52] LABS: Glucose - Point of Care 115 mg/dl (70-99)
--- NOTE | 2023-12-25 02:17 | PTCARENOTE ---
Pt with involuntary legs movements which makes his all body shake and jitter on and off. Pt AAOx3 but unable to control those body movements. VSS stable, BS 115. Per pt. had this episode last night however it was not reported to the nurse or
doctor. WE[employer] made aware. One time order Ativan STAT.
[2023-12-25] MEDS: WELLBUTRIN REGULAR RELEASE 75 MG PO ×2 (06:21→12:51)
[2023-12-25] MEDS: EFFEXOR 75 MG PO ×2 (06:21→12:51)
[2023-12-25 07:10] VITALS: BP 130/71
[2023-12-25] MEDS: LASIX PO (08:40)
[2023-12-25] MEDS: ELIQUIS 5 MG PO (08:40)
[2023-12-25] MEDS: FOLVITE 2 MG PO (08:40)
[2023-12-25] MEDS: LOPRESSOR 50 MG PO (08:40)
[2023-12-25] MEDS: TYLENOL 1000 MG PO ×2 (08:40→16:20)
[2023-12-25] MEDS: PACERONE 200 MG PO (08:41)
[2023-12-25] MEDS: PEPCID 20 MG PO (08:41)
[2023-12-25] MEDS: MIRALAX PO (08:41)
--- NOTE | 2023-12-25 09:42 | W.PN.ID1 ---
Date of Service
Date of Service: December 25, 2023
Today's Communication
- Continue ertapenem - through 01/01/24; then on 01/02 start bactrim 1 DS tab BID for another two months - patient to follow up with me in the outpatient setting
Assessment / Plan
Osteomyelitis L wrist due to Serratia and possibly MSSA
Osteomyelitis R wrist due to MSSA - resolved
- 12/06 OR cultures - finalized negative
- appreciate orthopedics & plastics
- has PICC - to be removed 01/02
- weekly cbc, cmp while on outpatient antibiotics
- CRP mildly elevated, will probably recheck periodically
- Continue ertapenem - through 01/01/24; then on 01/02 start bactrim 1 DS tab BID for another two months - patient to follow up with me in the outpatient setting
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
Chief Complaint
-: Other (rash, osteo)
Subjective / Review of Systems
afebrile
bp stable
PICC in place no erythema, warmth tenderness or drainage
no complaints
recent cbc and bmp reviewed
Vital Signs / Physical Exam
Vital Signs
Vital Signs
Temp Pulse Resp BP Pulse Ox
98.2 F 64 16 130/71 98
12/25/23 07:10 12/25/23 07:10 12/25/23 07:10 12/25/23 08:41 12/25/23 07:10
Physical Exam
Constitutional: No Acute Distress
Cardiovascular: Regular Rate and S1/S2; Negative Murmur or Rub
Pulmonary: Clear and Symmetric; Negative Wheezes or Rales
Gastrointestinal: Soft, Non Tender, Non Distended and Normal Bowel Sounds
Skin: Warm and Dry; Negative Rash or Jaundice
Lines: PICC
Objective Data
Lab Data
Lab Results
12/23/23 07:22
12/19/23 05:07
ESR 73 mm/hour (0-20) H 12/18/23 05:24
PT 14.7 Sec (11.4-14.6) H 12/09/23 18:05
INR 1.13 12/09/23 18:05
APTT 48.2 Sec (23.4-35.0) H 12/09/23 18:05
Estimated Creat Clear 94 ml/min 12/19/23 05:07
Total Bilirubin 0.5 mg/dl (0.2-1.3) 12/05/23 14:50
AST 34 U/L (17-59) 12/05/23 14:50
ALT 17 U/L (0-50) 12/05/23 14:50
Alkaline Phosphatase 120 U/L (38-126) 12/05/23 14:50
C-Reactive Protein 39.10 mg/L (0.0-10.00) H 12/18/23 05:24
Most recent labs reviewed.
Micro Results:
12/06/23 20:55 Wound Culture - Final
Hand - Left No growth
Gram Stain - Final
12/06/23 20:55 Anaerobic Culture - Final
Wound-Deep NO ANAEROBES ISOLATED
12/05/23 18:03 Blood Culture - Final
Blood/Venous No Growth - Final Report
12/05/23 14:50 Blood Culture - Final
Blood/Venous No Growth - Final Report
12/05/23 18:03 MRSA Screen - Final
Nose No Methicillin Resistant Staphylococcus aureus isolated.
--- NOTE | 2023-12-25 11:14 | CM ---
Reviewed the chart notes. Patient has been accepted to [facility]. Precert obtained.
Auth #[id number]
NRD: 12/31/23
Call: [phone]
[facility] Auth #[id number]
Plan: Discharge to [facility]
Call report to: [phone]
Fax report to: [phone]
Medical necessity and transport forms on chart.
--- NOTE | 2023-12-25 13:18 | W.DS.TRANS ---
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
-
Discharge Instructions:
Discharge Diagnosis/Procedures Left wrist septic arthritis
Diet Diabetic, Carb Controlled
Instructions:
Stand-Alone Forms:
Changes to Home Medications: Yes
Discharge Medications:
DC Medications w/original date entered in [facility]
bupropion HCl 75 mg tablet 75 mg PO BID Mental Health/Anxiety 05/01/22
folic acid 1 mg tablet 2 mg PO DAILY Supplement 05/15/23
gabapentin 100 mg capsule 200 mg PO HS Pain 05/15/23
apixaban 5 mg tablet (Eliquis) 5 mg PO BID 30 days #60 tabs 05/18/23
famotidine 20 mg tablet 20 mg PO DAILY Gastrointestinal Issue 10/14/23
acetaminophen 325 mg tablet (Tylenol) 650 mg PO Q4HPRN PRN mild pain 11/14/23
amiodarone 200 mg tablet (Pacerone) 200 mg PO DAILY 11/14/23
bisacodyl 10 mg rectal suppository (Dulcolax (bisacodyl)) 10 mg MA DAILY PRN constipation 11/14/23
melatonin 5 mg tablet 5 mg PO HS 11/14/23
acetaminophen 500 mg tablet (Tylenol Extra Strength) 1,000 mg PO TID Pain 12/05/23
metformin 500 mg tablet,extended release 24 hr 1,000 mg PO DAILY 12/05/23
metoprolol tartrate 50 mg tablet (Lopressor) 50 mg PO Q12H 12/05/23
Ertapenem [Invanz] 1,000 mg 120 mls/hr IV Q24H 12/25/23
sulfamethoxazole 800 mg-trimethoprim 160 mg tablet (Bactrim DS) 1 tab PO BID #60 tabs 12/25/23
venlafaxine 37.5 mg tablet 75 mg PO BID@0600,1300 #60 tabs 12/25/23
Home Medication Changes
Antibiotics regimen
Pending Results: No
--- NOTE | 2023-12-25 15:03 | PTCARENOTE ---
pt to be discharged at 1630 this afternoon to [facility]. pt leaving and will continue abx. this nurse completed next dose and continuum of care. paperwork faxed by community worker.
[2023-12-25 15:15] VITALS: BP 134/71
--- NOTE | 2023-12-25 16:15 | W.DCSUMMARY ---
Documented by User: Padmini Melendez MD, Resident 12/25/23 16:43
Discharge Summary
Discharge Data
Date of Admission: 12/05/23
Date of Discharge: 12/25/23
-
Pending Results: No
Hospital Course
Impression:
A 63 yo M with a PMHx of CHF, RA with recurrent flares, paroxysmal Afib on Eliquis, chronic pain with opioid dependance, HTN, HLD, and neuropathy admitted to the floor for toxic metabolic encephalopathy secondary to left wrist osteomyelitis.
Primary Diagnosis - Left wrist Osteomyelitis.
Secondary Diagnosis -
Toxic metabolic encephelopathy secondary to left wrist osteomyelitis
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
Hyponatremia - resolved
Hospital Course-
Left wrist osteomyelitis -
Multiple wound debridement with a complete course of vancomycin for MSSA. Bone biopsy cultures positive for serratia and ID consulted. on Ertapenem from 12/07/23 to 01/01/24. After Ertapenem, start bactrim 1 DS BID on 01/02/24 and continue for 2 months.
Wound debridement complicated by wound dehiscence with profuse bleeding, and required revision surgeries with BART drain and Eliquis on hold from 12/10 through 12/22
Wound revision surgeries on 12/10, with Wound VAC placement, New wound VAC with 3rd revision on 12/14, followed skin flap with subsequent removal of wound VAC and BART drain placement on 12/18.
Eliquis restarted on 12/22, and after patient was stable without bleeding from wound site for 2 days, BART drain was removed on 12/24 with later elective fusion of the wrist by orthopedics and plastic surgery.
Outpatient follow up with plastics and orthopedics.
Acute Anemia from blood loss -
12/08 - Hb - 8.3 to 12/09 - hb - 7.3, Received 1 unit of PRBC transfusion.
12/10 - Hb - 9. Low MCHC and high RDW.
12/13 - Hb -8.4, 12/14 - Hb 8.4
12/17 - Hb - 8.7 currently stable at 9.5 2 days prior to discharge.
Currently on ferrous gluconate.
Repeat CBC and BMP in 4 weeks after discharge.
Toxic Metabolic encephalopathy - resolved
Hallucinations on 12/05 - resolved.
Gabapentin and oxycodone were held and can resume at SNF.
CT head - 12/07 - mild diffuse cerebellar and cortical atrophy.
Other medications - venlafaxine and bupropion can also cause altered mental status.
Consider medication reconciliation as needed after discharge.
Non - Blanching erythematous macular rash - Resolved.
LE>UE, Skin biopsy done by surgery.
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 Follow up - outpatient dermatology.
Steroids initially weaned off to prednisone 5 mg daily, patient declined further treatment.�Prednisone discontinued on 12/10.
Hyponatremia - resolved.
Serum sodium - 12/18 - 138.
Due to risk of bleeding, ketorolac is discontinued during hospital stay and patient was given tramadol.
Patient had interactions with ertapenem and developed headache, stomach pain and seizure like movements after which tramadol is discontinued.
Conditions prior to admission:
MSSA bacteremia with bilateral wrist septic arthropathy
Paroxysmal atrial fibrillation.
Anticoagulation with Eliquis.
IDDM.
Chronic diastolic CHF.
Chronic back pain and narcotic dependence.
Rheumatoid arthritis, immunosuppressed on Remicade last infusion September 2023
Essential hypertension.
Dyslipidemia
Neuropathy
Continued using home meds- lasix, metoprolol, amiodarone, and Eliquis(with eliquis exceptions mentioned above) during the hospital stay.
Discharge Plan
-
Patient Disposition: Retirement/SNF
Discharge Diagnosis/Procedures: Left wrist septic arthritis
Condition: Good
Diet: Diabetic, Carb Controlled
Activity Restrictions/Additional Instructions:
No flexion or extension of the wrist at any time, must be maintained in a splint. Dressing changes to be performed with wrist in a neutral position.
Petroleum gauze to skin grafted areas of the flap
ABD over petroleum gauze
Curlex wrap to hold ABD in place
Splint placed over Curlex
Frantz wrap to hold splint and stabilize wrist joint
Referrals:
Ck Ledezma MD [Family Provider] -
Du Carbajal MD [Active] -
Ryder Wu MD [Active] -
Mirian Yeager MD [Active] -
Prescriptions:
New
Ertapenem [Invanz] 1000 MG
0.9% Sodium Chloride [Nss] 50 ML
120 mls/hr IV Q24H
through 01/01/2024
Ordered By: Efrain Dutton MD
Last Taken: 12/25/23 16:35 60 mls
sulfamethoxazole-trimethoprim [Bactrim DS] 800-160 mg tablet
1 tab PO BID Qty: 60 0RF
Rx Instructions:
Start on 01/02/24 fir 2 month.
venlafaxine 37.5 mg Tablet
75 mg PO BID@0600,1300 Qty: 60 0RF
Continued
bupropion HCl 75 MG tablet
75 mg PO BID
folic acid 1 mg Tablet
2 mg PO DAILY
gabapentin 100 mg Capsule
200 mg PO HS
Eliquis 5 mg Tablet
5 mg PO BID 30 Days Qty: 60 0RF
famotidine 20 mg Tablet
20 mg PO DAILY
acetaminophen [Tylenol] 325 mg Tablet
650 mg PO Q4HPRN PRN (Reason: mild pain)
bisacodyl [Dulcolax (bisacodyl)] 10 mg Suppository
10 mg MO DAILY PRN (Reason: constipation)
melatonin 5 mg Tablet
5 mg PO HS
amiodarone [Pacerone] 200 mg tablet
200 mg PO DAILY
acetaminophen [Tylenol Extra Strength] 500 mg Tablet
1,000 mg PO TID
metoprolol tartrate [Lopressor] 50 mg Tablet
50 mg PO Q12H
metformin 500 mg Tablet Extended Release 24 Hr
1,000 mg PO DAILY
Discontinued
polyethylene glycol 3350 [Miralax] 17 gram Powder In Packet
17 g PO DAILY
bacitracin zinc 500 unit/gram Ointment
1 applic topical DAILY Qty: 1 0RF
magnesium hydroxide [Milk of Magnesia] 400 mg/5 mL Suspension
30 ml PO DAILY PRN (Reason: if no bm by 4th day)
Fleet Enema 19-7 gram/118 mL Enema
118 ml MO DAILY PRN (Reason: constipation)
ibuprofen 600 mg Tablet
600 mg PO DAILYPRN PRN (Reason: moderate pain)
insulin lispro [Humalog KwikPen Insulin] 100 unit/mL Insulin Pen
1 sliding scale dose SC DIRECTED
Rx Instructions:
BS <200 no coverage, 200-249: 2 units, 250-299: 4 units, 300-349: 6units, 350-400: 8 units, >400 call provider
guaifenesin [Mucinex] 600 mg Tablet Extended Release 12hr
600 mg PO BID
furosemide [Lasix] 40 mg Tablet
40 mg PO DAILY
sennosides [senna] 8.6 mg Tablet
8.6 mg PO DAILY
venlafaxine [Effexor] 75 mg Tablet
75 mg PO HSPRN PRN (Reason: anixety)
prednisone 5 mg Tablet
50 mg PO .TAPER
Patient Comments:
TAPER TAKE 5MG DAILY THEN 10MG DAILY THEN 20MG DAILY THEN 30MG DAILY THEN 40MG DAILY THEN 50MG DAILY, [facility] DID NOT HAVE PROPER DIRECTIONS
Cathflo Activase 2 mg Recon Soln
2 mg INTRA-CATHETER DAILYPRN PRN (Reason: iv use)
oxycodone 5 mg tablet
5 mg PO Q8HPRN PRN (Reason: moderate pain)
levofloxacin 750 mg Tablet
750 mg PO DAILY
venlafaxine [Effexor] 75 mg Tablet
75 mg PO BID
ondansetron HCl [Zofran] 4 mg Tablet
4 mg PO Q6HPRN PRN (Reason: NAUSEA)
hydromorphone 2 mg Tablet
2 mg PO Q6HPRN PRN (Reason: SEVERE PAIN)
diphenhydramine HCl [Benadryl] 25 mg Capsule
25 mg PO BIDPRN PRN (Reason: RASG)
vancomycin 1.25 gram Recon Soln
1 g IV Q12H
Patient Comments:
275@183.33 ML/HR FOR MELIZA INFECTION
Discharge Orders:
Discharge Patient (As Directed); Ordered 12/25/23
Ordered By: Efrain Dutton

Documented by User: Efrain Dutton MD 12/25/23 16:47
Discharge Summary
Discharge Data
Date of Admission: 12/05/23
Date of Discharge: 12/25/23
Discharge Plan
-
Patient Disposition: Retirement/SNF
Discharge Diagnosis/Procedures: Left wrist septic arthritis
Condition: Good
Diet: Diabetic, Carb Controlled
Activity Restrictions/Additional Instructions:
No flexion or extension of the wrist at any time, must be maintained in a splint. Dressing changes to be performed with wrist in a neutral position.
Petroleum gauze to skin grafted areas of the flap
ABD over petroleum gauze
Curlex wrap to hold ABD in place
Splint placed over Curlex
Frantz wrap to hold splint and stabilize wrist joint
Referrals:
Ck Ledezma MD [Family Provider] -
Du Carbajal MD [Active] -
Ryder Wu MD [Active] -
Mirian Yeager MD [Active] -
Prescriptions:
New
Ertapenem [Invanz] 1000 MG
0.9% Sodium Chloride [Nss] 50 ML
120 mls/hr IV Q24H
through 01/01/2024
Ordered By: Efrain Dutton MD
Last Taken: 12/25/23 16:35 60 mls
sulfamethoxazole-trimethoprim [Bactrim DS] 800-160 mg tablet
1 tab PO BID Qty: 60 0RF
Rx Instructions:
Start on 01/02/24 fir 2 month.
venlafaxine 37.5 mg Tablet
75 mg PO BID@0600,1300 Qty: 60 0RF
Continued
bupropion HCl 75 MG tablet
75 mg PO BID
folic acid 1 mg Tablet
2 mg PO DAILY
gabapentin 100 mg Capsule
200 mg PO HS
Eliquis 5 mg Tablet
5 mg PO BID 30 Days Qty: 60 0RF
famotidine 20 mg Tablet
20 mg PO DAILY
acetaminophen [Tylenol] 325 mg Tablet
650 mg PO Q4HPRN PRN (Reason: mild pain)
bisacodyl [Dulcolax (bisacodyl)] 10 mg Suppository
10 mg MO DAILY PRN (Reason: constipation)
melatonin 5 mg Tablet
5 mg PO HS
amiodarone [Pacerone] 200 mg tablet
200 mg PO DAILY
acetaminophen [Tylenol Extra Strength] 500 mg Tablet
1,000 mg PO TID
metoprolol tartrate [Lopressor] 50 mg Tablet
50 mg PO Q12H
metformin 500 mg Tablet Extended Release 24 Hr
1,000 mg PO DAILY
Discontinued
polyethylene glycol 3350 [Miralax] 17 gram Powder In Packet
17 g PO DAILY
bacitracin zinc 500 unit/gram Ointment
1 applic topical DAILY Qty: 1 0RF
magnesium hydroxide [Milk of Magnesia] 400 mg/5 mL Suspension
30 ml PO DAILY PRN (Reason: if no bm by 4th day)
Fleet Enema 19-7 gram/118 mL Enema
118 ml MO DAILY PRN (Reason: constipation)
ibuprofen 600 mg Tablet
600 mg PO DAILYPRN PRN (Reason: moderate pain)
insulin lispro [Humalog KwikPen Insulin] 100 unit/mL Insulin Pen
1 sliding scale dose SC DIRECTED
Rx Instructions:
BS <200 no coverage, 200-249: 2 units, 250-299: 4 units, 300-349: 6units, 350-400: 8 units, >400 call provider
guaifenesin [Mucinex] 600 mg Tablet Extended Release 12hr
600 mg PO BID
furosemide [Lasix] 40 mg Tablet
40 mg PO DAILY
sennosides [senna] 8.6 mg Tablet
8.6 mg PO DAILY
venlafaxine [Effexor] 75 mg Tablet
75 mg PO HSPRN PRN (Reason: anixety)
prednisone 5 mg Tablet
50 mg PO .TAPER
Patient Comments:
TAPER TAKE 5MG DAILY THEN 10MG DAILY THEN 20MG DAILY THEN 30MG DAILY THEN 40MG DAILY THEN 50MG DAILY, [facility] DID NOT HAVE PROPER DIRECTIONS
Cathflo Activase 2 mg Recon Soln
2 mg INTRA-CATHETER DAILYPRN PRN (Reason: iv use)
oxycodone 5 mg tablet
5 mg PO Q8HPRN PRN (Reason: moderate pain)
levofloxacin 750 mg Tablet
750 mg PO DAILY
venlafaxine [Effexor] 75 mg Tablet
75 mg PO BID
ondansetron HCl [Zofran] 4 mg Tablet
4 mg PO Q6HPRN PRN (Reason: NAUSEA)
hydromorphone 2 mg Tablet
2 mg PO Q6HPRN PRN (Reason: SEVERE PAIN)
diphenhydramine HCl [Benadryl] 25 mg Capsule
25 mg PO BIDPRN PRN (Reason: RASG)
vancomycin 1.25 gram Recon Soln
1 g IV Q12H
Patient Comments:
275@183.33 ML/HR FOR MELIZA INFECTION
Discharge Orders:
Discharge Patient (As Directed); Ordered 12/25/23
Ordered By: Efrain Dutton
[2023-12-25] MEDS: INVANZ 60 MG IV (16:35)
--- NOTE | 2023-12-25 16:41 | PTCARENOTE ---
pt to go to [facility] this afternoon. this nurse called report and was made aware they would not have his q24 abx until tomorrow. this nurse hung abx early so that pt would receive daily dose appropriately.
[2023-12-25] MEDS: ZOFRAN 4 MG IV (17:37)
== END 2023-12-25 18:36 | DRG 463 ==
LOC: 2 NORTH 14:05
PROVIDERS: Hospitalist; Internal Medicine; Orthopaedic Surgery Hand Surgery; Physician Assistant Medical; ADMITTING PHYSICIAN Hospitalist; ATTENDING PHYSICIAN Internal Medicine; CONSULT PHYSICIAN Student in an Organized Health Care Education/Training Program; CONSULT PHYSICIAN Surgery; EMERGENCY PHYSICIAN Student in an Organized Health Care Education/Training Program; FAMILY PHYSICIAN Family Medicine; OTHER PHYSICIAN Physician Assistant; OTHER PHYSICIAN Surgery Plastic and Reconstructive Surgery
PROC: 0RBP0ZZ Excision of Left Wrist Joint, Open Approach (ICD-10-PCS; 2023-12-06)
PROC: 0HBKXZX Excision of Right Lower Leg Skin, External Approach, Diagnostic (ICD-10-PCS; 2023-12-06)
PROC: 30233N1 Transfusion of Nonautologous Red Blood Cells into Peripheral Vein, Percutaneous Approach (ICD-10-PCS; 2023-12-09)
PROC: 0RCP0ZZ Extirpation of Matter from Left Wrist Joint, Open Approach (ICD-10-PCS; 2023-12-10)
PROC: 02HV33Z Insertion of Infusion Device into Superior Vena Cava, Percutaneous Approach (ICD-10-PCS; 2023-12-12)
PROC: 0JBH0ZZ Excision of Left Lower Arm Subcutaneous Tissue and Fascia, Open Approach (ICD-10-PCS; 2023-12-14)
PROC: 0PBN0ZZ Excision of Left Carpal, Open Approach (ICD-10-PCS; 2023-12-18)
PROC: 0JXH0ZZ Transfer Left Lower Arm Subcutaneous Tissue and Fascia, Open Approach (ICD-10-PCS; 2023-12-18)
PROC: 0HREX74 Replacement of Left Lower Arm Skin with Autologous Tissue Substitute, Partial Thickness, External Approach (ICD-10-PCS; 2023-12-18)
DX: M86.142 Other acute osteomyelitis, left hand (principal); G92.8 Other toxic encephalopathy; D62 Acute posthemorrhagic anemia; F11.20 Opioid dependence, uncomplicated; I50.32 Chronic diastolic (congestive) heart failure; L03.114 Cellulitis of left upper limb; M86.141 Other acute osteomyelitis, right hand; M00.032 Staphylococcal arthritis, left wrist; D84.9 Immunodeficiency, unspecified; T81.31XA Disruption of external operation (surgical) wound, not elsewhere classified, initial encounter; L76.32 Postprocedural hematoma of skin and subcutaneous tissue following other procedure; E87.1 Hypo-osmolality and hyponatremia; M31.0 Hypersensitivity angiitis; M06.9 Rheumatoid arthritis, unspecified; I48.0 Paroxysmal atrial fibrillation; E78.5 Hyperlipidemia, unspecified; G89.29 Other chronic pain; I11.0 Hypertensive heart disease with heart failure; Y83.8 Other surgical procedures as the cause of abnormal reaction of the patient, or of later complication, without mention of misadventure at the time of the procedure; Z11.52 Encounter for screening for COVID-19; E11.42 Type 2 diabetes mellitus with diabetic polyneuropathy; B95.61 Methicillin susceptible Staphylococcus aureus infection as the cause of diseases classified elsewhere; R51.9 Headache, unspecified; R10.9 Unspecified abdominal pain; R25.8 Other abnormal involuntary movements; T40.425A Adverse effect of tramadol, initial encounter; I77.89 Other specified disorders of arteries and arterioles; F32.A Depression, unspecified; Z79.01 Long term (current) use of anticoagulants; Z79.4 Long term (current) use of insulin; Z79.52 Long term (current) use of systemic steroids; Z79.899 Other long term (current) drug therapy; Z87.891 Personal history of nicotine dependence
CPT/HCPCS: 88304; 88305; 88311; 70450; 71045; 71046; 73110; 73201; 73206; 76882; 80048; 80053; 81003; 81015; 82570; 82595; 82784; 82962; 83516; 83521; 84155; 84156; 84165; 85014; 85018; 85025; 85027; 85610; 85652; 85730; 86140; 86160; 86200; 86334; 86430; 86704; 86706; 86803; 86850; 86900; 86901; 86920; 87015; 87040; 87070; 87075; 87205; 87340; 87811; 97110; 97162; 97167; 97530; 97535; 99285; A4648; J1335; J2916; P9016; Q9967

== ENCOUNTER → 2023-12-31 11:45 | Outpatient (REF) | payer OTHER, SELFPAY ==
[2023-12-31 13:02] LABS: % Basophils 0.3 % (0-2); % Eosinophils 7.9 % (0-6); % Immature Granulocytes 0.3 % (0-0.5); % Lymphocytes 16.1 % (20.5-51.1); % Monocytes 10.3 % (1.7-9.3); % Neutrophils 65.1 % (42.2-75.2); Absolute Eosinophils 0.8 10^3/uL (0-0.7); Absolute Lymphocytes 1.5 10^3/uL (1.2-3.4); Absolute Neutrophils 6.2 10^3/uL (1.4-6.5); Hematocrit 31.6 % (39.0-52.0); Hemoglobin 9.7 g/dL (13.0-18.0); Mean Corp Hgb Conc. 30.7 g/dL (33.0-37.0); Mean Corpuscular Hgb 28.4 pg (27.0-31.0); Mean Corpuscular Volume 92.4 fL (80.0-94.0); Mean Platelet Volume 10.2 fL (7.4-10.4); Nucleated Red Blood Cells % 0 % (-); Platelet Count 295 10^3/uL (130-400); Red Blood Cell Count 3.42 10^6/uL (4.70-6.10); Red Cell Dist. Width 14.9 % (11.5-14.5); White Blood Cell Count 9.5 10^3/uL (4.8-10.8)
[2023-12-31 13:12] LABS: ALT (SGPT) < 10 U/L (0-50); AST (SGOT) 23 U/L (17-59); Albumin 2.6 g/dl (3.5-5.0); Alkaline Phosphatase 116 U/L (38-126); Blood Urea Nitrogen 12 mg/dl (9-20); Calcium 8.8 mg/dl (8.4-10.2); Carbon Dioxide 29 mmol/L (22-30); Chloride 103 mmol/L (98-107); Glucose 97 mg/dl (70-99); Potassium 4.2 mmol/L (3.5-5.1); Sodium 140 mmol/L (135-145); Total Bilirubin 0.4 mg/dl (0.2-1.3); Total Protein 5.5 g/dl (6.3-8.2); eGFR > 60.00
== END ==
LOC: OLABP 11:45
PROVIDERS: ATTENDING PHYSICIAN Family Medicine
DX: I50.32 Chronic diastolic (congestive) heart failure (principal); I48.0 Paroxysmal atrial fibrillation; E11.9 Type 2 diabetes mellitus without complications; I11.0 Hypertensive heart disease with heart failure; B95.61 Methicillin susceptible Staphylococcus aureus infection as the cause of diseases classified elsewhere; M86.9 Osteomyelitis, unspecified
CPT/HCPCS: 36415; 80053; 85025

== ENCOUNTER → 2024-01-07 11:44 | Outpatient (REF) | payer OTHER, SELFPAY ==
[2024-01-07 12:05] LABS: % Basophils 0.6 % (0-2); % Eosinophils 7.2 % (0-6); % Immature Granulocytes 0.2 % (0-0.5); % Lymphocytes 28.9 % (20.5-51.1); % Monocytes 12.7 % (1.7-9.3); % Neutrophils 50.4 % (42.2-75.2); Absolute Basophils 0.1 10^3/uL (0-0.2); Absolute Eosinophils 0.6 10^3/uL (0-0.7); Absolute Lymphocytes 2.3 10^3/uL (1.2-3.4); Absolute Neutrophils 4.1 10^3/uL (1.4-6.5); Hematocrit 34.7 % (39.0-52.0); Hemoglobin 10.8 g/dL (13.0-18.0); Mean Corp Hgb Conc. 31.1 g/dL (33.0-37.0); Mean Corpuscular Hgb 27.9 pg (27.0-31.0); Mean Corpuscular Volume 89.7 fL (80.0-94.0); Mean Platelet Volume 10.2 fL (7.4-10.4); Nucleated Red Blood Cells % 0 % (-); Platelet Count 410 10^3/uL (130-400); Red Blood Cell Count 3.87 10^6/uL (4.70-6.10); Red Cell Dist. Width 14.9 % (11.5-14.5); White Blood Cell Count 8.1 10^3/uL (4.8-10.8)
[2024-01-07 12:34] LABS: ALT (SGPT) 14 U/L (0-50); AST (SGOT) 36 U/L (17-59); Albumin 3.3 g/dl (3.5-5.0); Alkaline Phosphatase 148 U/L (38-126); Blood Urea Nitrogen 17 mg/dl (9-20); Calcium 9.2 mg/dl (8.4-10.2); Carbon Dioxide 22 mmol/L (22-30); Chloride 104 mmol/L (98-107); Glucose 93 mg/dl (70-99); Potassium 4.7 mmol/L (3.5-5.1); Sodium 134 mmol/L (135-145); Total Bilirubin 0.4 mg/dl (0.2-1.3); Total Protein 6.6 g/dl (6.3-8.2); eGFR 56.83
== END ==
LOC: OLABP 11:44
PROVIDERS: ATTENDING PHYSICIAN Family Medicine
DX: I50.32 Chronic diastolic (congestive) heart failure (principal); I48.0 Paroxysmal atrial fibrillation; E11.9 Type 2 diabetes mellitus without complications; I11.0 Hypertensive heart disease with heart failure; B95.61 Methicillin susceptible Staphylococcus aureus infection as the cause of diseases classified elsewhere; M86.9 Osteomyelitis, unspecified; M06.9 Rheumatoid arthritis, unspecified
CPT/HCPCS: 36415; 80053; 85025

== ENCOUNTER → 2024-01-10 12:03 | Outpatient (REF) | payer OTHER, SELFPAY ==
[2024-01-10 12:58] LABS: Blood Urea Nitrogen 18 mg/dl (9-20); Calcium 8.8 mg/dl (8.4-10.2); Carbon Dioxide 23 mmol/L (22-30); Chloride 104 mmol/L (98-107); Glucose 90 mg/dl (70-99); Potassium 5.4 mmol/L (3.5-5.1); Sodium 133 mmol/L (135-145); eGFR 56.83
== END ==
LOC: OLABP 12:03
PROVIDERS: ATTENDING PHYSICIAN Family Medicine
DX: I50.32 Chronic diastolic (congestive) heart failure (principal); I48.0 Paroxysmal atrial fibrillation; E11.9 Type 2 diabetes mellitus without complications; I11.0 Hypertensive heart disease with heart failure; B95.61 Methicillin susceptible Staphylococcus aureus infection as the cause of diseases classified elsewhere; M86.9 Osteomyelitis, unspecified; M06.9 Rheumatoid arthritis, unspecified
CPT/HCPCS: 36415; 80048

== ENCOUNTER → 2024-01-14 10:16 | Outpatient (REF) | payer OTHER, SELFPAY ==
[2024-01-14 10:38] LABS: % Basophils 0.4 % (0-2); % Eosinophils 7.2 % (0-6); % Immature Granulocytes 0.2 % (0-0.5); % Monocytes 15.5 % (1.7-9.3); % Neutrophils 53.7 % (42.2-75.2); Absolute Eosinophils 0.7 10^3/uL (0-0.7); Absolute Lymphocytes 2.1 10^3/uL (1.2-3.4); Absolute Monocytes 1.4 10^3/uL (0.1-0.6); Absolute Neutrophils 4.9 10^3/uL (1.4-6.5); Hematocrit 32.7 % (39.0-52.0); Hemoglobin 10.4 g/dL (13.0-18.0); Mean Corp Hgb Conc. 31.8 g/dL (33.0-37.0); Mean Corpuscular Hgb 27.4 pg (27.0-31.0); Mean Corpuscular Volume 86.3 fL (80.0-94.0); Mean Platelet Volume 9.6 fL (7.4-10.4); Nucleated Red Blood Cells % 0 % (-); Platelet Count 373 10^3/uL (130-400); Red Blood Cell Count 3.79 10^6/uL (4.70-6.10); Red Cell Dist. Width 15.6 % (11.5-14.5); White Blood Cell Count 9.2 10^3/uL (4.8-10.8)
[2024-01-14 10:49] LABS: ALT (SGPT) 12 U/L (0-50); AST (SGOT) 29 U/L (17-59); Alkaline Phosphatase 114 U/L (38-126); Blood Urea Nitrogen 22 mg/dl (9-20); Calcium 9.5 mg/dl (8.4-10.2); Carbon Dioxide 26 mmol/L (22-30); Chloride 101 mmol/L (98-107); Glucose 102 mg/dl (70-99); Potassium 4.6 mmol/L (3.5-5.1); Sodium 136 mmol/L (135-145); Total Bilirubin 0.6 mg/dl (0.2-1.3); Total Protein 6.2 g/dl (6.3-8.2); eGFR 45.02
== END ==
LOC: OLABP 10:16
PROVIDERS: ATTENDING PHYSICIAN Family Medicine
DX: I50.32 Chronic diastolic (congestive) heart failure (principal); I48.0 Paroxysmal atrial fibrillation; E11.9 Type 2 diabetes mellitus without complications; I11.0 Hypertensive heart disease with heart failure; B95.61 Methicillin susceptible Staphylococcus aureus infection as the cause of diseases classified elsewhere; M86.9 Osteomyelitis, unspecified; M06.9 Rheumatoid arthritis, unspecified
CPT/HCPCS: 36415; 80053; 85025

== ENCOUNTER → 2024-01-21 12:04 | Outpatient (REF) | payer OTHER, SELFPAY ==
[2024-01-21 13:13] LABS: % Basophils 0.6 % (0-2); % Eosinophils 5.6 % (0-6); % Immature Granulocytes 0.3 % (0-0.5); % Lymphocytes 18.7 % (20.5-51.1); % Monocytes 11.5 % (1.7-9.3); % Neutrophils 63.3 % (42.2-75.2); Absolute Basophils 0.1 10^3/uL (0-0.2); Absolute Eosinophils 0.6 10^3/uL (0-0.7); Absolute Lymphocytes 1.9 10^3/uL (1.2-3.4); Absolute Monocytes 1.2 10^3/uL (0.1-0.6); Absolute Neutrophils 6.4 10^3/uL (1.4-6.5); Hematocrit 34.6 % (39.0-52.0); Hemoglobin 10.7 g/dL (13.0-18.0); Mean Corp Hgb Conc. 30.9 g/dL (33.0-37.0); Mean Corpuscular Hgb 27.5 pg (27.0-31.0); Mean Corpuscular Volume 88.9 fL (80.0-94.0); Mean Platelet Volume 9.7 fL (7.4-10.4); Nucleated Red Blood Cells % 0 % (-); Platelet Count 363 10^3/uL (130-400); Red Blood Cell Count 3.89 10^6/uL (4.70-6.10); Red Cell Dist. Width 15.3 % (11.5-14.5); White Blood Cell Count 10.1 10^3/uL (4.8-10.8)
[2024-01-21 13:41] LABS: ALT (SGPT) 12 U/L (0-50); AST (SGOT) 30 U/L (17-59); Albumin 3.3 g/dl (3.5-5.0); Alkaline Phosphatase 111 U/L (38-126); Blood Urea Nitrogen 21 mg/dl (9-20); Calcium 9.7 mg/dl (8.4-10.2); Carbon Dioxide 23 mmol/L (22-30); Chloride 98 mmol/L (98-107); Glucose 126 mg/dl (70-99); Potassium 4.4 mmol/L (3.5-5.1); Sodium 134 mmol/L (135-145); Total Bilirubin 0.5 mg/dl (0.2-1.3); Total Protein 6.9 g/dl (6.3-8.2); eGFR 45.02
== END ==
LOC: OLABP 12:04
PROVIDERS: ATTENDING PHYSICIAN Family Medicine
DX: I50.32 Chronic diastolic (congestive) heart failure (principal); I48.0 Paroxysmal atrial fibrillation; E11.9 Type 2 diabetes mellitus without complications; I11.0 Hypertensive heart disease with heart failure; B95.61 Methicillin susceptible Staphylococcus aureus infection as the cause of diseases classified elsewhere; M86.9 Osteomyelitis, unspecified; M06.9 Rheumatoid arthritis, unspecified
CPT/HCPCS: 36415; 80053; 85025; 86140

== ENCOUNTER 2024-01-23 06:26 | Day surgery (SDC) | payer OTHER, SELFPAY ==
[2024-01-23] VITALS (9 sets, daily range): BP systolic 116–150; BP diastolic 73–93; BMI 31.5
[2024-01-23 09:30] LABS: Glucose - Point of Care 91 mg/dl (70-99)
[2024-01-23] MEDS: VANCOCIN 300 ML IV (09:43)
[2024-01-23] MEDS: VANCOCIN 300 MG IV (09:43)
[2024-01-23] MEDS: NORMOSOL-R 1000 IV (09:44)
--- NOTE | 2024-01-23 11:01 | W.IMMPOSTOP ---
Surgical Immed Post Op Note
-
Primary Surgeon: MIKEL Disla MD
Assisting Surgeon:
Pre-op Diagnosis: Left dorsal wrist wound
Post-op Diagnosis: Same
Procedure Performed: Debridement, delayed primary closure left dorsal wrist
Anesthesia Type: Sedation
Specimen / Cultures: None
Estimated Blood Loss: 20 cc
Complications: None
Operative Findings: As expected
--- NOTE | 2024-01-23 11:01 | OR.RPT ---
Operative Report
Operative Report
Surgeon: MIKEL Disla MD
Preoperative diagnosis: Rheumatoid arthritis, septic wrist, left dorsal wrist wound
Postoperative diagnosis: Same
Procedure:
1. Debridement to fascia, left dorsal wrist, 5 x 5 cm
2. Delayed primary closure, left dorsal wrist, 4 cm
3. Arthrotomy of the radiocarpal joint with exploration and drainage
Anesthesia: Sedation
Complications: None
EBL: 20 cc
Indication for procedure: Patient is a 63-year-old male with a history of arthritis of the bilateral wrists complicated by septic joint. He was treated by Dr. Carbajal with repeat wrist debridements. The right wrist went on to subsequently healed
but the left wrist was complicated by hematoma and he was left with a large soft tissue deficit. He underwent successful flap reconstruction of the dorsal hand soft tissue deficit previously by myself. He now presents with a granulating wound bed.
In order to prevent further wound development and exposure of the wrist joint, delayed primary closure will be performed along with the debridement. Risk the procedure were reviewed including bleeding, need for repeat procedure, infection, and
pain. He understood these risk desired to proceed
Procedure in detail: Patient was identified in the preoperative area and the surgical site was confirmed to be the left dorsal wrist. Consents were confirmed and all questions were answered. Patient was taken back to the operating room and
anesthesia was performed via sedation. The left wrist was prepped and draped in usual sterile fashion using Betadine. Local anesthesia was obtained with a combination of 1% lidocaine with epinephrine and Marcaine. Timeout for patient safety was
performed was confirmed that preoperative vancomycin had been administered and bilateral SCDs were in place. Procedure began with the debridement of the dorsal wrist down to fascia over an area of 5 x 5 cm. This was done with a 15 blade and Bovie
electrocautery. The radial aspect of the proximal wound overlying the wrist joint was then inspected and the wrist joint was opened for irrigation. No purulence was encountered. 3 L of normal saline were then used to irrigate the wrist joint and
the remainder of the wound. A delayed primary closure of the radial aspect of the wound of the length of 4 cm then performed using 2-0 nylon sutures. Patient tolerated the procedure well was performed without complication. All counts were correct
at the end the case. Was taken to the PACU for further care.
[2024-01-23 12:32] LABS: Glucose - Point of Care 80 mg/dl (70-99)
== END 2024-01-23 14:20 ==
LOC: SDS 06:26
PROVIDERS: ATTENDING PHYSICIAN Surgery Plastic and Reconstructive Surgery; FAMILY PHYSICIAN Family Medicine
DX: M00.832 Arthritis due to other bacteria, left wrist (principal); M06.832 Other specified rheumatoid arthritis, left wrist; S61.502A Unspecified open wound of left wrist, initial encounter; Y83.8 Other surgical procedures as the cause of abnormal reaction of the patient, or of later complication, without mention of misadventure at the time of the procedure; Z86.19 Personal history of other infectious and parasitic diseases; I96 Gangrene, not elsewhere classified
CPT/HCPCS: 25040; 11043; 82962; A4570

== ENCOUNTER → 2024-01-25 10:00 | Outpatient (REF) | payer OTHER, SELFPAY ==
[2024-01-25 11:20] LABS: Blood Urea Nitrogen 17 mg/dl (9-20); Calcium 9.6 mg/dl (8.4-10.2); Carbon Dioxide 30 mmol/L (22-30); Chloride 99 mmol/L (98-107); Glucose 119 mg/dl (70-99); Magnesium 2.1 mg/dl (1.6-2.3); Potassium 4.7 mmol/L (3.5-5.1); Sodium 137 mmol/L (135-145); eGFR 52.31
[2024-01-25 11:28] LABS: Vitamin D, 25-OH*** < 12.8 ng/mL (30-80)
[2024-01-25 11:42] LABS: TSH Reflex To Free T4 2.73 uIU/ml (0.47-4.68)
[2024-01-25 13:43] LABS: Vitamin B12 323 pg/ml (239-931)
== END ==
LOC: OLABP 10:00
PROVIDERS: ATTENDING PHYSICIAN Family Medicine
DX: I50.32 Chronic diastolic (congestive) heart failure (principal); I48.0 Paroxysmal atrial fibrillation; E11.9 Type 2 diabetes mellitus without complications; I11.0 Hypertensive heart disease with heart failure; B95.61 Methicillin susceptible Staphylococcus aureus infection as the cause of diseases classified elsewhere; M86.9 Osteomyelitis, unspecified; M06.9 Rheumatoid arthritis, unspecified
CPT/HCPCS: 36415; 80048; 82306; 82607; 83735; 84207; 84443

== ENCOUNTER → 2024-01-28 13:17 | Outpatient (REF) | payer OTHER, SELFPAY ==
[2024-01-28 13:46] LABS: % Basophils 0.8 % (0-2); % Eosinophils 6.8 % (0-6); % Immature Granulocytes 0.3 % (0-0.5); % Lymphocytes 24.9 % (20.5-51.1); % Neutrophils 54.2 % (42.2-75.2); Absolute Basophils 0.1 10^3/uL (0-0.2); Absolute Eosinophils 0.6 10^3/uL (0-0.7); Absolute Lymphocytes 2.3 10^3/uL (1.2-3.4); Absolute Monocytes 1.2 10^3/uL (0.1-0.6); Hematocrit 32.2 % (39.0-52.0); Mean Corp Hgb Conc. 31.1 g/dL (33.0-37.0); Mean Corpuscular Hgb 27.2 pg (27.0-31.0); Mean Corpuscular Volume 87.7 fL (80.0-94.0); Mean Platelet Volume 9.7 fL (7.4-10.4); Nucleated Red Blood Cells % 0 % (-); Platelet Count 341 10^3/uL (130-400); Red Blood Cell Count 3.67 10^6/uL (4.70-6.10); Red Cell Dist. Width 15.6 % (11.5-14.5); White Blood Cell Count 9.2 10^3/uL (4.8-10.8)
[2024-01-28 13:53] LABS: ALT (SGPT) 14 U/L (0-50); AST (SGOT) 35 U/L (17-59); Albumin 3.6 g/dl (3.5-5.0); Alkaline Phosphatase 108 U/L (38-126); Blood Urea Nitrogen 17 mg/dl (9-20); Carbon Dioxide 28 mmol/L (22-30); Chloride 103 mmol/L (98-107); Glucose 83 mg/dl (70-99); Potassium 4.4 mmol/L (3.5-5.1); Sodium 137 mmol/L (135-145); Total Bilirubin 0.3 mg/dl (0.2-1.3); Total Protein 6.7 g/dl (6.3-8.2); eGFR 56.83
== END ==
LOC: OLABP 13:17
PROVIDERS: ATTENDING PHYSICIAN Family Medicine
DX: I50.32 Chronic diastolic (congestive) heart failure (principal); I48.0 Paroxysmal atrial fibrillation; E11.9 Type 2 diabetes mellitus without complications; I11.0 Hypertensive heart disease with heart failure; B95.61 Methicillin susceptible Staphylococcus aureus infection as the cause of diseases classified elsewhere; M86.9 Osteomyelitis, unspecified; M06.9 Rheumatoid arthritis, unspecified
CPT/HCPCS: 36415; 80053; 85025; 86140

== ENCOUNTER → 2024-02-04 11:22 | Outpatient (REF) | payer OTHER, SELFPAY ==
[2024-02-04 12:27] LABS: % Basophils 0.6 % (0-2); % Eosinophils 4.1 % (0-6); % Immature Granulocytes 0.4 % (0-0.5); % Lymphocytes 22.4 % (20.5-51.1); % Monocytes 11.5 % (1.7-9.3); Absolute Basophils 0.1 10^3/uL (0-0.2); Absolute Eosinophils 0.3 10^3/uL (0-0.7); Absolute Lymphocytes 1.9 10^3/uL (1.2-3.4); Absolute Neutrophils 5.1 10^3/uL (1.4-6.5); Hematocrit 32.3 % (39.0-52.0); Hemoglobin 10.3 g/dL (13.0-18.0); Mean Corp Hgb Conc. 31.9 g/dL (33.0-37.0); Mean Corpuscular Hgb 27.3 pg (27.0-31.0); Mean Corpuscular Volume 85.7 fL (80.0-94.0); Mean Platelet Volume 10.5 fL (7.4-10.4); Nucleated Red Blood Cells % 0 % (-); Platelet Count 367 10^3/uL (130-400); Red Blood Cell Count 3.77 10^6/uL (4.70-6.10); Red Cell Dist. Width 15.7 % (11.5-14.5); White Blood Cell Count 8.4 10^3/uL (4.8-10.8)
[2024-02-04 12:50] LABS: ALT (SGPT) 16 U/L (0-50); AST (SGOT) 38 U/L (17-59); Albumin 3.5 g/dl (3.5-5.0); Alkaline Phosphatase 97 U/L (38-126); Blood Urea Nitrogen 11 mg/dl (9-20); Carbon Dioxide 26 mmol/L (22-30); Chloride 103 mmol/L (98-107); Glucose 136 mg/dl (70-99); Potassium 3.5 mmol/L (3.5-5.1); Sodium 135 mmol/L (135-145); Total Bilirubin 0.4 mg/dl (0.2-1.3); Total Protein 6.6 g/dl (6.3-8.2); eGFR > 60.00
== END ==
LOC: OLABP 11:22
PROVIDERS: ATTENDING PHYSICIAN Family Medicine
DX: I50.32 Chronic diastolic (congestive) heart failure (principal); I48.0 Paroxysmal atrial fibrillation; E11.9 Type 2 diabetes mellitus without complications; I11.0 Hypertensive heart disease with heart failure; B95.61 Methicillin susceptible Staphylococcus aureus infection as the cause of diseases classified elsewhere; M86.9 Osteomyelitis, unspecified; M06.9 Rheumatoid arthritis, unspecified
CPT/HCPCS: 36415; 80053; 85025; 86140

== ENCOUNTER 2024-03-31 06:41 | Day surgery (SDC) | payer OTHER, SELFPAY ==
[2024-03-31] VITALS (13 sets, daily range): BP systolic 92–145; BP diastolic 62–82; BMI 28.5
[2024-03-31] MEDS: NORMOSOL-R 1000 IV (10:30)
[2024-03-31] MEDS: DILAUDID 0.25 MG IV (15:09)
[2024-03-31] MEDS: ROXICODONE 5 MG PO (16:02)
== END 2024-03-31 17:20 | disposition home or self-care (01) ==
LOC: SDS 06:41
PROVIDERS: ATTENDING PHYSICIAN Orthopaedic Surgery Hand Surgery
DX: M86.8X3 Other osteomyelitis, forearm (principal); M05.742 Rheumatoid arthritis with rheumatoid factor of left hand without organ or systems involvement
CPT/HCPCS: 25810; C1713; A4570; C1763

== ENCOUNTER 2024-07-24 08:53 | Outpatient (RCR) | payer OTHER, SELFPAY | END 2024-07-24 23:59 | disposition home or self-care (01) | LOC: ROT 08:53 | PROVIDERS: ATTENDING PHYSICIAN Family Medicine | DX: R26.2 Difficulty in walking, not elsewhere classified (principal); Z73.6 Limitation of activities due to disability | CPT/HCPCS: 97110; 97112; 97116; 97163; 97166; 97530; 97535 ==

== ENCOUNTER 2024-08-20 10:57 | Outpatient (RCR) | payer OTHER, SELFPAY | END 2024-08-20 23:59 | disposition home or self-care (01) | LOC: ROT 10:57 | PROVIDERS: ATTENDING PHYSICIAN Family Medicine | DX: R26.2 Difficulty in walking, not elsewhere classified (principal); Z73.6 Limitation of activities due to disability | CPT/HCPCS: 97110; 97112; 97116; 97140; 97530; 97535 ==

== ENCOUNTER 2024-09-12 11:57 | Outpatient (RCR) | payer OTHER, SELFPAY | END 2024-09-12 23:59 | disposition home or self-care (01) | LOC: ROT 11:57 | PROVIDERS: ATTENDING PHYSICIAN Family Medicine | DX: Z98.1 Arthrodesis status (principal); Z73.6 Limitation of activities due to disability | CPT/HCPCS: 97110; 97112; 97530 ==

== ENCOUNTER → 2024-10-18 10:55 | Outpatient (REF) | payer OTHER, SELFPAY | LOC: RAD 10:55 | PROVIDERS: ATTENDING PHYSICIAN Orthopaedic Surgery Orthopaedic Surgery of the Spine; FAMILY PHYSICIAN Family Medicine | DX: M48.062 Spinal stenosis, lumbar region with neurogenic claudication (principal); B37.9 Candidiasis, unspecified; J98.8 Other specified respiratory disorders | CPT/HCPCS: 72131 ==

== ENCOUNTER 2024-10-21 09:54 | Outpatient (RCR) | payer OTHER, MEDICARE, SELFPAY | END 2024-10-21 23:59 | disposition home or self-care (01) | LOC: ROT 09:54 | PROVIDERS: ATTENDING PHYSICIAN Orthopaedic Surgery Orthopaedic Surgery of the Spine; FAMILY PHYSICIAN Family Medicine | DX: R26.2 Difficulty in walking, not elsewhere classified (principal); Z73.6 Limitation of activities due to disability; M54.50 Low back pain, unspecified; G62.9 Polyneuropathy, unspecified; G89.29 Other chronic pain; R26.89 Other abnormalities of gait and mobility; M62.81 Muscle weakness (generalized); Z98.1 Arthrodesis status | CPT/HCPCS: 97110; 97112; 97116; 97530 ==

== ENCOUNTER → 2024-11-21 06:44 | Outpatient (REF) | payer OTHER, SELFPAY | LOC: RAD 06:44 | PROVIDERS: ATTENDING PHYSICIAN Family Medicine | DX: B37.9 Candidiasis, unspecified (principal); J98.8 Other specified respiratory disorders | CPT/HCPCS: 71046 ==

== ENCOUNTER 2024-11-25 09:53 | Outpatient (RCR) | payer OTHER, MEDICARE, SELFPAY | END 2024-11-25 23:59 | disposition home or self-care (01) | LOC: ROT 09:53 | PROVIDERS: ATTENDING PHYSICIAN Orthopaedic Surgery Orthopaedic Surgery of the Spine; FAMILY PHYSICIAN Family Medicine | DX: R26.2 Difficulty in walking, not elsewhere classified (principal); Z73.6 Limitation of activities due to disability; M54.50 Low back pain, unspecified; G62.9 Polyneuropathy, unspecified; G89.29 Other chronic pain; R26.89 Other abnormalities of gait and mobility; M62.81 Muscle weakness (generalized); Z98.1 Arthrodesis status | CPT/HCPCS: 97110; 97112; 97116; 97140; 97530 ==

== ENCOUNTER 2024-12-26 10:00 | Outpatient (RCR) | payer MEDICARE, BC, SELFPAY | END 2024-12-26 23:59 | disposition home or self-care (01) | LOC: ROT 10:00 | PROVIDERS: ATTENDING PHYSICIAN Orthopaedic Surgery Orthopaedic Surgery of the Spine; FAMILY PHYSICIAN Family Medicine | DX: R26.2 Difficulty in walking, not elsewhere classified (principal); Z73.6 Limitation of activities due to disability; M54.50 Low back pain, unspecified; G62.9 Polyneuropathy, unspecified; G89.29 Other chronic pain; R26.89 Other abnormalities of gait and mobility; M62.81 Muscle weakness (generalized); Z98.1 Arthrodesis status | CPT/HCPCS: 97110; 97112; 97116; 97530 ==

== ENCOUNTER 2025-01-23 12:05 | Outpatient (RCR) | payer OTHER, SELFPAY | END 2025-01-23 23:59 | disposition home or self-care (01) | LOC: ROT 12:05 | PROVIDERS: ATTENDING PHYSICIAN Orthopaedic Surgery Orthopaedic Surgery of the Spine; FAMILY PHYSICIAN Family Medicine | DX: R26.2 Difficulty in walking, not elsewhere classified (principal); Z73.6 Limitation of activities due to disability; R26.89 Other abnormalities of gait and mobility; M54.50 Low back pain, unspecified; G62.9 Polyneuropathy, unspecified; G89.29 Other chronic pain; M62.81 Muscle weakness (generalized); Z98.1 Arthrodesis status | CPT/HCPCS: 97110; 97112; 97116; 97530 ==

== ENCOUNTER 2025-02-20 10:11 | Outpatient (RCR) | payer OTHER, SELFPAY | END 2025-02-20 23:59 | disposition home or self-care (01) | LOC: ROT 10:11 | PROVIDERS: ATTENDING PHYSICIAN Orthopaedic Surgery Orthopaedic Surgery of the Spine; FAMILY PHYSICIAN Family Medicine | DX: R26.2 Difficulty in walking, not elsewhere classified (principal); R26.89 Other abnormalities of gait and mobility; M54.50 Low back pain, unspecified; G62.9 Polyneuropathy, unspecified; Z73.6 Limitation of activities due to disability; M62.81 Muscle weakness (generalized); G89.29 Other chronic pain; Z98.1 Arthrodesis status | CPT/HCPCS: 97110; 97112; 97116; 97530 ==

== ENCOUNTER 2025-03-24 10:02 | Outpatient (RCR) | payer OTHER, SELFPAY | END 2025-03-24 23:59 | disposition home or self-care (01) | LOC: ROT 10:02 | PROVIDERS: ATTENDING PHYSICIAN Orthopaedic Surgery Orthopaedic Surgery of the Spine; FAMILY PHYSICIAN Family Medicine | DX: R26.2 Difficulty in walking, not elsewhere classified (principal); R26.89 Other abnormalities of gait and mobility; M54.50 Low back pain, unspecified; G62.9 Polyneuropathy, unspecified; M62.81 Muscle weakness (generalized); Z73.6 Limitation of activities due to disability; G89.29 Other chronic pain; Z98.1 Arthrodesis status | CPT/HCPCS: 97110; 97112; 97116; 97140; 97530 ==

== ENCOUNTER 2025-04-21 08:59 | Outpatient (RCR) | payer OTHER, SELFPAY | END 2025-04-21 23:59 | disposition home or self-care (01) | LOC: ROT 08:59 | PROVIDERS: ATTENDING PHYSICIAN Orthopaedic Surgery Orthopaedic Surgery of the Spine; FAMILY PHYSICIAN Family Medicine | DX: R26.2 Difficulty in walking, not elsewhere classified (principal); R26.89 Other abnormalities of gait and mobility; M62.81 Muscle weakness (generalized); Z73.6 Limitation of activities due to disability; G89.29 Other chronic pain; M54.50 Low back pain, unspecified; G62.9 Polyneuropathy, unspecified; Z98.1 Arthrodesis status | CPT/HCPCS: 97110; 97112; 97116; 97530 ==

== ENCOUNTER 2025-05-25 11:36 | Outpatient (RCR) | payer OTHER, SELFPAY | END 2025-05-25 23:59 | disposition home or self-care (01) | LOC: ROT 11:36 | PROVIDERS: ATTENDING PHYSICIAN Orthopaedic Surgery Orthopaedic Surgery of the Spine; FAMILY PHYSICIAN Family Medicine | DX: R26.2 Difficulty in walking, not elsewhere classified (principal); R26.89 Other abnormalities of gait and mobility; M62.81 Muscle weakness (generalized); Z73.6 Limitation of activities due to disability; G89.29 Other chronic pain; M54.50 Low back pain, unspecified; G62.9 Polyneuropathy, unspecified; Z98.1 Arthrodesis status | CPT/HCPCS: 97110; 97112; 97116; 97530 ==

== ENCOUNTER 2025-06-19 10:52 | Outpatient (RCR) | payer OTHER, SELFPAY | END 2025-06-19 23:59 | disposition home or self-care (01) | LOC: ROT 10:52 | PROVIDERS: ATTENDING PHYSICIAN Orthopaedic Surgery Orthopaedic Surgery of the Spine; FAMILY PHYSICIAN Family Medicine | DX: R26.2 Difficulty in walking, not elsewhere classified (principal); R26.89 Other abnormalities of gait and mobility; M62.81 Muscle weakness (generalized); G89.29 Other chronic pain; Z73.6 Limitation of activities due to disability; M54.50 Low back pain, unspecified; G62.9 Polyneuropathy, unspecified; Z98.1 Arthrodesis status | CPT/HCPCS: 97110; 97112; 97116; 97530 ==

== ENCOUNTER 2025-07-14 11:38 | Outpatient (RCR) | payer OTHER, SELFPAY | END 2025-07-14 23:59 | disposition home or self-care (01) | LOC: ROT 11:38 | PROVIDERS: ATTENDING PHYSICIAN Orthopaedic Surgery Orthopaedic Surgery of the Spine; FAMILY PHYSICIAN Family Medicine | DX: R26.2 Difficulty in walking, not elsewhere classified (principal); R26.89 Other abnormalities of gait and mobility; M62.81 Muscle weakness (generalized); G89.29 Other chronic pain; M54.50 Low back pain, unspecified; Z73.6 Limitation of activities due to disability; G62.9 Polyneuropathy, unspecified; Z98.1 Arthrodesis status | CPT/HCPCS: 97110; 97112; 97116; 97530 ==

== ENCOUNTER 2025-08-21 11:11 | Outpatient (RCR) | payer OTHER, SELFPAY | END 2025-08-21 23:59 | disposition home or self-care (01) | LOC: ROT 11:11 | PROVIDERS: ATTENDING PHYSICIAN Orthopaedic Surgery Orthopaedic Surgery of the Spine; FAMILY PHYSICIAN Family Medicine | DX: R26.2 Difficulty in walking, not elsewhere classified (principal); R26.89 Other abnormalities of gait and mobility; M62.81 Muscle weakness (generalized); G89.29 Other chronic pain; M54.50 Low back pain, unspecified; Z73.6 Limitation of activities due to disability; G62.9 Polyneuropathy, unspecified; Z98.1 Arthrodesis status | CPT/HCPCS: 97110; 97112; 97116; 97530 ==

== ENCOUNTER 2025-09-22 08:18 | Outpatient (RCR) | payer OTHER, SELFPAY | END 2025-09-25 23:59 | disposition home or self-care (01) | LOC: ROT 08:18 | PROVIDERS: ATTENDING PHYSICIAN Orthopaedic Surgery Orthopaedic Surgery of the Spine; FAMILY PHYSICIAN Family Medicine | DX: R26.2 Difficulty in walking, not elsewhere classified (principal); R26.89 Other abnormalities of gait and mobility; M62.81 Muscle weakness (generalized); G89.29 Other chronic pain; M54.50 Low back pain, unspecified; Z73.6 Limitation of activities due to disability; G62.9 Polyneuropathy, unspecified; Z98.1 Arthrodesis status | CPT/HCPCS: 97110; 97112; 97116; 97530 ==

== ENCOUNTER 2025-10-09 08:46 | Outpatient (RCR) | payer OTHER, SELFPAY | END 2025-10-16 23:59 | disposition home or self-care (01) | LOC: ROT 08:46 | PROVIDERS: ATTENDING PHYSICIAN Orthopaedic Surgery Orthopaedic Surgery of the Spine; FAMILY PHYSICIAN Family Medicine | DX: R26.2 Difficulty in walking, not elsewhere classified (principal); R26.89 Other abnormalities of gait and mobility; M62.81 Muscle weakness (generalized); G89.29 Other chronic pain; M54.50 Low back pain, unspecified; Z73.6 Limitation of activities due to disability; G62.9 Polyneuropathy, unspecified; Z98.1 Arthrodesis status | CPT/HCPCS: 97110; 97112; 97116; 97530 ==

== ENCOUNTER 2025-11-24 07:19 | Outpatient (RCR) | payer OTHER, SELFPAY | END 2025-11-24 23:59 | disposition home or self-care (01) | LOC: ROT 07:19 | PROVIDERS: ATTENDING PHYSICIAN Orthopaedic Surgery Orthopaedic Surgery of the Spine; FAMILY PHYSICIAN Family Medicine | DX: R26.2 Difficulty in walking, not elsewhere classified (principal); R26.89 Other abnormalities of gait and mobility; M62.81 Muscle weakness (generalized); G89.29 Other chronic pain; M54.50 Low back pain, unspecified; Z73.6 Limitation of activities due to disability; G62.9 Polyneuropathy, unspecified; Z98.1 Arthrodesis status | CPT/HCPCS: 97112; 97530 ==